=== PATIENT | male | born 1965 | race Caucasian/White ===

== ENCOUNTER 2018-04-12 19:48 | Observation (INO) | payer OTHER, SELFPAY ==
[2018-04-12 19:49] VITALS: PULSE 79; RESP 18; TEMP 36.8; O2SAT 97; BMI 25.0
--- NOTE | 2018-04-12 20:18 | EKG12_ITS ---
Test Reason : CP Blood Pressure : / mmHG Vent. Rate : 069 BPM Atrial Rate : 069 BPM P-R Int : 136 ms QRS Dur : 084 ms QT Int : 370 ms P-R-T Axes : 051 078 031 degrees QTc Int : 396 ms Normal sinus rhythm Normal ECG Confirmed by AFSHAN JAMES, WILLI ([id number]), graphics editor INNA SALAZAR ([id number]) on 04/13/2018 11:59:38 AM Referred By: YANIRA Confirmed By:WILLI CAVANAUGH MD
[2018-04-12] MEDS: Aspirin 81 MG TAB.CHEW 324 MG PO (20:30)
--- NOTE | 2018-04-12 20:45 | RAD_ITS ---
STUDY: X-RAY CHEST REASON FOR EXAM: Male, 52 years old. Dizziness TECHNIQUE: AP portable COMPARISON: None. FINDINGS: Lungs are mildly hyperinflated and there is interstitial prominence in the lower lobes. No focal lobar infiltration is observed.. There is no demonstrated pleural abnormality. Normal size heart. Normal mediastinum and thao. Normal visualized pulmonary arteries. Normal visualized aortic arch and descending thoracic aorta. Normal visualized thoracic spine. Normal visualized ribs, clavicles, and shoulders. There is no demonstrated abnormality of the visualized soft tissue structures of the upper abdomen. RAD/Chest 1 View (Portable) IMPRESSION: Mild hyperinflation and interstitial prominence. No acute cardiopulmonary pathology Electronically Signed: Jose Manuel Barroso MD at 21:57 EST , Service support ,
[2018-04-12] MEDS: 0.9% Normal Saline 1,000 ML 150 ML IV (20:47)
[2018-04-12 20:56] VITALS: BP 135/83; PULSE 66; RESP 23; O2SAT 98
[2018-04-12 21:07] LABS: Absolute Lymphocyte Count 3.62 X10^3/ul (0.83-4.51); Absolute Neutrophil Count 9.6 X10^3/uL (2.0-7.7); Basophil# 0.07 X10^3/uL; Basophil% 0.5 % (0-1); Eosinophil# 0.24 X10^3/uL; Eosinophils% 1.6 % (0-5); Hematocrit 48.7 % (40-54); Hemoglobin 15.8 g/dl (13.0-16.5); Lymphocyte # 3.62 X10^3/ul (4.0); Lymphocyte % 24.1 % (19-41); Mean Corp Hgb Conc 32.4 g/gl (32-36); Mean Corpuscular Hgb 29.8 pg (27.0-32.0); Mean Corpuscular Volume 91.7 fL (80-94); Mean Platelet Vol. 10.8 fl (6.2-12.0); Monocyte# 1.43 X10^3/uL; Monocyte% 9.5 % (0-10); Neutrophil # 9.59 X10^3/uL (2.7-7.7); Neutrophil % 63.9 % (47-70); Platelet Count 227 K/mm3 (150-450); RBC Distribution Width CV 13.7 % (11.6-14.6); RBC Distribution Width SD 45.6 fl (35.1-43.9); Red Blood Count 5.31 M/mm3 (4.6-6.2)
[2018-04-12 21:14] LABS: POSITIVE COUNT NO; POSITIVE DIFFERENTIAL NO; POSITIVE MORPHOLOGY NO
[2018-04-12 21:17] LABS: D-Dimer Quantitative (DVT/PE) 0.39 FEU/ug/m (0.27-0.49)
[2018-04-12 21:26] LABS: Anion Gap 6 (5-15); BUN 21 mg/dL (7-18); BUN/Creat Ratio 18.3 RATIO (10-20); Calcium,Total 8.8 mg/dL (8.5-10.1); Chloride 108 mmol/L (98-107); Creatinine, Serum 1.15 mg/dL (0.70-1.30); EST Glomerular Filtration Rate 71 mL/min (>60); Est Glom Filt Rate - Afr Amer 85 mL/min (>60); Estimated Creatinine Clearance 71.87 ml/min; Glucose 92 mg/dL (74-106); Potassium 4.2 mmol/L (3.5-5.1); Sodium Level 141 mmol/L (136-145)
--- NOTE | 2018-04-12 21:47 | HP.PCM_ITS ---
Problem List (1) Chest pain Status: Acute (2) Nausea and vomiting Status: Acute History of Present Illness Date of Admission: 04/12/18 Chief Complaint: chest pain The patient is a 52 year old M with a significant history of tobacco abuse;hypertension and hyperlipidemia who presents with one and a half to two weeks history of chest pain. His chest pain is sharp in quality and it is episodic. On a scale of 1-10 he rates as between 6 and 7. Patient reported that his symptoms first started with left arm numbness and pain. Later he developed nausea;vomiting; lightheadedness and episodic chest pain. He reports that his symptoms are relieved with sleeping. Because of his symptoms patient became anxious and he realized that his heart has been racing. Because of persistence of his symptoms patient came to the emergency department. Also patient reports diaphoresis. He is unsure whether diaphoresis occurs at the same time of chest pain or not. Reports history of hypertension and hyperlipidemia however he does not follow up with a PCP. Past Medical History Medical History: Medical History (Last Updated 04/13/18 @ 00:22 by Sascha Sheldon MD) Hyperlipidemia E78.5 Hypertension I10 Allergies Penicillins [PCN] Allergy (Verified 04/12/18 19:49) Itching Home Medications: Ambulatory Orders Medication Instructions Recorded Aspirin 81 mg PO DAILY 04/12/18 Surgical History: no surgical history Smoking Status: Current every day smoker Tobacco Use: Cigarettes Alcohol: Rare - *Family History Paternal History Items: Heart Disease - Report of father from heart attack in his 50s., Stroke - Father Review of Systems Constitutional: Denies: Chills, Fever, Weight Change HEENT: Denies: Head Aches, Sinus Congestion, Sinus Drainage Cardiovascular: Reports: Chest Pain, Palpitations Respiratory: Denies: Cough, Shortness of breath at rest, Sputum production Gastrointestinal: Reports: Nausea, Vomiting. Denies: Abdominal Pain Genitourinary: Denies: Dysuria Musculoskeletal: Denies: Joint Pain, Joint Tenderness Skin: Denies: Rash, Wounds Neurological: Reports: Numbness - Left arm. Denies: Focal weakness, Tingling Psychiatric: Reports: Anxiety. Denies: Depression, Homicidal Ideations, Suicidal Ideations Hematologic/ Lymphatic: Denies: Easy Bruising, Easy Bleeding VTE Information - Inpt Only VTE Present on Admission: No VTE Mechan Device Prophylaxis: None VTE Pharm Prophylaxis ordered?: Yes Patient Problems: Active and Suspected Problems (Last Updated 04/13/18 @ 00:22 by Sascha Sheldon MD) Chest pain (Acute) Nausea and vomiting (Acute) - Physical Exam General: Alert, Oriented x3, Cooperative HEENT: Atraumatic, PERRLA, EOMI, Normocephalic Neck: Supple, No JVD, Negative Carotid Bruits Lungs: Clear to auscultation, Normal air movement Cardiovascular: Regular rate, No murmurs Abdomen: Bowel Sounds Present, Soft, Non Tender Extremities: No edema, Capillary Refill Less than 3 Seconds Skin: No rashes, No breakdown Musculoskeletal: No Muscle Wasting Neurological: Neuro grossly intact Psych/Mental Status: Normal Affect, Appropriate Vital Signs Temp Pulse Resp BP Pulse Ox 98.2 F 66 23 H 135/83 H 98 04/12/18 19:49 04/12/18 20:56 04/12/18 20:56 04/12/18 20:56 04/12/18 20:56 Oxygen Delivery Method Room Air Weight: 74.661 kg Body Mass Index (BMI) 25.0 Laboratory Tests Past 24 Hrs 04/12/18 04/12/18 04/12/18 20:45 20:45 20:45 WBC 15.0 H RBC 5.31 Hgb 15.8 Hct 48.7 MCV 91.7 MCH 29.8 MCHC 32.4 RDW 13.7 RDW Differential 45.6 H Plt Count 227 MPV 10.8 Immature Gran % (Auto) 0.400 Neut % (Auto) 63.9 Lymph % (Auto) 24.1 [place] % (Auto) 9.5 Eos % (Auto) 1.6 Baso % (Auto) 0.5 Absolute Neuts (auto) 9.6 H Absolute Lymphs (auto) 3.62 Total Counted Not Reportable D-Dimer Quant (PE/DVT) 0.39 Sodium 141 Potassium 4.2 Chloride 108 H Carbon Dioxide 27.0 Anion Gap 6 BUN 21 H Creatinine 1.15 Estim Creat Clear Calc 71.87 Est GFR (MDRD) Af Amer 85 Est GFR (MDRD) Non-Af 71 BUN/Creatinine Ratio 18.3 Glucose 92 Calcium 8.8 Troponin I < 0.015 Assessment/Plan All Active Problems (Last Updated 04/13/18 @ 00:22 by Sascha Sheldon MD) Chest pain (Acute) Nausea and vomiting (Acute) The patient is a 52 year old M with a significant history of alcohol abuse; hypertension and hyperlipidemia who presents with one and a half to two weeks history of chest pain; nausea, vomiting, numbness of left hand, diaphoresis and palpitations. Chest pain Admit to a monitored bed on PCU CXR independently reviewed confirms no acute cardiopulmonary process. EKG independently reviewed confirms sinus rhythm Received aspirin 324 mg at emergency department. Continue ASA 81 mg p.o. daily SL NTG 0.4 mg prn as needed for chest pain High intensity statin started. Serial cardiac enzymes Stat EKG as needed for chest pain Treadmill stress test with nuclear imaging in the AM if the cardiac enzymes are negative. Patient reported that he has right-sided sciatica but he is willing to try running on a treadmill. Nausea and vomiting Could be due to autonomic symptoms from chest pain due to cardiac origin. It could also be viral. Rule out cardiac symptoms with stress test as above. HTN On admission blood pressure was above goal but not very excessive. Will trend blood pressure at this time. After stress test consider long-term blood pressure management. Hyperlipidemia Fasting lipids ordered. High intensity statin started. Tobacco abuse Counseled Patient refused nicotine patch. DVT prophylaxis Subcutaneous Lovenox. Code Visit OBSV E&M: 05011 Initial observation care L3
--- NOTE | 2018-04-12 21:50 | ED.VISSUMM ---
- ER Visit Summary Date of Service: 04/12/18 Chief Complaint: [Chest pain] History of Present Illness: The patient is a 52 M [presents the emergency department with complaint of intermittent chest discomfort over the last week and a half. Patient complains of feeling nauseated with standing. Patient had pain in the left chest and at times radiates to his left arm. Patient is never had symptoms like this before. He denies any diaphoresis or exertional dyspnea. Patient states that his father before the age of 53 of a heart attack. Patient used to see a doctor and has a history of hypertension and high cholesterol but is currently on no medications. Patient is a smoker. He denies recent travel or surgery.] Physical Examination: [HEENT-PERRLA, EOMI. Cranial nerves II through XII grossly intact. TMs clear. Mucous membranes moist. No adenopathy. Cardiovascular-regular rate and rhythm without murmur or ectopy Lungs-clear to auscultation, chest wall stable without crepitus or subcu emphysema Abdomen-normoactive bowel sounds, soft, nontender, no rebound or rigidity, no peritoneal signs. Extremities-intact ?4, normal range of motion, normal pulses, atraumatic] Test Results: EKG obtained arrival shows sinus rhythm with a ventricular rate of 69 bpm with no acute ST segment changes. CBC with differential is normal. Chemistries were normal. Troponin was less than 0.015. D-dimer was normal at 0.39. Chest x-ray showed nothing acute. [] Emergency Department Course and Treatment: [Patient received aspirin 324 mg p.o.] Treatment Plan: [Admit for further workup and evaluation. Patient's heart score is a 4.] Disposition: [Admit] Impression: [Chest pain-rule out acute coronary syndrome] This note was generated with [employer] dictation software. It may contain incorrect words, spelling, and punctuation that were not noted in review of the chart prior to signing ED Disposition - Plan for ED Patient: Chief Complaint: Dizziness Referrals: Care Physician,No Primary [Primary Care Provider] -
[2018-04-12 23:22] VITALS: BMI 25.0
[2018-04-12 23:23] VITALS: BP 140/68; PULSE 63; PULSE 66; RESP 18; TEMP 36.4; O2SAT 97
[2018-04-12 23:25] VITALS: BP 128/73
[2018-04-12 23:33] VITALS: O2SAT 96
[2018-04-12 23:34] VITALS: BMI 25.1
--- NOTE | 2018-04-13 00:15 | EKG12_ITS ---
Test Reason : ADMIT CP Blood Pressure : / mmHG Vent. Rate : 062 BPM Atrial Rate : 062 BPM P-R Int : 152 ms QRS Dur : 090 ms QT Int : 390 ms P-R-T Axes : 056 084 063 degrees QTc Int : 395 ms Normal sinus rhythm Normal ECG When compared with ECG of 01-DEC-2008 08:19, MANUAL COMPARISON REQUIRED, DATA IS UNCONFIRMED Confirmed by AFSHAN JAMES, WILLI ([id number]), editor farm journal INNA SALAZAR ([id number]) on 04/16/2018 7:49:02 AM Referred By: SAKSHI Confirmed By:WILLI CAVANAUGH MD
[2018-04-13] MEDS: Atorvastatin Calcium 80 MG Tablet PO (01:08)
[2018-04-13 03:05] VITALS: PULSE 61
[2018-04-13 03:11] LABS: Hematocrit 43.9 % (40-54); Hemoglobin 14.2 g/dl (13.0-16.5); Mean Corp Hgb Conc 32.3 g/gl (32-36); Mean Corpuscular Hgb 29.5 pg (27.0-32.0); Mean Corpuscular Volume 91.3 fL (80-94); Mean Platelet Vol. 10.4 fl (6.2-12.0); Platelet Count 230 K/mm3 (150-450); RBC Distribution Width CV 13.7 % (11.6-14.6); RBC Distribution Width SD 45.5 fl (35.1-43.9); Red Blood Count 4.81 M/mm3 (4.6-6.2); White Blood Count 12.9 K/mm3 (4.4-11.0)
[2018-04-13 03:13] LABS: Scan Indicated on CBC? Y/N NO
[2018-04-13 03:16] LABS: International Normalized Ratio 0.9; Partial Thromboplast Time 28.1 Seconds (24.1-36.2); Prothrombin Time (Protime)PT. 12.2 SECONDS (11.7-14.9)
[2018-04-13 03:34] LABS: Anion Gap 8 (5-15); BUN 18 mg/dL (7-18); BUN/Creat Ratio 18.2 RATIO (10-20); Calcium,Total 8.4 mg/dL (8.5-10.1); Chloride 111 mmol/L (98-107); Cholesterol 219 mg/dL (200); Creatinine, Serum 0.99 mg/dL (0.70-1.30); EST Glomerular Filtration Rate 84 mL/min (>60); Est Glom Filt Rate - Afr Amer 102 mL/min (>60); Estimated Creatinine Clearance 83.48 ml/min; Glucose 89 mg/dL (74-106); High Density Lipoprotein 28 mg/dL; Potassium 3.8 mmol/L (3.5-5.1); Sodium Level 143 mmol/L (136-145); Thyroid Stim Hormone (TSH) 1.58 uIU/mL (0.358-3.74); Triglycerides 221 mg/dL; Very Low Density Lipoprotein 44 mg/dL (5-40)
[2018-04-13 05:07] VITALS: BP 110/61; PULSE 61; RESP 11; TEMP 36.6; O2SAT 97
[2018-04-13] MEDS: Aspirin 81 MG TAB.CHEW PO (05:11)
[2018-04-13] MEDS: 0.9% NaCl Peripheral Flush Adult/Peds IV (05:14)
--- NOTE | 2018-04-13 05:55 | EKG12_ITS ---
Test Reason : AM EKG Blood Pressure : / mmHG Vent. Rate : 059 BPM Atrial Rate : 059 BPM P-R Int : 154 ms QRS Dur : 086 ms QT Int : 366 ms P-R-T Axes : 047 065 044 degrees QTc Int : 362 ms Sinus bradycardia Nonspecific T wave abnormality Abnormal ECG When compared with ECG of 12-APR-2018 23:17, MANUAL COMPARISON REQUIRED, DATA IS UNCONFIRMED Confirmed by LAURITA RUELAS ([id number]), development editor INNA SALAZAR ([id number]) on 04/25/2018 2:53:48 PM Referred By: SAKSHI Confirmed By:LAURITA RUELAS
[2018-04-13 09:05] VITALS: BP 124/74; PULSE 67; RESP 12; TEMP 36.6; O2SAT 99
[2018-04-13 10:40] VITALS: O2SAT 94
[2018-04-13 11:00] VITALS: PULSE 64
--- NOTE | 2018-04-13 11:36 | DCINST_ITS ---
- Discharge Diagnoses Current Active Problems: Current Active and Chronic Problems (Last Updated 04/13/18 @ 00:22 by Sascha Sheldon MD) Chest pain (Acute) Nausea and vomiting (Acute) You will use the following diet at home:: Cardiac Your food should be the consistency of: Regular Your liquids should be the consistency of: Regular/Thin Discharge Activity: Return to Normal Activity Allergies/Adverse Reactions: Allergies Penicillins [PCN] Allergy (Verified 04/12/18 19:49) Itching red dye Allergy (Verified 04/12/18 23:28) Swelling yellow dye Allergy (Verified 04/12/18 23:28) Swelling Medications to take at Discharge Aspirin 81 mg PO DAILY 04/12/18 Primary Care Physician: Care Physician,No Primary [Primary Care Provider] - Please follow up with your Primary Care Physician in: 1-2 weeks Test Results: Test results from this visit will be discussed in further detail at your follow- up appointment, if applicable. Proposed Discharge Date: 04/13/18
--- NOTE | 2018-04-13 12:24 | STRESSREP ---
Stress Test Report Exercise myocardial perfusion stress test. 52-year-old male with a history of chest pain. Medications aspirin Lipitor Lovenox. Stress protocol: Resting EKG demonstrates normal sinus rhythm with a rate of 60 bpm normal intervals are noted resting blood pressure is 130/80 mmHg. The patient exercised according to regular Arnold protocol for total duration of 4 minutes and 33 seconds the maximum heart rate attained was 157 bpm which was 94% of maximum predicted heart rate the maximum workload was 6.4 metabolic equivalents. At rest there were no ST or T wave changes noted suggest ischemia peak exercise upsloping ST changes only were noted we did not meet the criteria for ischemia. The resting blood pressure was 130/80 mmHg with a peak blood pressure of 182/104 mmHg. The test was terminated due to hip discomfort. Myocardial perfusion protocol. 11.8 mCi of technetium 99m sestamibi was injected at rest. The patient exercised according to regular Arnold protocol for 4-1/2 minutes attaining 6.4 metabolic equivalents at peak exercise 33.3 mCi of technetium 99m sestamibi was injected stress images were obtained stress and rest images were reconstructed and compared in the short axis vertical long and horizontal long axis. Gated images were also obtained next Perfusion SPECT analysis: Review of the stress images demonstrate normal uptake of tracer noted in all areas of the myocardium. The resting images similarly demonstrate normal uptake of tracer noted in all areas of the myocardium. Gated SPECT analysis: The gated ejection fraction is noted to be 75%. Conclusion: Normal exercise myocardial perfusion stress test at a moderate workload. No clinical angina noted. Preserved ejection fraction.
--- NOTE | 2018-04-13 12:36 | PCM.DC.SUM ---
<Elkin Mclaughlin - Last Filed: 04/13/18 12:36> Discharge Date and Diagnosis - Problem List Patient Problems: Active and Suspected Problems (Last Updated 04/13/18 @ 00:22 by Sascha Sehldon MD) Chest pain (Acute) Date of Admission: 04/12/18 Date of Discharge: 04/13/18 - Primary Discharge Diagnosis Active and Suspected Problems (Last Updated 04/13/18 @ 00:22 by Sascha Sheldon MD) chest pain 2/2 nausea / vomiting, viral syndrome hx nicotine abuse HTN HLD Hospital Course and Treatment Imaging Results: 04/13/18 05:55 Nuclear Stress Test - Treadmil [NM] AM (NON MEDS) Conclusion: Normal exercise myocardial perfusion stress test at a moderate workload. No clinical angina noted. Preserved ejection fraction. RAD/Chest 1 View (Portable) IMPRESSION: Mild hyperinflation and interstitial prominence. No acute cardiopulmonary pathology Operations: None Procedures: Stress test Summary of Care Provided: Hospital course: The patient is a 52 year old M with pmhx nicotine abuse, htn, hld, only on asa at home, who presented to the ER with c/o CP x 2 weeks described as sharp, episodic 6-7/10 left sided pain. He has also had several days of nausea and vomiting. He reported symptom relief with sleep. He came to the ER and had leukocytosis, negative ekg, negative cxr, negative troponin, neg tsh, neg d dimer. He was admitted to PCU on tele. No events on tele. Trop neg x 3. He underwent a stress test the following AM which was negative. He was discharged home in stable condition. He should follow up with his PCP in 1-2 weeks. This patient was seen by Elkin Mclaughlin PA-C under the supervision of Doctor Marissa. [] Patient Problems: Active and Suspected Problems (Last Updated 04/13/18 @ 00:22 by Sascha Sheldon MD) Chest pain (Acute) - Physical Exam General: Alert, Oriented x3, Cooperative HEENT: Atraumatic, PERRLA, EOMI, Normocephalic Neck: Supple, No JVD, Negative Carotid Bruits Lungs: Clear to auscultation, Normal air movement Cardiovascular: Regular rate, No murmurs Abdomen: Bowel Sounds Present, Soft, Non Tender Extremities: No edema, Capillary Refill Less than 3 Seconds Skin: No rashes, No breakdown Musculoskeletal: No Tenderness to Palpation of Joints or Extremities Neurological: Cranial nerves II-XII grossly intact Psych/Mental Status: Normal Affect, Appropriate Vital Signs Temp Pulse Resp BP Pulse Ox 97.8 F 64 12 124/74 H 94 04/13/18 09:05 04/13/18 11:00 04/13/18 09:05 04/13/18 09:05 04/13/18 10:40 Oxygen Delivery Method Room Air Weight: 164 lb 14.492 oz Body Mass Index (BMI) 25.0 Intake and Output for Last 24 Hours 04/11/18 04/12/18 04/13/18 23:59 23:59 23:59 Intake Total 100 / 100 410 / 410 Output Total 0 / 0 Balance 100 / 100 410 / 410 Laboratory Tests Past 24 Hrs 04/12/18 04/12/18 04/12/18 20:45 20:45 20:45 WBC 15.0 H RBC 5.31 Hgb 15.8 Hct 48.7 MCV 91.7 MCH 29.8 MCHC 32.4 RDW 13.7 RDW Differential 45.6 H Plt Count 227 MPV 10.8 Immature Gran % (Auto) 0.400 Neut % (Auto) 63.9 Lymph % (Auto) 24.1 [place] % (Auto) 9.5 Eos % (Auto) 1.6 Baso % (Auto) 0.5 Absolute Neuts (auto) 9.6 H Absolute Lymphs (auto) 3.62 Total Counted Not Reportable PT INR APTT D-Dimer Quant (PE/DVT) 0.39 Sodium 141 Potassium 4.2 Chloride 108 H Carbon Dioxide 27.0 Anion Gap 6 BUN 21 H Creatinine 1.15 Estim Creat Clear Calc 71.87 Est GFR (MDRD) Af Amer 85 Est GFR (MDRD) Non-Af 71 BUN/Creatinine Ratio 18.3 Glucose 92 Calcium 8.8 Troponin I < 0.015 Triglycerides Cholesterol LDL Cholesterol VLDL Cholesterol HDL Cholesterol TSH 04/12/18 04/13/18 04/13/18 23:20 02:50 02:50 WBC 12.9 H RBC 4.81 Hgb 14.2 Hct 43.9 MCV 91.3 MCH 29.5 MCHC 32.3 RDW 13.7 RDW Differential 45.5 H Plt Count 230 MPV 10.4 Immature Gran % (Auto) Neut % (Auto) Lymph % (Auto) [place] % (Auto) Eos % (Auto) Baso % (Auto) Absolute Neuts (auto) Absolute Lymphs (auto) Total Counted PT INR APTT D-Dimer Quant (PE/DVT) Sodium Potassium Chloride Carbon Dioxide Anion Gap BUN Creatinine Estim Creat Clear Calc Est GFR (MDRD) Af Amer Est GFR (MDRD) Non-Af BUN/Creatinine Ratio Glucose Calcium Troponin I < 0.015 < 0.015 Triglycerides Cholesterol LDL Cholesterol VLDL Cholesterol HDL Cholesterol TSH 04/13/18 04/13/18 02:50 02:50 WBC RBC Hgb Hct MCV MCH MCHC RDW RDW Differential Plt Count MPV Immature Gran % (Auto) Neut % (Auto) Lymph % (Auto) [place] % (Auto) Eos % (Auto) Baso % (Auto) Absolute Neuts (auto) Absolute Lymphs (auto) Total Counted PT 12.2 INR 0.9 APTT 28.1 D-Dimer Quant (PE/DVT) Sodium 143 Potassium 3.8 Chloride 111 H Carbon Dioxide 24.0 Anion Gap 8 BUN 18 Creatinine 0.99 Estim Creat Clear Calc 83.48 Est GFR (MDRD) Af Amer 102 Est GFR (MDRD) Non-Af 84 BUN/Creatinine Ratio 18.2 Glucose 89 Calcium 8.4 L Troponin I Triglycerides 221 H Cholesterol 219 H LDL Cholesterol 147 H VLDL Cholesterol 44 H HDL Cholesterol 28 L TSH 1.58 Discharge Diet: Low fat/ Low Cholesterol, 2000 mg Sodium Diet Discharge Activity: Return to Normal Activity Home Medications: Medications to take at Discharge Aspirin 81 mg PO DAILY 04/12/18 Primary Care Physician: Care Physician,No Primary [Primary Care Provider] - Please follow up with your Primary Care Physician in: 1-2 weeks Disposition: Home Minutes spent on discharge:: 35 Medical Necessity - Tobacco Use Smoking Status: Current every day smoker Tobacco Use: Cigarettes Meaningful Use Info Meaningful Use Diagnoses (Choose all that apply): None applicable <Asim Ann - Last Filed: 04/13/18 15:26> Hospital Course and Treatment Operations: None Procedures: Stress test Summary of Care Provided: Patient seen and examined independently. Data reviewed. I agree with the above note by the physician hair or beauty salon assistant. The patient is a 52 year old M presents with intermittent chest pain. Patient presents to the emergency room and had a stress test. Stress test was negative. Patient is otherwise doing well will be discharged to home. [] - Physical Exam General: Alert, Cooperative HEENT: Atraumatic, Normocephalic Lungs: Clear to auscultation, Normal air movement, No rhonchi, No wheeze Cardiovascular: Regular rate, Regular Rhythm, Normal S1, Normal S2, No murmurs Abdomen: Bowel Sounds Present, Soft, Non Tender, Non-Distended Extremities: No edema, No Calf Tenderness Vital Signs Temp Pulse Resp BP Pulse Ox 36.6 C 64 12 124/74 H 94 04/13/18 09:05 04/13/18 11:00 04/13/18 09:05 04/13/18 09:05 04/13/18 10:40 Oxygen Delivery Method Room Air Weight: 74.8 kg Body Mass Index (BMI) 25.0 Intake and Output for Last 24 Hours 04/11/18 04/12/18 04/13/18 23:59 23:59 23:59 Intake Total 100 / 100 410 / 410 Output Total 0 / 0 Balance 100 / 100 410 / 410 Laboratory Tests Past 24 Hrs 04/12/18 04/12/18 04/12/18 20:45 20:45 20:45 WBC 15.0 H RBC 5.31 Hgb 15.8 Hct 48.7 MCV 91.7 MCH 29.8 MCHC 32.4 RDW 13.7 RDW Differential 45.6 H Plt Count 227 MPV 10.8 Immature Gran % (Auto) 0.400 Neut % (Auto) 63.9 Lymph % (Auto) 24.1 [place] % (Auto) 9.5 Eos % (Auto) 1.6 Baso % (Auto) 0.5 Absolute Neuts (auto) 9.6 H Absolute Lymphs (auto) 3.62 Total Counted Not Reportable PT INR APTT D-Dimer Quant (PE/DVT) 0.39 Sodium 141 Potassium 4.2 Chloride 108 H Carbon Dioxide 27.0 Anion Gap 6 BUN 21 H Creatinine 1.15 Estim Creat Clear Calc 71.87 Est GFR (MDRD) Af Amer 85 Est GFR (MDRD) Non-Af 71 BUN/Creatinine Ratio 18.3 Glucose 92 Calcium 8.8 Troponin I < 0.015 Triglycerides Cholesterol LDL Cholesterol VLDL Cholesterol HDL Cholesterol TSH 04/12/18 04/13/18 04/13/18 23:20 02:50 02:50 WBC 12.9 H RBC 4.81 Hgb 14.2 Hct 43.9 MCV 91.3 MCH 29.5 MCHC 32.3 RDW 13.7 RDW Differential 45.5 H Plt Count 230 MPV 10.4 Immature Gran % (Auto) Neut % (Auto) Lymph % (Auto) [place] % (Auto) Eos % (Auto) Baso % (Auto) Absolute Neuts (auto) Absolute Lymphs (auto) Total Counted PT INR APTT D-Dimer Quant (PE/DVT) Sodium Potassium Chloride Carbon Dioxide Anion Gap BUN Creatinine Estim Creat Clear Calc Est GFR (MDRD) Af Amer Est GFR (MDRD) Non-Af BUN/Creatinine Ratio Glucose Calcium Troponin I < 0.015 < 0.015 Triglycerides Cholesterol LDL Cholesterol VLDL Cholesterol HDL Cholesterol TSH 04/13/18 04/13/18 02:50 02:50 WBC RBC Hgb Hct MCV MCH MCHC RDW RDW Differential Plt Count MPV Immature Gran % (Auto) Neut % (Auto) Lymph % (Auto) [place] % (Auto) Eos % (Auto) Baso % (Auto) Absolute Neuts (auto) Absolute Lymphs (auto) Total Counted PT 12.2 INR 0.9 APTT 28.1 D-Dimer Quant (PE/DVT) Sodium 143 Potassium 3.8 Chloride 111 H Carbon Dioxide 24.0 Anion Gap 8 BUN 18 Creatinine 0.99 Estim Creat Clear Calc 83.48 Est GFR (MDRD) Af Amer 102 Est GFR (MDRD) Non-Af 84 BUN/Creatinine Ratio 18.2 Glucose 89 Calcium 8.4 L Troponin I Triglycerides 221 H Cholesterol 219 H LDL Cholesterol 147 H VLDL Cholesterol 44 H HDL Cholesterol 28 L TSH 1.58 Discharge Diet: Low fat/ Low Cholesterol, 2000 mg Sodium Diet Discharge Activity: Return to Normal Activity Disposition: Home Minutes spent on discharge:: 35 Patient Condition:: Good Medical Necessity - Tobacco Use Smoking Status: Current every day smoker Tobacco Use: Cigarettes Meaningful Use Info Meaningful Use Diagnoses (Choose all that apply): None applicable Code Visit OBSV E&M: 77944 Observation care discharge
--- OUTSIDE RECORDS SUMMARY | 2018-05-29 15:22 | XMS RPT_ITS ---
:1965 Author Organization [facility] Care Team Providers Name Role Phone Primay Care Physicia, No Primary Care Unavailable Sascha Sheldon Admitting Unavailable Asim Ann Attending Unavailable Sascha Sheldon Admitting Unavailable Sascha Sheldon Attending Unavailable Primay Care Physicia, No Primary Care Unavailable Sascha Sheldon Consulting Unavailable Sascha Sheldon Admitting Unavailable Primay Care Physicia, No Primary Care Unavailable Asim Ann Consulting Unavailable Asim Ann Attending Unavailable Tavo, [place] Attending Unavailable Sascha Sheldon Referring Unavailable Tavo, [place] Attending Unavailable Sascha Sheldon Referring Unavailable PROBLEMS PROBLEMS DATE TYPE CONDITION / CODE ATTENDING STATUS SOURCE 05/07/2018 Unknown R07.9 - Chest Tavo, [place] Active Guy pain, unspecified Community / R07.9(ICD-10) Hospital Repository 05/09/2018 Unknown R07.89 - Other Tavo, [place] Active Guy chest pain / Community R07.89(ICD-10) Hospital Repository 05/09/2018 Unknown I10 - Essential Tavo, Cliff Active Guy (primary) Community hypertension / Hospital I10(ICD-10) Repository 05/09/2018 Unknown R42 - Dizziness Tavo, [place] Active Dao and giddiness / Community R42(ICD-10) Hospital Repository PROCEDURES PROCEDURES No Procedure Records FoundRESULTS RESULTS 12 LEAD ELECTROCARDIOGRAM Observed: 04/25/2018 Status: F Source: [place] 2:54 PM [facility] REPOSITORY [facility] Cardiovascular Services [address] [place] [address] 12 Lead EKG 04/13/18 0427 MR#: [id number] Acct: [id number] Name: DAYAMI MONTESINOS Rep #: [id number] : 1965 52 From: Anastacio London MD Attending Dr: Asim Ann DO Status: DIS JACKIE Ordering Dr: Sascha Sheldon MD Date: 04/13/18 Location: [facility] Sex: M C Admitted: 04/12/18 Test Reason : AM EKG Blood Pressure : / mmHG Vent. Rate : 059 BPM Atrial Rate : 059 BPM P-R Int : 154 ms QRS Dur : 086 ms QT Int : 366 ms P-R-T Axes : 047 065 044 degrees QTc Int : 362 ms Sinus bradycardia Nonspecific T wave abnormality Abnormal ECG When compared with ECG of 12-APR-2018 23:17, MANUAL COMPARISON REQUIRED, DATA IS UNCONFIRMED Confirmed by ANASTACIO LONDON ([id number]), food editor INNA SALAZAR ([id number]) on 04/25/2018 2:53:48 PM Referred By: SAKSHI Confirmed By:ANASTACIO LONDON 04/25/18 1453 Date Anastacio London MD CC: No Primary Care Physician; Asim Ann DO; Sascha Sheldon MD Signed 12 LEAD ELECTROCARDIOGRAM Observed: 04/16/2018 Status: F Source: [place] 7:49 AM [facility] REPOSITORY [facility] Cardiovascular Services [address] [place] [address] 12 Lead EKG 04/12/18 2317 MR#: [id number] Acct: [id number] Name: MONTESINOSADYAMI Rep #: [id number] : 1965 52 From: Cliff Cavanaugh MD Attending Dr: Asim Ann DO Status: DIS JACKIE Ordering Dr: Sascha Sheldon MD Date: 04/13/18 Location: [facility] Sex: M C Admitted: 04/12/18 Test Reason : ADMIT CP Blood Pressure : / mmHG Vent. Rate : 062 BPM Atrial Rate : 062 BPM P-R Int : 152 ms QRS Dur : 090 ms QT Int : 390 ms P-R-T Axes : 056 084 063 degrees QTc Int : 395 ms Normal sinus rhythm Normal ECG When compared with ECG of 01-DEC-2008 08:19, MANUAL COMPARISON REQUIRED, DATA IS UNCONFIRMED Confirmed by TAVO JAMES, CLIFF ([id number]), food editor INNA SALAZAR ([id number]) on 04/16/2018 7:49:02 AM Referred By: SAKSHI Confirmed By:CLIFF CAVANAUGH MD 04/16/18 0749 Date Cliff Cavanaugh MD CC: No Primary Care Physician; Asim Ann DO; Sascha Sheldon MD Signed DISCHARGE SUMMARY Observed: 04/13/2018 Status: F Source: [place] 3:27 PM [facility] REPOSITORY [facility] Medical Records Department [address] [place] [address] Discharge Summary 04/13/18 1236 MR#: [id number] Acct: [id number] Name: DAYAMI MONTESINOS Rep #: [id number] : 1965 52 From: Elkin PARTIDA PCP: Care Physician, No Primary Status: DIS JACKIE Y Location: [place] [address] <Elkin Mclaughlin - Last Filed: 04/13/18 12:36> Discharge Date and Diagnosis - Problem List Patient Problems: Active and Suspected Problems (Last Updated 04/13/18 @ 00:22 by Sascha Sheldon MD) Chest pain (Acute) Date of Admission: 04/12/18 Date of Discharge: 04/13/18 - Primary Discharge Diagnosis Active and Suspected Problems (Last Updated 04/13/18 @ 00:22 by Sascha Sheldon MD) chest pain 2/2 nausea / vomiting, viral syndrome hx nicotine abuse HTN HLD Hospital Course and Treatment Imaging Results: 04/13/18 05:55 Nuclear Stress Test - Treadmil [NM] AM (NON MEDS) Conclusion: Normal exercise myocardial perfusion stress test at a moderate workload. No clinical angina noted. Preserved ejection fraction. RAD/Chest 1 View (Portable) IMPRESSION: Mild hyperinflation and interstitial prominence. No acute cardiopulmonary pathology Operations: None Procedures: Stress test Summary of Care Provided: Hospital course: The patient is a 52 year old M with pmhx nicotine abuse, htn, hld, only on asa at home, who presented to the ER with c/o CP x 2 weeks described as sharp, episodic 6-7/10 left sided pain. He has also had several days of nausea and vomiting. He reported symptom relief with sleep. He came to the ER and had leukocytosis, negative ekg, negative cxr, negative troponin, neg tsh, neg d dimer. He was admitted to PCU on tele. No events on tele. Trop neg x 3. He underwent a stress test the following AM which was negative. He was discharged home in stable condition. He should follow up with his PCP in 1-2 weeks. This patient was seen by Elkin Mclaughlin PA-C under the supervision of Doctor Ann. [] Patient Problems: Active and Suspected Problems (Last Updated 04/13/18 @ 00:22 by Sascha Sheldon MD) Chest pain (Acute) - Physical Exam General: Alert, Oriented x3, Cooperative HEENT: Atraumatic, PERRLA, EOMI, Normocephalic Neck: Supple, No JVD, Negative Carotid Bruits Lungs: Clear to auscultation, Normal air movement Cardiovascular: Regular rate, No murmurs Abdomen: Bowel Sounds Present, Soft, Non Tender Extremities: No edema, Capillary Refill Less than 3 Seconds Skin: No rashes, No breakdown Musculoskeletal: No Tenderness to Palpation of Joints or Extremities Neurological: Cranial nerves II-XII grossly intact Psych/Mental Status: Normal Affect, Appropriate Vital Signs Temp Pulse Resp BP Pulse Ox 97.8 F 64 12 124/74 H 94 04/13/18 09:05 04/13/18 11:00 04/13/18 09:05 04/13/18 09:05 04/13/18 10:40 Oxygen Delivery Method Room Air Weight: 164 lb 14.492 oz Body Mass Index (BMI) 25.0 Intake and Output for Last 24 Hours Intake Total 100 / 100 410 / 410 Output Total 0 / 0 Balance 100 / 100 410 / 410 Laboratory Tests Past 24 Hrs WBC 15.0 H RBC 5.31 Hgb 15.8 Hct 48.7 MCV 91.7 MCH 29.8 MCHC 32.4 RDW 13.7 WBC 12.9 H Discharge Diet: Low fat/ Low Cholesterol, 2000 mg Sodium Diet Discharge Activity: Return to Normal Activity Home Medications: Medications to take at Discharge Aspirin 81 mg PO DAILY 04/12/18 Primary Care Physician: Care Physician,No Primary [Primary Care Provider] - Please follow up with your Primary Care Physician in: 1-2 weeks Disposition: Home Minutes spent on discharge:: 35 Medical Necessity - Tobacco Use Smoking Status: Current every day smoker Tobacco Use: Cigarettes Meaningful Use Info Meaningful Use Diagnoses (Choose all that apply): None applicable <Asim Ann - Last Filed: 04/13/18 15:26> Hospital Course and Treatment Operations: None Procedures: Stress test Summary of Care Provided: Patient seen and examined independently. Data reviewed. I agree with the above note by the physician surgeon assistant. The patient is a 52 year old M presents with intermittent chest pain. Patient presents to the emergency room and had a stress test. Stress test was negative. Patient is otherwise doing well will be discharged to home. [] - Physical Exam General: Alert, Cooperative HEENT: Atraumatic, Normocephalic Lungs: Clear to auscultation, Normal air movement, No rhonchi, No wheeze Cardiovascular: Regular rate, Regular Rhythm, Normal S1, Normal S2, No murmurs Abdomen: Bowel Sounds Present, Soft, Non Tender, Non-Distended Extremities: No edema, No Calf Tenderness Vital Signs Temp Pulse Resp BP Pulse Ox 36.6 C 64 12 124/74 H 94 04/13/18 09:05 04/13/18 11:00 04/13/18 09:05 04/13/18 09:05 04/13/18 10:40 Oxygen Delivery Method Room Air Weight: 74.8 kg Body Mass Index (BMI) 25.0 Intake and Output for Last 24 Hours Intake Total 100 / 100 410 / 410 Output Total 0 / 0 Balance 100 / 100 410 / 410 Laboratory Tests Past 24 Hrs WBC 15.0 H RBC 5.31 Hgb 15.8 Hct 48.7 MCV 91.7 MCH 29.8 MCHC 32.4 RDW 13.7 WBC 12.9 H Discharge Diet: Low fat/ Low Cholesterol, 2000 mg Sodium Diet Discharge Activity: Return to Normal Activity Disposition: Home Minutes spent on discharge:: 35 Patient Condition:: Good Medical Necessity - Tobacco Use Smoking Status: Current every day smoker Tobacco Use: Cigarettes Meaningful Use Info Meaningful Use Diagnoses (Choose all that apply): None applicable Code Visit OBSV E AND M: 14343 Observation care discharge 04/13/18 1242 <Electronically signed by Elkin PARTIDA> Date Elkin PARTIDA 04/13/18 1527<Electronically signed by Asim Ann DO> Cosigner Signature (if applicable): Date Asim Ann DO CC: No Primary Care Physician; JAQUAN Mclaughlin; Asim Ann DO Signed STRESS REPORT Observed: 04/13/2018 Status: F Source: [place] 12:29 PM [facility] REPOSITORY [facility] Cardiovascular Services [address] [place] [address] MR#: [id number] Acct: [id number] Name: DAYAMI MONTESINOS Rep #: [id number] : 1965 52 From: Cliff Cavanaugh MD Primary Care: Care Physician, No Primary Status: ADM JACKIE Ordering Dr: Sex: M C Stress Test Report Exercise myocardial perfusion stress test. 52-year-old male with a history of chest pain. Medications aspirin Lipitor Lovenox. Stress protocol: Resting EKG demonstrates normal sinus rhythm with a rate of 60 bpm normal intervals are noted resting blood pressure is 130/80 mmHg. The patient exercised according to regular Arnold protocol for total duration of 4 minutes and 33 seconds the maximum heart rate attained was 157 bpm which was 94% of maximum predicted heart rate the maximum workload was 6.4 metabolic equivalents. At rest there were no ST or T wave changes noted suggest ischemia peak exercise upsloping ST changes only were noted we did not meet the criteria for ischemia. The resting blood pressure was 130/80 mmHg with a peak blood pressure of 182/104 mmHg. The test was terminated due to hip discomfort. Myocardial perfusion protocol. 11.8 mCi of technetium 99m sestamibi was injected at rest. The patient exercised according to regular Arnold protocol for 4-1/2 minutes attaining 6.4 metabolic equivalents at peak exercise 33.3 mCi of technetium 99m sestamibi was injected stress images were obtained stress and rest images were reconstructed and compared in the short axis vertical long and horizontal long axis. Gated images were also obtained next Perfusion SPECT analysis: Review of the stress images demonstrate normal uptake of tracer noted in all areas of the myocardium. The resting images similarly demonstrate normal uptake of tracer noted in all areas of the myocardium. Gated SPECT analysis: The gated ejection fraction is noted to be 75%. Conclusion: Normal exercise myocardial perfusion stress test at a moderate workload. No clinical angina noted. Preserved ejection fraction. 04/13/18 1229 <Electronically signed by Cliff Cavanaugh MD> Date Cliff Cavanaugh MD CC: No Primary Care Physician; Asim Ann DO Date Dictated: 04/13/18 1224 Date Transcribed: 04/13/181223 Proof Operator: CO Signed 12 LEAD ELECTROCARDIOGRAM Observed: 04/13/2018 Status: F Source: [place] 12:00 PM [facility] REPOSITORY [facility] Cardiovascular Services [address] [place] [address] 12 Lead EKG 04/12/182002 MR#: [id number] Acct: [id number] Name: DAYAMI MONTESINOS Rep #: [id number] : 1965 52 From: Cliff Cavanaugh MD Attending Dr: Asim Ann DO Status: ADM JACKIE Ordering Dr: Juliana Mchugh DO Date: 04/12/18 Location: [facility] Sex: M C Admitted: 04/12/18 Test Reason : CP Blood Pressure : / mmHG Vent. Rate : 069 BPM Atrial Rate : 069 BPM P-R Int : 136 ms QRS Dur : 084 ms QT Int : 370 ms P-R-T Axes : 051 078 031 degrees QTc Int : 396 ms Normal sinus rhythm Normal ECG Confirmed by CLIFF CAVANAUGH MD ([id number]), food editor INNA SALAZAR ([id number]) on 04/13/2018 11:59:38 AM Referred By: YANIRA Confirmed By:CLIFF CAVANAUGH MD 04/13/18 1159 Date Cliff Cavanaugh MD CC: No Primary Care Physician; Asim Ann DO; Juliana Mchugh DO Signed DISCHARGE INSTRUCTION Observed: 04/13/2018 Status: F Source: [place] 11:36 AM [facility] REPOSITORY [facility] Medical Records Department [address] [place] [address] Instructions for Home/Discharge Instructions 04/13/18 1135 MR#: [id number] Acct: [id number] Name: DAYAMI MONTESINOS Rep #: [id number] : 1965 52 From: Elkin PARTIDA PCP: Care Physician, No Primary Status: ADM JACKIE - Discharge Diagnoses Current Active Problems: Current Active and Chronic Problems (Last Updated 04/13/18 @ 00:22 by Sascha Sheldon MD) Chest pain (Acute) Nausea and vomiting (Acute) You will use the following diet at home:: Cardiac Your food should be the consistency of: Regular Your liquids should be the consistency of: Regular/Thin Discharge Activity: Return to Normal Activity Allergies/Adverse Reactions: Allergies Penicillins [PCN] Allergy (Verified 04/12/18 19:49) Itching red dye Allergy (Verified 04/12/18 23:28) Swelling yellow dye Allergy (Verified 04/12/18 23:28) Swelling Medications to take at Discharge Aspirin 81 mg PO DAILY 04/12/18 Primary Care Physician: Care Physician,No Primary [Primary Care Provider] - Please follow up with your Primary Care Physician in: 1-2 weeks Test Results: Test results from this visit will be discussed in further detail at your follow-up appointment, if applicable. Proposed Discharge Date: 04/13/18 04/13/18 1136 <Electronically signed by Elkin PARTIDA> Date Elkin PARTIDA CC: No Primary Care Physician HISTORY AND PHYSICAL Observed: 04/13/2018 Status: F Source: [place] EXAM 4:59 AM [facility] REPOSITORY [facility] Medical Records Department [address] [place] [address] History and Physical 04/12/182146 MR#: [id number] Acct: [id number] Name: DAYAMI MONTESINOS Rep #: [id number] : 1965 52 From: Sascha Sheldon MD PCP: Care Physician, No Primary Status: ADM JACKIE Y Location: [place] [address] Problem List (1) Chest pain Status: Acute (2) Nausea and vomiting Status: Acute History of Present Illness Date of Admission: 04/12/18 Chief Complaint: chest pain The patient is a 52 year old M with a significant history of tobacco abuse;hypertension and hyperlipidemia who presents with one and a half to two weeks history of chest pain. His chest pain is sharp in quality and it is episodic. On a scale of 1-10 he rates as between 6 and 7. Patient reported that his symptoms first started with left arm numbness and pain. Later he developed nausea;vomiting; lightheadedness and episodic chest pain. He reports that his symptoms are relieved with sleeping. Because of his symptoms patient became anxious and he realized that his heart has been racing. Because of persistence of his symptoms patient came to the emergency department. Also patient reports diaphoresis. He is unsure whether diaphoresis occurs at the same time of chest pain or not. Reports history of hypertension and hyperlipidemia however he does not follow up with a PCP. Past Medical History Medical History: Medical History (Last Updated 04/13/18 @ 00:22 by Sascha Sheldon MD) Hyperlipidemia E78.5 Hypertension I10 Allergies Penicillins [PCN] Allergy (Verified 04/12/18 19:49) Itching Home Medications: Ambulatory Orders Medication Instructions Recorded Aspirin 81 mg PO DAILY 04/12/18 Surgical History: no surgical history Smoking Status: Current every day smoker Tobacco Use: Cigarettes Alcohol: Rare - *Family History Paternal History Items: Heart Disease - Report of father from heart attack in his 50s., Stroke - Father Review of Systems Constitutional: Denies: Chills, Fever, Weight Change HEENT: Denies: Head Aches, Sinus Congestion, Sinus Drainage Cardiovascular: Reports: Chest Pain, Palpitations Respiratory: Denies: Cough, Shortness of breath at rest, Sputum production Gastrointestinal: Reports: Nausea, Vomiting. Denies: Abdominal Pain Genitourinary: Denies: Dysuria Musculoskeletal: Denies: Joint Pain, Joint Tenderness Skin: Denies: Rash, Wounds Neurological: Reports: Numbness - Left arm. Denies: Focal weakness, Tingling Psychiatric: Reports: Anxiety. Denies: Depression, Homicidal Ideations, Suicidal Ideations Hematologic/ Lymphatic: Denies: Easy Bruising, Easy Bleeding VTE Information - Inpt Only VTE Present on Admission: No VTE Mechan Device Prophylaxis: None VTE Pharm Prophylaxis ordered?: Yes Patient Problems: Active and Suspected Problems (Last Updated 04/13/18 @ 00:22 by Sascha Sheldon MD) Chest pain (Acute) Nausea and vomiting (Acute) - Physical Exam General: Alert, Oriented x3, Cooperative HEENT: Atraumatic, PERRLA, EOMI, Normocephalic Neck: Supple, No JVD, Negative Carotid Bruits Lungs: Clear to auscultation, Normal air movement Cardiovascular: Regular rate, No murmurs Abdomen: Bowel Sounds Present, Soft, Non Tender Extremities: No edema, Capillary Refill Less than 3 Seconds Skin: No rashes, No breakdown Musculoskeletal: No Muscle Wasting Neurological: Neuro grossly intact Psych/Mental Status: Normal Affect, Appropriate Vital Signs Temp Pulse Resp BP Pulse Ox 98.2 F 66 23 H 135/83 H 98 04/12/18 19:49 04/12/18 20:56 04/12/18 20:56 04/12/18 20:56 04/12/18 20:56 Oxygen Delivery Method Room Air Weight: 74.661 kg Body Mass Index (BMI) 25.0 Laboratory Tests Past 24 Hrs Assessment/Plan All Active Problems (Last Updated 04/13/18 @ 00:22 by Sascha Sheldon MD) Chest pain (Acute) Nausea and vomiting (Acute) The patient is a 52 year old M with a significant history of alcohol abuse; hypertension and hyperlipidemia who presents with one and a half to two weeks history of chest pain; nausea, vomiting, numbness of left hand, diaphoresis and palpitations. Chest pain Admit to a monitored bed on PCU CXR independently reviewed confirms no acute cardiopulmonary process. EKG independently reviewed confirms sinus rhythm Received aspirin 324 mg at emergency department. Continue ASA 81 mg p.o. daily SL NTG 0.4 mg prn as needed for chest pain High intensity statin started. Serial cardiac enzymes Stat EKG as needed for chest pain Treadmill stress test with nuclear imaging in the AM if the cardiac enzymes are negative. Patient reported that he has right-sided sciatica but he is willing to try running on a treadmill. Nausea and vomiting Could be due to autonomic symptoms from chest pain due to cardiac origin. It could also be viral. Rule out cardiac symptoms with stress test as above. HTN On admission blood pressure was above goal but not very excessive. Will trend blood pressure at this time. After stress test consider long-term blood pressure management. Hyperlipidemia Fasting lipids ordered. High intensity statin started. Tobacco abuse Counseled Patient refused nicotine patch. DVT prophylaxis Subcutaneous Lovenox. Code Visit OBSV E AND M: 49001 Initial observation care L3 04/13/18 0459 <Electronically signed by Sascha Sheldon MD> Date Sascha Sheldon MD Cosigner Signature: Date (if applicable) CC: No Primary Care Physician; Sascha Sheldon MD Signed CBC-COMPLETE BLOOD CNT Collected: 04/13/2018 Status: F Source: [place] NO DIFF 2:50 AM [facility] REPOSITORY TYPE CODE TESTS RESULT OUT OF RANGE REFERENCE UNITS LAB L100.1000 4.4-11.0 K/mm3 High WBC 12.9 LAB L100.1200 4.6-6.2 M/mm3 Normal RBC 4.81 LAB L100.1300 13.0-16.5 g/dl Normal HGB 14.2 LAB L100.1400 40-54 % Normal HCT 43.9 LAB L100.1500 80-94 fL Normal MCV 91.3 LAB L100.1600 27.0-32.0 pg Normal MCH 29.5 LAB L100.1700 32-36 g/gl Normal MCHC 32.3 LAB L100.1810 11.6-14.6 % Normal RDW CV 13.7 LAB L100.1820 35.1-43.9 fl High RDW SD 45.5 LAB L100.1900 150-450 K/mm3 Normal PLT 230 LAB L100.2000 6.2-12.0 fl Normal MPV 10.4 Performed By: #### L100.0500 #### [facility] [address] [facility] [place], [place], [id number] PROTHROMBIN TIME W/INR Collected: 04/13/2018 Status: F Source: [place] 2:50 AM [facility] REPOSITORY TYPE CODE TESTS RESULT OUT OF RANGE REFERENCE UNITS LAB L300.4150 11.7-14.9 SECONDS Normal PROTIME 12.2 LAB L300.4200 Normal INR 0.9 Performed By: #### L300.3900, L300.4310 #### [facility] [address] [facility] [place], [place], [address] PARTIAL THROMBOPLAST Collected: 04/13/2018 Status: F Source: [place] TIME 2:50 AM [facility] REPOSITORY TYPE CODE TESTS RESULT OUT OF RANGE REFERENCE UNITS LAB L300.4310 24.1-36.2 Seconds Normal PTT 28.1 Performed By: #### L300.3900, L300.4310 #### [facility] [address] [facility] [place], [place], [address] TROPONIN-I Collected: 04/13/2018 Status: F Source: [place] 2:50 AM [facility] REPOSITORY Order Comment: 'TROP' Serial specimen #1, #2 or #3: 3 TYPE CODE TESTS RESULT OUT OF RANGE REFERENCE UNITS LAB L501.4010 <0.045 ng/mL Normal < 0.015 TROPONIN-I Result Comment: TROPONIN-I EXPECTED VALUES <0.045 Negative 0.045 - 0.590 Consistent with Cardiac Damage > OR = 0.600 Critical Value Not every elevated troponin is indicative of AL. These values should be used with clinical judgement in examining the patient's clinical picture for diagnosis. To establish a diagnosis of AL versus myocardial injury, there must be a demonstrated rise and/or fall in the troponin values, in addition to ischemic symptoms, EKG changes, new regional wall motion abnormality, and/or angiographical evidence. PLEASE NOTE: REFERENCE RANGES EDITED 17 Performed By: #### L501.4010 #### [facility] [address] [place], [place], [address] BASIC METABOLIC Collected: 04/13/2018 Status: F Source: [place] PROFILE (BMP) 2:50 AM [facility] REPOSITORY TYPE CODE TESTS RESULT OUT OF RANGE REFERENCE UNITS LAB L501.0100 74-106 mg/dL Normal GLU 89 Result Comment: Please note revised GLUCOSE reference range effective 2017. LAB L501.1000 7-18 mg/dL Normal BUN 18 LAB L501.1100 0.70-1.30 mg/dL Normal CREAT,SERUM 0.99 Result Comment: The validity of the calculated GFR AND GFRAA in patients over 70 years has not been determined. Clinical correlation is essential. LAB L501.1110 >60 mL/min Normal EST GFR 84 Result Comment: Non- GFR Calc LAB L501.1115 >60 mL/min Normal EST GFR - AA 102 Result Comment: GFR Calc LAB L501.1255 ml/min Normal Estimated CRCL 83.48 LAB L501.1300 10-20 RATIO Normal BUN/CRE 18.2 LAB L501.2200 8.5-10 mg/dL Low .1 CA 8.4 LAB L501.5300 136-14 mmol/L Normal 5 NA 143 LAB L501.5600 3.5-5. mmol/L Normal 1 K 3.8 LAB L501.5900 98-107 mmol/L High CL 111 LAB L501.6100 21.0-3 mmol/L Normal 2.0 CO2 24.0 LAB L501.6200 5-15 Normal GAP 8 Performed By: #### L500.2500, L500.4100, L501.9520 #### [facility] [address] [place], [address] LIPID PROFILE Collected: 04/13/2018 Status: F Source: [place] 2:50 AM [facility] REPOSITORY TYPE CODE TESTS RESULT OUT OF RANGE REFERENCE UNITS LAB L501.4900 200 mg/dL High CHOL 219 Result Comment: <200 mg/dL Desirable 200-240 mg/dL Borderline >240 mg/dL High Risk LAB L501.5000 mg/dL High TRIG 221 Result Comment: The drugs N-Acetylcysteine and Metamizole may falsely depress this assay. Serum Triglycerides Reference Interval Normal <150 mg/dL Borderline high 150 - 199 mg/dL High 200 - 499 mg/dL Very High > or = 500 mg/dL LAB L501.6400 mg/dL Low HDL 28 Result Comment: The drugs N-Acetylcysteine and Metamizole may falsely depress this assay. Reference Range HDL <40 mg/dL Low HDL Cholesterol HDL >or= 60 mg/dL High HDL Cholesterol LAB L501.6500 0-130 mg/dL High LDL 147 LAB L501.6600 5-40 mg/dL High VLDL 44 Performed By: #### L500.2500, L500.4100, L501.9520 #### [facility] [address] [facility] [facility] [place], [address] THYROID STIM HORMONE Collected: 04/13/2018 Status: F Source: DAO (TSH) 2:50 AM [facility] REPOSITORY TYPE CODE TESTS RESULT OUT OF RANGE REFERENCE UNITS LAB L501.9520 0.358-3.74 uIU/mL Normal TSH 1.58 Performed By: #### L500.2500, L500.4100, L501.9520 #### [facility] [address] [place], [place], [address] TROPONIN-I Collected: 04/12/2018 Status: F Source: DAO 11:20 PM [facility] REPOSITORY Order Comment: 'TROP' Serial specimen #1, #2 or #3: 2 TYPE CODE TESTS RESULT OUT OF RANGE REFERENCE UNITS LAB L501.4010 <0.045 ng/mL Normal < 0.015 TROPONIN-I Result Comment: TROPONIN-I EXPECTED VALUES <0.045 Negative 0.045 - 0.590 Consistent with Cardiac Damage > OR = 0.600 Critical Value Not every elevated troponin is indicative of AL. These values should be used with clinical judgement in examining the patient's clinical picture for diagnosis. To establish a diagnosis of AL versus myocardial injury, there must be a demonstrated rise and/or fall in the troponin values, in addition to ischemic symptoms, EKG changes, new regional wall motion abnormality, and/or angiographical evidence. PLEASE NOTE: REFERENCE RANGES EDITED 17 Performed By: #### L501.4010 #### [facility] [address] [facility] [place], [address] EMERGENCY DEPARTMENT Observed: 04/12/2018 Status: F Source: [place] SUMMARY 9:53 PM [facility] REPOSITORY [facility] Medical Records Department [address] [facility] [place] [address] Emergency Department Summary 04/12/18 2150 MR#: [id number] Acct: [id number] Name: DAYAMI MONTESINOS Fanta Rep #: [id number] : 1965 52 From: Juliana Mchugh DO PCP: Care Physician, No Primary Status: REG ER - ER Visit Summary Date of Service: 04/12/18 Chief Complaint: [Chest pain] History of Present Illness: The patient is a 52 M [presents the emergency department with complaint of intermittent chest discomfort over the last week and a half. Patient complains of feeling nauseated with standing. Patient had pain in the left chest and at times radiates to his left arm. Patient is never had symptoms like this before. He denies any diaphoresis or exertional dyspnea. Patient states that his father before the age of 53 of a heart attack. Patient used to see a doctor and has a history of hypertension and high cholesterol but is currently on no medications. Patient is a smoker. He denies recent travel or surgery.] Physical Examination: [HEENT-PERRLA, EOMI. Cranial nerves II through XII grossly intact. TMs clear. Mucous membranes moist. No adenopathy. Cardiovascular-regular rate and rhythm without murmur or ectopy Lungs-clear to auscultation, chest wall stable without crepitus or subcu emphysema Abdomen-normoactive bowel sounds, soft, nontender, no rebound or rigidity, no peritoneal signs. Extremities-intact 4, normal range of motion, normal pulses, atraumatic] Test Results: EKG obtained arrival shows sinus rhythm with a ventricular rate of 69 bpm with no acute ST segment changes. CBC with differential is normal. Chemistries were normal. Troponin was less than 0.015. D-dimer was normal at 0.39. Chest x- ray showed nothing acute. [] Emergency Department Course and Treatment: [Patient received aspirin 324 mg p.o.] Treatment Plan: [Admit for further workup and evaluation. Patient's heart score is a 4.] Disposition: [Admit] Impression: [Chest pain-rule out acute coronary syndrome] This note was generated with [employer] dictation software. It may contain incorrect words, spelling, and punctuation that were not noted in review of the chart prior to signing ED Disposition - Plan for ED Patient: Chief Complaint: Dizziness Referrals: Care Physician,No Primary [Primary Care Provider] - What to do if you have Problems For any increased pain, shortness of breath, bleeding, nausea or vomiting, chest pain, or any unexpected problems, contact your Primary Care Provider. Call [facility] ([phone]) or report to the closest Emergency Room. Call 911 if necessary. 04/12/18 1688 <Electronically signed by Juliana Mchugh DO> Date Juliana Mchugh DO Cosigner Signature (If Indicated): Date CC: No Primary Care Physician CBC W/DIFF, AUTOMATED Collected: 04/12/2018 Status: F Source: DAO 8:45 PM [facility] REPOSITORY TYPE CODE TESTS RESULT OUT OF RANGE REFERENCE UNITS LAB L100.1000 4.4-11.0 K/mm3 High WBC 15.0 LAB L100.1200 4.6-6.2 M/mm3 Normal RBC 5.31 LAB L100.1300 13.0-16.5 g/dl Normal HGB 15.8 LAB L100.1400 40-54 % Normal HCT 48.7 LAB L100.1500 80-94 fL Normal MCV 91.7 LAB L100.1600 27.0-32.0 pg Normal MCH 29.8 LAB L100.1700 32-36 g/gl Normal MCHC 32.4 LAB L100.1810 11.6-14.6 % Normal RDW CV 13.7 LAB L100.1820 35.1-43.9 fl High RDW SD 45.6 LAB L100.1900 150-450 K/mm3 Normal PLT 227 LAB L100.2000 6.2-12.0 fl Normal MPV 10.8 LAB L100.2100 47-70 % Normal NEUT% 63.9 LAB L100.2200 19-41 % Normal LY% 24.1 LAB L100.2300 0-10 % Normal MONO% 9.5 LAB L100.2400 0-5 % Normal EO% 1.6 LAB L100.2500 0-1 % Normal BASO% 0.5 LAB L100.2550 0.0-0.9 % Normal IM GRAN % 0.400 Result Comment: IG% - Immature Granulocytes (promyelocytes, myelocytes and metamyelocytes) > 1% indicates that a LEFT SHIFT is Present. LAB L100.2620 2.0-7.7 X10 3/uL High Absolute Neut 9.6 LAB L100.2720 0.83-4.51 X10 3/ul Normal Absolute Lymph 3.62 Performed By: #### L100.0100 #### [facility] [address] [place], [place], [id number] D-DIMER QUANTITATIVE Collected: 04/12/2018 Status: F Source: DAO (DVT/PE) 8:45 PM [facility] REPOSITORY TYPE CODE TESTS RESULT OUT OF RANGE REFERENCE UNITS LAB L300.8000 0.27-0.49 FEU/ug/m Normal D-DIMER 0.39 QUANT Result Comment: NORMAL D-Dimer level (<0.50) indicates no DVT or PE. Performed By: #### L300.8000 #### [facility] [address] [place], [place], [id number] BASIC METABOLIC Collected: 04/12/2018 Status: F Source: [place] PROFILE (BMP) 8:45 PM [facility] REPOSITORY TYPE CODE TESTS RESULT OUT OF RANGE REFERENCE UNITS LAB L501.0100 74-106 mg/dL Normal GLU 92 Result Comment: Please note revised GLUCOSE reference range effective 2017. LAB L501.1000 7-18 mg/dL High BUN 21 LAB L501.1100 0.70-1.30 mg/dL Normal CREAT,SERUM 1.15 Result Comment: The validity of the calculated GFR AND GFRAA in patients over 70 years has not been determined. Clinical correlation is essential. LAB L501.1110 >60 mL/min Normal EST GFR 71 Result Comment: Non- GFR Calc LAB L501.1115 >60 mL/min Normal EST GFR - AA 85 Result Comment: GFR Calc LAB L501.1255 ml/min Normal Estimated CRCL 71.87 LAB L501.1300 10-20 RATIO Normal BUN/CRE 18.3 LAB L501.2200 8.5-10 mg/dL Normal .1 CA 8.8 LAB L501.5300 136-14 mmol/L Normal 5 NA 141 LAB L501.5600 3.5-5. mmol/L Normal 1 K 4.2 LAB L501.5900 98-107 mmol/L High CL 108 LAB L501.6100 21.0-3 mmol/L Normal 2.0 CO2 27.0 LAB L501.6200 5-15 Normal GAP 6 Performed By: #### L500.2500, L501.4010 #### [facility] [address] [place], [place], [address] TROPONIN-I Collected: 04/12/2018 Status: F Source: [place] 8:45 PM [facility] REPOSITORY TYPE CODE TESTS RESULT OUT OF RANGE REFERENCE UNITS LAB L501.4010 <0.045 ng/mL Normal < 0.015 TROPONIN-I Result Comment: TROPONIN-I EXPECTED VALUES <0.045 Negative 0.045 - 0.590 Consistent with Cardiac Damage > OR = 0.600 Critical Value Not every elevated troponin is indicative of AL. These values should be used with clinical judgement in examining the patient's clinical picture for diagnosis. To establish a diagnosis of AL versus myocardial injury, there must be a demonstrated rise and/or fall in the troponin values, in addition to ischemic symptoms, EKG changes, new regional wall motion abnormality, and/or angiographical evidence. PLEASE NOTE: REFERENCE RANGES EDITED 17 Performed By: #### L500.2500, L501.4010 #### [facility] [address] [place], [address] CHEST 1 VIEW Observed: 04/12/2018 Status: F Source: [place] (PORTABLE) 8:19 PM [facility] REPOSITORY [facility] Imaging Services [address] [place] [address] Chest 1 View (Portable) MR#: [id number] Acct: [id number] Name: DAYAMI MONTESINOS Rep #: [id number] : 1965 M 52 From: Jose Manuel Barroso MD PCP: Care Physician, No Primary Status: REG ER Study: Chest 1 View (Portable) Date of Exam: 04/12/18 Exam# [id number] Ordering Dr: Juliana Mchugh DO STUDY: X-RAY CHEST REASON FOR EXAM: Male, 52 years old. Dizziness TECHNIQUE: AP portable COMPARISON: None. FINDINGS: Lungs are mildly hyperinflated and there is interstitial prominence in the lower lobes. No focal lobar infiltration is observed.. There is no demonstrated pleural abnormality. Normal size heart. Normal mediastinum and thao. Normal visualized pulmonary arteries. Normal visualized aortic arch and descending thoracic aorta. Normal visualized thoracic spine. Normal visualized ribs, clavicles, and shoulders. There is no demonstrated abnormality of the visualized soft tissue structures of the upper abdomen. RAD/Chest 1 View (Portable) IMPRESSION: Mild hyperinflation and interstitial prominence. No acute cardiopulmonary pathology Electronically Signed: Jose Manuel Barroso MD at 21:57 EST , Service support , CC: No Primary Care Physician; Remus Ungur DO Proof Operator: Signed ALLERGIES ALLERGIES DATE TYPE / CODE NAME / CODE REACTION SEVERITY SOURCE 04/12/2018 Drug Penicillins/F0 Itching Unknown [facility]160 [id number]([facility] 77182(SNOMED M) Repository CT) 04/12/2018 Drug red Swelling Unknown [facility]/4160 dye/[id number] Hospital 09436(SNOMED (RXNORM) Repository CT) 04/12/2018 Drug yellow Swelling Unknown [facility]/4160 dye/[id number] Hospital 01267(SNOMED (RXNORM) Repository CT) ENCOUNTERS ENCOUNTERS ADMIT/DISCHARGE ACCOUNT ADMITTING ENCOUNTER LOCATION SOURCE NUMBER CLASS 04/12/2018/ [id number] [place], Ambulatory Dao Dao 8 3 [facility] ing:PCURoom: Repository [id number]: 1 04/12/2018 [id number] Agyepong, Ambulatory BMSBuilding:B Dao 6 [facility] Repository 04/12/2018 [id number] Agyep[place], Ambulatory BMSBuilding:B Guy 7 [facility] Repository 04/12/2018/ [id number] Ambulatory BMSBuilding:W Guy 8 6 [facility] Repository 04/12/2018 [id number] Ambulatory BMSBuilding:W Dao 3 [facility] Repository PAYERS PAYERS ENCOUNTER GUARANTOR PAYER SUBSCRIBER SOURCE 04/12/2018 DAYAMI Jewell Primary MICHAEL J WILEDOB: Dao [id number] Insurance:[id number] Number: [place], [place] [id number] Repository 17087Qvp: (330) Date:3718-84-15[phone] ([place]) [address]YBJPRX, [place] [address]SO: 04/12/2018 Secondary NOT GIVENUNK Guy Insurance:SELF PAY [facility] Number: Effective Repository Date:2018-04-12 04/12/2018 DAYAMI Jewell Primary Michael J WileDOB: Dao [id number] Insurance:[facility] [id number] Number: [place], [place] [id number] Repository [address]Wbv: (330) Date:6835-17-38EL [phone] (HP) 587[address]QEJVGJ, [place] [address]VR: 04/12/2018 Secondary NOT GIVENUNK Dao Insurance:SELF PAY [facility] Effective Repository Date:2018-04-12 04/12/2018 DAYAMI Jewell Primary MICHAEL J WILEDOB: Guy [id number] Insurance:GPATPA [id number] [facility] Number: [place] [id number] Repository [address]Org: (330) Date:8425-61-38CN [phone] (HP) [id number], [place] [address]ET: 04/12/2018 Secondary NOT GIVENUNK Dao Insurance:SELF PAY [facility]: Effective Repository Date:2018-04-12 04/12/2018 DAYAMI Jewell Primary MICHAEL J WILEDOB: Guy [id number] Insurance:GPATPA [id number] [facility] Number: [place] [id number] Repository [address]Zry: (330) Date:7353-22-97BV [phone] (HP) 437[address]KRPGOZ, [place] [address]RH: 04/12/2018 Secondary NOT GIVENUNK Guy Insurance:SELF PAY [facility] Number: Effective Repository Date:2018-04-12 04/12/2018 DAYAMI Jewell Primary MICHAEL J WILEDOB: Guy [id number] Insurance:GPATPA [id number] [facility] Number: [place] [id number] Repository [address]Bcu: (330) Date:0228-22-12ZI [phone] (HP) [id number], [place] [address]CA: 04/12/2018 Secondary NOT GIVENUNK Dao Insurance:SELF PAY [facility] Number: Effective Repository Date:2018-04-12
== END 2018-04-13 11:35 | disposition home or self-care (01) ==
LOC: ED 20:32 → PCU 22:28
PROVIDERS: Admitting Provider Hospitalist; Emergency Provider Emergency Medicine
DX: R07.89 Other chest pain (principal); R11.2 Nausea with vomiting, unspecified; I10 Essential (primary) hypertension; E78.5 Hyperlipidemia, unspecified; R42 Dizziness and giddiness; Z79.82 Long term (current) use of aspirin; F17.210 Nicotine dependence, cigarettes, uncomplicated
CPT/HCPCS: 36415; 71045; 78452; 80048; 80061; 84443; 84484; 85025; 85027; 85379; 85610; 85730; 93005; 93017; 96360; 96361; 99218; 99283; 99406; A9500; J7030; A4216; G0378

== ENCOUNTER 2022-01-28 09:51 | Inpatient (IN) | payer OTHER, SELFPAY ==
[2022-01-28] VITALS (17 sets, daily range): BP systolic 107–174; BP diastolic 65–117; PULSE 53–92; RESP 13–20; TEMP 36.3–37.1; O2SAT 96–100; BMI 25.5; BMI 25.4
--- NOTE | 2022-01-28 10:40 | EDS_ITS ---
HPI History of Present Illness Chief Complaint: Chest Pain Informant: patient Onset/Context/Timing Onset: Today and Hours (4) Activity at onset: sudden Timing: Continuous Quality: Positive for Pressure Location: Substernal Worsened By: Nothing Relieved By: - (Belching) Associated Symptoms: Positive for Nausea, Vomiting, Lightheadedness and Acid Reflux; Negative for Diaphoresis, Dyspnea, Cough, Fever or Palpitations Narrative Narrative: Patient presents with chest pain that began this morning. Patient states it began approximately 6 AM which is 4 hours prior to arrival here. Patient states it is over the epigastric and lower sternal area. Patient states it radiates up into his chest. Patient states the pain radiates into his left arm and left wrist. Patient states he was able to belch which helped his pain in his epigastric area. Patient states his left arm pain has been persistent. Patient states nothing makes it worse. Patient admits to some nausea and vomiting today. Patient also admits to some lightheadedness and acid reflux. Patient denies any shortness of breath. Patient denies any diaphoresis. CVD Risk Factors: Positive for Family History 1' </=55 and Smoking; Negative for Hypertension, Diabetes or Hypercholesterolemia PE Risk Factors: Negative for Recent Travel/Surgery, Recent Immobilization, Prior DVT or PE, Cancer or OCP + Smoking + >/=35 TAD Risk Factors: Negative for Hypertension PFSH PFSH Medical History (Updated 01/28/22 @ 15:[address] Oswaldo Quintana MD) Hyperlipidemia Hypertension Home Medications aspirin 81 mg chewable tablet 81 mg PO DAILY heart health 04/12/18 [History Last Taken 01/28/22] ascorbic acid (vitamin C) 500 mg tablet (Vitamin C) 500 mg PO DAILY SUPPLEMENT 01/28/22 [History Last Taken 3 Days Ago ~01/25/22] Allergy/AdvReac Type Severity Reaction Status Date / Time red dye Allergy Swelling Verified 01/28/22 09:53 yellow dye Allergy Swelling Verified 01/28/22 09:53 Penicillins [PCN] AdvReac Itching Verified 01/28/22 09:53 Surgical History no surgical history no surgical history Social History (Updated 01/28/22 @ 14:[address] Lissett Parsons MD) household members: spouse Smoking Status: Current every day smoker tobacco type: cigarettes alcohol intake: never substance use type: does not use ROS ROS ED Constitutional Constitutional ED: Denies chills or fever(s) Eyes Eyes: Denies blurry vision or change in vision ENT ENT ED: Denies rhinorrhea or sore throat Cardiovascular Cardiovascular: Reports chest pain; Denies palpitations Respiratory/Chest Respiratory/Chest: Denies cough or dyspnea Gastrointestinal Gastrointestinal: Reports nausea and vomiting; Denies abdominal pain Genitourinary Genitourinary ED: Denies dysuria or hematuria Musculoskeletal Musculoskeletal: Denies back pain or neck pain Integumentary Denies abscess or rash Neurologic Neurologic: Denies headache(s) or weakness Allergic/Immunologic Allergic/Immunologic ED: Denies mouth swelling or urticaria EXAM Physical Exam Const Vital Signs: 01/28/22 09:53 01/28/22 10:10 01/28/22 10:56 Temperature 97.3 F L Temperature Source Temporal Pulse Rate 92 Respiratory Rate 18 Respiratory Effort Normal Non-Labored Blood Pressure 174/95 H Blood Pressure Mean 121 Pulse Ox 99 Oxygen Delivery Method Room Air Room Air 01/28/22 11:03 01/28/22 11:03 01/28/22 12:17 Temperature Temperature Source Pulse Rate 72 72 55 L Respiratory Rate 13 13 16 Respiratory Effort Blood Pressure 137/87 H 137/88 H 128/73 H Blood Pressure Mean 103 104 91 Pulse Ox 98 98 97 Oxygen Delivery Method Room Air Room Air Room Air 01/28/22 13:10 Temperature Temperature Source Pulse Rate 64 Respiratory Rate 16 Respiratory Effort Blood Pressure 148/70 H Blood Pressure Mean 96 Pulse Ox 96 Oxygen Delivery Method Room Air Positive well nourished and well developed General Appearance ED: well developed and NAD HEENT normocephalic and atraumatic Eyes PERRL and EOMs intact bilaterally Neck supple and no JVD Chest Wall palpation of chest normal Resp normal respiratory effort and clear to auscultation bilaterally Effort and Inspection: Negative for respiratory distress Cardio regular rate, regular rhythm and no murmurs GI normal to inspection, nondistended, normoactive bowel sounds, soft to palpation, non-tender and non-distended Extremity normal to inspection General Extremety ED: Negative for edema or tenderness General Extremity: Negative for edema Neuro oriented x3, CN's II-XII intact bilaterally and no sensory deficits noted Sensorium / Orientation: awake and alert Motor Exam: strength 5/5 throughout Psych mental status grossly normal Heart Score History: Moderately Suspicious ECG: Nonspecific Repolarization Age: >45 - <65 years Risk Factors: 1 or 2 Risk Factors Score: 4 MDM MDM MDM Narrative Medical decision making narrative: EKG was obtained. On my interpretation, it showed a normal sinus rhythm with a rate of 95. TN interval, QRS interval, and QTc intervals were all normal. [place] was normal. There are nonspecific ST-T wave changes. The nonspecific T wave inversion is more pronounced in V2 and V3 compared to previous EKG dated 04/13/2018. Portable 1 view chest x-ray was obtained. On my interpretation, lung horvath are clear. There is normal cardiac silhouette. Bony thorax is normal. There is no acute process noted. Radiologist also interpreted the x- ray and agrees. CBC shows a mild leukocytosis of 17.2. Basic metabolic profile was within normal limits. Initial high-sensitivity troponin was elevated at 188. Patient was advised of his findings. I recommended admission to the hospital for further evaluation of his elevated troponin and chest pain. P atient states he does not want to be admitted to the hospital. Patient wants to go home. Patient was advised that this could be cardiac in nature. Patient was advised that things could get worse and he could . Patient understands these risk and will sign out AGAINST MEDICAL ADVICE. Nurse was able to convince the patient to stay for repeat troponin. This was significantly elevated at 1985. After this return, I discussed the results with the patient. He is agreeable to stay. Patient will be started on heparin drip. Case was discussed with the hospitalist. Patient case will also be discussed with cardiology. Lab Data Attestation: I reviewed the patient's lab results. Labs: Laboratory Results - last 24 hr 01/28/22 01/28/22 01/28/22 10:09 10:09 10:09 WBC 17.2 H RBC 5.61 Hgb 16.2 Hct 50.8 MCV 90.6 MCH 28.9 MCHC 31.9 L RDW Std Deviation 44.0 H RDW Coeff of Benjamín 13.2 Plt Count 295 MPV 10.9 Immature Gran % (Auto) 0.600 Neut % (Auto) 71.7 H Lymph % (Auto) 19.0 [place] % (Auto) 7.0 Eos % (Auto) 1.2 Baso % (Auto) 0.5 Absolute Neuts (auto) 12.3 H Absolute Lymphs (auto) 3.27 Nucleated RBC % 0 PT 12.4 INR 1.0 APTT 31.0 Sodium 140 Potassium 3.8 Chloride 103 Carbon Dioxide 30.0 Anion Gap 7 BUN 12 Creatinine 1.17 Estim Creat Clear Calc 69.66 Est GFR (MDRD) Af Amer 83 Est GFR (MDRD) Non-Af 68 BUN/Creatinine Ratio 10.3 Glucose 137 H Hemoglobin A1c Calcium 9.6 Troponin I High Sens 188 H* 01/28/22 01/28/22 10:09 13:01 WBC RBC Hgb Hct MCV MCH MCHC RDW Std Deviation RDW Coeff of [place]jam[place] Plt Count MPV Immature Gran % (Auto) Neut % (Auto) Lymph % (Auto) [place] % (Auto) Eos % (Auto) Baso % (Auto) Absolute Neuts (auto) Absolute Lymphs (auto) Nucleated RBC % PT INR APTT Sodium Potassium Chloride Carbon Dioxide Anion Gap BUN Creatinine Estim Creat Clear Calc Est GFR (MDRD) Af Amer Est GFR (MDRD) Non-Af BUN/Creatinine Ratio Glucose Hemoglobin A1c 5.9 H Calcium Troponin I High Sens 1985 H* Radiography Chest X-Ray - ED: 1 View, Read by ED Physician, Read by Radiologist and No Acute Disease Diagnostic Testing: Clinical Impression(s) from Imaging Studies Chest X-Ray 01/28/22 10:53 IMPRESSION: Hyperinflation. The lungs are clear. Electronically Signed: Darrel Castañeda MD at 11:03 EDT Reading Location ID and State: [facility] / [place] , Service support , EKG Initial EKG: Attestation: I personally reviewed and interpreted this EKG as follows: Interpretation: Sinus Rhythm (95) and Non-Specific ST Changes Prior EKG tracings: available for review Prior: Changed (The nonspecific ST-T wave changes are slightly more pronounced in V2 and V3 compared to previous EKG dated 04/13/2018) Critical Care Time Critical Care Time: Yes Critical care time (excluding procedures): 30-74 minutes (44), Including time spent:, Discussing w/Patient &/or Family/Policy Service Coordinator, Discussing w/Consultants, Arranging Admission or Transfer and Performing Direct Patient Care at Bedside Discharge Plan Dx/Rx/DC Orders Clinical Impression: Chest pain, Elevated troponin, Non-STEMI (non-ST elevated myocardial infarction) Disposition Disposition: [facility] Discharge Date/Time: 01/28/22 15:25 Capacity Capacity Assessment Tool Can the patient make a choice & communicate that choice?: Yes Can the patient understand benefits, risks and alternatives?: Yes Can the patient make a logical, rational choice?: Yes Is there a Surrogate Available?: Yes
--- NOTE | 2022-01-28 10:48 | EKG12_ITS ---
Test Reason : CP Blood Pressure : / mmHG Vent. Rate : 095 BPM Atrial Rate : 095 BPM P-R Int : 142 ms QRS Dur : 086 ms QT Int : 354 ms P-R-T Axes : 053 083 093 degrees QTc Int : 444 ms Normal sinus rhythm Nonspecific T wave abnormality Abnormal ECG Confirmed by AFSHAN JAMES, WILLI ([id number]), newspaper editor ANDREA MOONEY ([id number]) on 01/31/2022 10:07:06 AM Referred By: ROBBI Confirmed By:WILLI CAVANAUGH MD
--- NOTE | 2022-01-28 10:53 | RAD_ITS ---
STUDY: X-RAY CHEST REASON FOR EXAM: Male, 56 years old. Chest pain TECHNIQUE: Single AP portable view of the chest. COMPARISON: Comparison is made with prior study dated 04/12/2018. FINDINGS: EKG electrodes are seen. Hyperinflation. The lungs are clear. There is no demonstrated pleural abnormality. Normal size heart. Normal mediastinum and thao. Normal visualized pulmonary arteries. Normal visualized aortic arch and descending thoracic aorta. There are degenerative changes of the visualized thoracic spine. Normal visualized ribs, clavicles, and shoulders. There is no demonstrated abnormality of the visualized soft tissue structures of the upper abdomen. RAD/Chest 1 View (Portable) IMPRESSION: Hyperinflation. The lungs are clear. Electronically Signed: Darrel Castañeda MD at 11:03 EDT ,
[2022-01-28] MEDS: Aspirin 81 MG TAB.CHEW 324 MG PO (11:00)
[2022-01-28 11:09] LABS: Absolute Lymphocyte Count 3.27 X10^3/uL (0.83-4.51); Absolute Neutrophil Count 12.3 X10^3/uL (2.0-7.7); Basophil# 0.09 X10^3/uL; Basophil% 0.5 % (0-1); Eosinophils% 1.2 % (0-5); Hematocrit 50.8 % (40-54); Hemoglobin 16.2 g/dL (13.0-16.5); Lymphocyte # 3.27 X10^3/ul (0.83-4.51); Mean Corp Hgb Conc 31.9 g/dL (32-36); Mean Corpuscular Hgb 28.9 pg (27.0-32.0); Mean Corpuscular Volume 90.6 fL (80-94); Mean Platelet Vol. 10.9 fl (6.2-12.0); NRBC Flagged by Analyzer 0 % (0-5); Neutrophil # 12.31 X10^3/uL (2.7-7.7); Neutrophil % 71.7 % (47-70); Platelet Count 295 K/mm3 (150-450); RBC Distribution Width CV 13.2 % (11.6-14.6); Red Blood Count 5.61 M/mm3 (4.6-6.2); White Blood Count 17.2 K/mm3 (4.4-11.0)
--- NOTE | 2022-01-28 11:12 | ED.RN ---
PT HAS ONE BABY ASA THIS MORNING DROPPED ONE BABY ASA ON GROUND. THIS RN OFFERED TO GRAB ANOTHER ASA BUT PT REFUSED. PT RECEIVED A TOTAL OF TWO ASA
[2022-01-28 11:28] LABS: Anion Gap 7 (5-15); BUN 12 mg/dL (7-18); BUN/Creat Ratio 10.3 RATIO (10-20); Calcium,Total 9.6 mg/dL (8.5-10.1); Chloride 103 mmol/L (98-107); Creatinine, Serum 1.17 mg/dL (0.70-1.30); EST Glomerular Filtration Rate 68 mL/min (>60); Est Glom Filt Rate - Afr Amer 83 mL/min (>60); Estimated Creatinine Clearance 69.66 ml/min; Glucose 137 mg/dL (74-106); Potassium 3.8 mmol/L (3.5-5.1); Sodium Level 140 mmol/L (136-145); Troponin-I HS (w/2H Reflex) 188 pg/mL (3.0-78.0)
[2022-01-28 13:06] LABS: Reflex Troponin-HS? (from REC) Y
[2022-01-28 13:38] LABS: Troponin-I HS 1985 pg/mL (3.0-78.0)
[2022-01-28] MEDS: Mag Hydrox/Al Hydrox/Simeth 30 ML UDC PO (13:40)
--- NOTE | 2022-01-28 14:01 | CM.ED ---
SW Note Referral Source: Case Find Referral Reason: No Primary Care Physician (PCP) SW reviewed chart and noted that patient has no PCP. SW provided patient with list of [facility] and [facility] Physician List for reference. No other issues or concerns voiced at this time. SW remains available for any additional needs. Plan: Provided patient with PCP information Beti CORLEY
[2022-01-28 14:13] LABS: Prothrombin Time (Protime)PT. 12.4 SECONDS (11.7-14.9)
[2022-01-28] MEDS: Heparin Injection (Vial) 5,000 UNIT/ML VIAL 5000 UNIT IV (14:24)
[2022-01-28] MEDS: HEPARIN/D5w 25,000 UNITS 25,000 UNITS/250 ML IV.SOLN. 11 UNITS CONT INF (14:25)
--- NOTE | 2022-01-28 14:45 | PCM.HP.STD ---
HPI - General General Date of Admission: 01/28/22 Date of Service: 01/28/22 Chief Complaint: Chest pain ongoing for weeks, worse today HPI Narrative DAYAMI MONTESINOS, is a 56 M, chronic smoker, who presents with chest pain that has been ongoing for weeks. It typically lasts for few minutes but has lately been lasting longer. It is not usually worse with exertion. Chest pain is usually substernal, crushing in nature, radiates to his left upper extremity and down his left arm, no associated diaphoresis or palpitations or orthopnea or PND. Today, the pain woke him up, lasted for more than 1 hour and that got him concerned. Vitals in the ED showed blood pressure 148/60, heart rate 54, respiratory rate 96, temperature 97.3 F, 96 respiratory WBC count 17.2, hemoglobin 16.2, platelets 295, INR is 1.7, creatinine is 1.17, up from 0.99. Troponins initially 188, repeat troponin is 1985. EKG shows nonspecific T wave changes, unchanged from previous. Chest x-ray is unremarkable. [facility] Medical History Hyperlipidemia Hypertension Home Medications aspirin 81 mg chewable tablet 81 mg PO DAILY heart health 04/12/18 [History Last Taken 01/28/22] ascorbic acid (vitamin C) 500 mg tablet (Vitamin C) 500 mg PO DAILY SUPPLEMENT 01/28/22 [History Last Taken 3 Days Ago ~01/25/22] Allergy/AdvReac Type Severity Reaction Status Date / Time red dye Allergy Swelling Verified 01/28/22 09:53 yellow dye Allergy Swelling Verified 01/28/22 09:53 Penicillins [PCN] AdvReac Itching Verified 01/28/22 09:53 Surgical History no surgical history Social History (Updated 01/28/22 @ 14:[address] Lissett Parsons MD) household members: spouse Smoking Status: Current every day smoker tobacco type: cigarettes alcohol intake: never substance use type: does not use ROS ROS Narrative Constitutional:Denies: Anorexia, Chills, Fever, Night Sweats, Weight Change Eyes: Denies: Blurred vision, Cataracts, Conjunctivae Inflammation, Pain, Redness, Vision Change HEENT: Denies: Difficulty Hearing, Difficulty Swallowing, Head Aches, Hearing Changes, Sinus Congestion, Sinus Drainage Cardiovascular: See HPI Respiratory: Denies: Cough, Shortness of breath at rest, Sputum production Gastrointestinal: Denies: Abdominal Pain, Nausea, Vomiting Genitourinary: Denies: Dysuria Musculoskeletal: Denies: Joint Pain, Joint stiffness, Joint swelling, Joint Tenderness Skin: Denies: Rash, Wounds Neurological: Denies: Numbness, Tingling, Focal weakness Vital Signs Vital Signs Vital Signs: 01/28/22 09:53 01/28/22 10:10 01/28/22 10:56 Temperature 97.3 F L Temperature Source Temporal Pulse Rate 92 Respiratory Rate 18 Respiratory Effort Normal Non-Labored Blood Pressure 174/95 H Blood Pressure Mean 121 Pulse Ox 99 Oxygen Delivery Method Room Air Room Air 01/28/22 11:03 01/28/22 11:03 01/28/22 12:17 Temperature Temperature Source Pulse Rate 72 72 55 L Respiratory Rate 13 13 16 Respiratory Effort Blood Pressure 137/87 H 137/88 H 128/73 H Blood Pressure Mean 103 104 91 Pulse Ox 98 98 97 Oxygen Delivery Method Room Air Room Air Room Air 01/28/22 13:10 Temperature Temperature Source Pulse Rate 64 Respiratory Rate 16 Respiratory Effort Blood Pressure 148/70 H Blood Pressure Mean 96 Pulse Ox 96 Oxygen Delivery Method Room Air Weight Weight: 78.6 kg Body Mass Index (BMI) 25.5 Physical Exam Narrative Physical exam: General: Alert, Oriented x3, Cooperative, No apparent distress HEENT: Atraumatic Oral: Moist Mucosa Neck: Supple Lungs: Diminished to auscultation Cardiovascular: HS I+II, regular, no murmurs Abdomen: Bowel Sounds Present, Soft, Non Tender Extremities: No edema Skin: No rashes, No breakdown Neurological: Grossly intact Psych/Mental Status: Appropriate Results Lab / Micro Data Result Diagrams: 01/28/22 10:09 01/28/22 10:09 Labs: Laboratory Results - last 24 hr 01/28/22 10:09: WBC 17.2 H, RBC 5.61, Hgb 16.2, Hct 50.8, MCV 90.6, MCH 28.9, MCHC 31.9 L, RDW Std Deviation 44.0 H, RDW Coeff of Benjamín 13.2, Plt Count 295, MPV 10.9, Immature Gran % (Auto) 0.600, Neut % (Auto) 71.7 H, Lymph % (Auto) 19.0, [place] % (Auto) 7.0, Eos % (Auto) 1.2, Baso % (Auto) 0.5, Absolute Neuts (auto) 12.3 H, Absolute Lymphs (auto) 3.27, Nucleated RBC % 0 01/28/22 10:09: Sodium 140, Potassium 3.8, Chloride 103, Carbon Dioxide 30.0, Anion Gap 7, BUN 12, Creatinine 1.17, Estim Creat Clear Calc 69.66, Est GFR (MDRD) Af Amer 83, Est GFR (MDRD) Non-Af 68, BUN/Creatinine Ratio 10.3, Glucose 137 H, Calcium 9.6, Troponin I High Sens 188 H* 01/28/22 10:09: PT 12.4, INR 1.0, APTT 31.0 01/28/22 13:01: Troponin I High Sens 1985 H* Radiology Impression Chest X-Ray 01/28/22 10:53 IMPRESSION: Hyperinflation. The lungs are clear. Electronically Signed: Darrel Castañeda MD at 11:03 EDT , Assessment & Plan Assessment/Plan (1) Non-STEMI (non-ST elevated myocardial infarction): PLAN: Plan 1. Acute non-STEMI in a known chronic smoker EKG showed no change in nonspecific T wave changes Started on heparin drip, will continue same Continue Plavix, Aspirin,add beta-michele Cardiology consulted from the ED Trend troponins 2D echo 2. Nicotine dependence, advised to quit, will manage on replacement 3. Hyperlipidemia, not on medications, will check lipid profile, Hgba1c 4. DVT PPx- on heparin drip I discussed and explained in details the various types of CODE STATUS-full code, DNR CCA, DNR CC. Patient chose to be full code and wants everything done to keep him alive. Time spent discussing CODE STATUS 16 minutes Charges/Coding Visit Charges Inpatient E&M: 61378 Init Hosp L3 Procedures Hospitalists Procedures: 69329 Advncd Care Plan 30 Min
--- NOTE | 2022-01-28 15:03 | CASEMGMT ---
According to the [employer] website, the following are in-network tertiary facilities: [facility], [place], [facility], [facility], [facility], [facility], and . Felix OSHEA CM
[2022-01-28] MEDS: Clopidogrel Bisulfate 75 MG Tablet PO (15:04)
--- NOTE | 2022-01-28 15:18 | CON.PCM.CA_ITS ---
Assessment & Plan Assessment/Plan (1) Non-STEMI (non-ST elevated myocardial infarction): PLAN: Recommended cardiac catheterization with coronary angiography and possible revascularization. Risks benefits and alternatives explained. He understands these and wishes to proceed. Further recommendations will follow results of coronary angiography. (2) Hyperlipidemia: PLAN: Repeat lipid profile. Start on statins. (3) Nicotine dependence: PLAN: Counseled to quit. HPI Consult Data Date of Consult: 01/28/22 HPI Narrative Reason for Consultation: Chest pain HPI Narrative: DAYAMI MONTESINOS, is a 56 M who presented to the emergency room of complaints of anterior chest discomfort that radiated down his left arm. He has been having chest pain off and on for the past many weeks however this morning's episode was prolonged so he decided to come to the emergency room. Denies any associated shortness of breath. No diaphoresis. 1 episode of nausea and vomiting. In the emergency room, patient had his troponins checked. These were elevated. Subsequently he is being admitted with a diagnosis of non-ST elevation myocardial infarction. [facility] Medical History (Updated 01/28/22 @ 15:[address] Oswaldo Quintana MD) Hyperlipidemia Hypertension Home Medications aspirin 81 mg chewable tablet 81 mg PO DAILY heart Screaming Sports 04/12/18 [History Last Taken 01/28/22] ascorbic acid (vitamin C) 500 mg tablet (Vitamin C) 500 mg PO DAILY SUPPLEMENT 01/28/22 [History Last Taken 3 Days Ago ~01/25/22] Allergy/AdvReac Type Severity Reaction Status Date / Time red dye Allergy Swelling Verified 01/28/22 09:53 yellow dye Allergy Swelling Verified 01/28/22 09:53 Penicillins [PCN] AdvReac Itching Verified 01/28/22 09:53 Surgical History no surgical history Social History (Updated 01/28/22 @ 14:[address] Lissett Parsons MD) household members: spouse Smoking Status: Current every day smoker tobacco type: cigarettes alcohol intake: never substance use type: does not use Physical Exam Narrative Comfortable. No apparent distress. No JVD. No carotid bruit. Heart sounds 1 and 2 are normal. No murmurs or rubs are noted. Chest is clear to auscultation bilaterally. Abdomen is soft. Alert oriented x3. No ankle edema noted. Risk Stratification Risk Stratification Applicable: No Charges/Coding Visit Charges Inpatient E&M: 09897 Init Hosp L3 Objective Data Vital Signs: Vital Signs Temp Pulse Resp BP Pulse Ox O2 Del Method 97.3 F L 64 16 148/70 H 96 Room Air 01/28/22 09:53 01/28/22 13:10 01/28/22 13:10 01/28/22 13:10 01/28/22 13:10 01/28/22 13:10 Oxygen Delivery Method Room Air Weight: 173 lb 4.533 oz Body Mass Index (BMI) 25.5 Lab / Micro Data Result Diagrams: 01/28/22 10:09 01/28/22 10:09 Labs: Laboratory Results - last 24 hr 01/28/22 10:09: WBC 17.2 H, RBC 5.61, Hgb 16.2, Hct 50.8, MCV 90.6, MCH 28.9, MCHC 31.9 L, RDW Std Deviation 44.0 H, RDW Coeff of Benjamín 13.2, Plt Count 295, MPV 10.9, Immature Gran % (Auto) 0.600, Neut % (Auto) 71.7 H, Lymph % (Auto) 19.0, [place] % (Auto) 7.0, Eos % (Auto) 1.2, Baso % (Auto) 0.5, Absolute Neuts (auto) 12.3 H, Absolute Lymphs (auto) 3.27, Nucleated RBC % 0 01/28/22 10:09: Sodium 140, Potassium 3.8, Chloride 103, Carbon Dioxide 30.0, Anion Gap 7, BUN 12, Creatinine 1.17, Estim Creat Clear Calc 69.66, Est GFR (MDRD) Af Amer 83, Est GFR (MDRD) Non-Af 68, BUN/Creatinine Ratio 10.3, Glucose 137 H, Calcium 9.6, Troponin I High Sens 188 H* 01/28/22 10:09: PT 12.4, INR 1.0, APTT 31.0 01/28/22 13:01: Troponin I High Sens 1985 H* Cardiology Labs/Tests 01/28/22 10:09: WBC 17.2 H, RBC 5.61, Hgb 16.2, Hct 50.8, MCV 90.6, MCH 28.9, MCHC 31.9 L, Plt Count 295, MPV 10.9, Immature Gran % (Auto) 0.600, Neut % (Auto) 71.7 H, Lymph % (Auto) 19.0, [place] % (Auto) 7.0, Eos % (Auto) 1.2, Baso % (Auto) 0.5, Absolute Neuts (auto) 12.3 H, Nucleated RBC % 0 01/28/22 10:09: Sodium 140, Potassium 3.8, Chloride 103, Carbon Dioxide 30.0, Anion Gap 7, BUN 12, Creatinine 1.17, Est GFR (MDRD) Af Amer 83, Est GFR (MDRD) Non-Af 68, BUN/Creatinine Ratio 10.3, Glucose 137 H, Calcium 9.6 01/28/22 10:09: PT 12.4, INR 1.0, APTT 31.0 Rhythm: EKG: ECHO: Stress Test: Cardiac Cath: PCI: CT Surgery: Holter monitor: EPS: PPM: CXR: Chest CT Scan: Radiography Diagnostic Testing: Radiology Impression Chest X-Ray 01/28/22 10:53 IMPRESSION: Hyperinflation. The lungs are clear. Electronically Signed: Darrel Castañeda MD at 11:03 EDT ,
[2022-01-28 16:01] LABS: Hemoglobin A1c 5.9 % (3.8-5.6)
--- NOTE | 2022-01-28 17:00 | EKG12_ITS ---
Test Reason : Blood Pressure : / mmHG Vent. Rate : 062 BPM Atrial Rate : 062 BPM P-R Int : 136 ms QRS Dur : 088 ms QT Int : 438 ms P-R-T Axes : 057 085 106 degrees QTc Int : 444 ms Normal sinus rhythm T wave abnormality, consider anterolateral ischemia Abnormal ECG When compared with ECG of 28-JAN-2022 17:31, MANUAL COMPARISON REQUIRED, DATA IS UNCONFIRMED Confirmed by AFSHAN JAMES, WILLI ([id number]), associate editor ANDREA MOONEY ([id number]) on 02/01/2022 12:44:58 PM Referred By: Confirmed By:WILLI CAVANAUGH MD
--- NOTE | 2022-01-28 17:18 | CL.I_ITS ---
Patient Name: DAYAMI MONTESINOS Study Date: 01/28/2022 Performing: Oswaldo Quintana MD Ht: 69 inches 175.26 cm : 1965 Wt: 173.5 lbs 78.6 kg Age: 56 Gender: male BSA: 1.94 PROCEDURE(S) PERFORMED DC01-(72333)LHC/COR/LV IC12-(66328/C9600)JESSY W/WO PTCA, SINGLE CORONARY ARTERY CLINICAL PROFILE AND CO-MORBIDITIES Heart Failure: None CONCLUSIONS 90% Mid D1 80% Mid RCA RECOMMENDATIONS ASA Indefinitley Plavix for at least 12 months Routine post interventional care DESCRIPTION OF PROCEDURE The patient arrived to the procedure lab. The risks and benefits of the procedure as well as a full description of our services here and lack of surgical backup were fully explained to the patient and/or their significant other prior to the catheterization. The Timeout was completed, verifying the correct patient and procedure. The patient's procedural site was prepped and draped in the usual fashion. Local anesthetic was given subcutaneously to right radial region with Lidocaine 2%. Using a modified Seldinger technique, arterial access was obtained via the right radial artery, a 6Fr sheath was inserted.. Left Coronary Artery selective angiography was performed in multiple views using a 5 Fr. 4.0 [place] catheter. Right Coronary Artery selective angiography was then performed in multiple views using a 5 Fr. 4.0 [place] catheter. Left Ventriculography was performed in HORN projection using a 5 Fr. Pigtail catheter. LV to AO pullback pressures were then recorded XB 3.0 Guide catheter was inserted and engaged into the LCA. Runthrough Guide wire was advanced to the 1st Diagonal. Synergy 2.5 x 12 Drug Eluting stent was inserted. Drug Eluting stent was advanced across the lesion in the first diagonal, mid. Angiogram performed pre stent deployment. Angiogram performed post stent deployment. Synergy 2.5 x 24 Drug Eluting stent was inserted. Drug Eluting stent was removed intact, failed to cross lesion Synergy 2.5 x 20 Drug Eluting stent was inserted. Drug Eluting stent was advanced across the lesion in the first diagonal, mid. Angiogram performed pre stent deployment. NC Emerge 2.5 x 20 Balloon catheter was inserted. Balloon catheter was advanced across lesion in the first diagonal, mid. Angiogram performed pre balloon dilatation. Angiogram performed post balloon dilatation. Angiogram performed post balloon dilatation. CORONARY ANGIOGRAPHY DOMINANCE: Right Dominant LEFT HEART ASSESSMENT Left Ventricular Ejection Fraction: by LV Gram 70 % LVEDP: 11 mmHg LEFT MAIN: Angiographically normal LEFT ANTERIOR DESCENDING ARTERY: No significant disease noted DIAGONAL 1: Proximal - 70 % Stenosis, Mid - 90 % Stenosis CIRCUMFLEX ARTERY: No significant disease noted RIGHT CORONARY ARTERY: MID RCA: 80 % Stenosis INTERVENTION INFORMATION LESION SITE: 1st Diagonal (Mid) Pre Stenosis: 90 % Pre intervention MAURIZIO flow: 3 PROCEDURE: Drug Eluting Stent with post dilatation Post Stenosis: 0 % Post intervention MAURIZIO flow: 3 Lesion Devices: Cardinal 6 Fr XB3.0 100cm Guide Catheter Terumo .014 Runthrough Extra Floppy 180cm straight Jero Sci Synergy MR JESSY 2.50x12 Jero Sci Synergy MR JESSY 2.50x20 Jero Sci NC EMERGE MR 2.50x20 BALLOON COMPLICATIONS No Complications PROCEDURE MEDICATIONS Versed 2 mg IV Fentanyl 50 mcg IV Oxygen: 2 L/min via nasal cannula Brilinta 180 mg PO @ 01/28/2022 15:54:49 Heparin 6000 unit(s) IV 01/28/2022 15:57:34 Heparin 2000 unit(s) IV 01/28/2022 16:17:03 Nitro 300 mcg IC 01/28/2022 16:33:51 Verapamil 2.5mg, Ntg 100mcgs given IA 01/28/2022 15:45:19 IV Bolus: .9 NaCl 500 ml total 01/28/2022 16:53:34 SUMMARY OF HEMODYNAMIC DATA Time AIR REST ECG 15:30:01 AO 103/63 (79) SA 15:52:05 LV 141/-5, 6 16:38:15 LV 127/-7, 10 16:38:21 LV 133/5, 15 16:39:57 LV 120/3, 11 16:40:03 LVp 105/3, 13 16:40:08 AOp 114/62 (83) 16:40:13 Signed By Oswaldo Quintana MD On 01/28/2022 17:17:55 Oswaldo Quintana MD
--- NOTE | 2022-01-28 17:19 | CRPHASE1 ---
Patient Communication Former Patient:: Phase I PHII Cardiac Rehab Discussed with Patient:: Yes Guide to Cardiac Rehab Given to Patient:: Yes Cardiac Rehab Facility Choice List Given to Patient:: Yes Refer Phase II Cardiac Rehab:: Yes Cardiac Rehabilitation Info Cardiac Rehabilitation Program Information: Cardiac Rehabilitation is important for patients like you who are recovering from a heart problem. Cardiac rehabilitation programs are recognized as integral to the continued care of the patient with coronary heart disease. The cardiac rehabilitation program is designed to optimize a patient's physical, psychological, and social functioning. Health daycare assistant work in cardiac rehabilitation programs and assist you with getting the treatments you need to get stronger and healthier - like exercise, healthy eating habits, and medications. Cardiac rehabilitation has been show to help people with heart problems live longer and have better life enjoyment than people who do not go to cardiac rehabilitation. Please contact the Cardiac Rehabilitation Program at [facility] at in two weeks if you have not heard from them.
--- NOTE | 2022-01-28 17:20 | CRPH1.INSTRU ---
General Education CAD and cardiac anatomy and function:: Patient communicates acknowledgment Explanation of diagnoses and procedures:: Patient communicates acknowledgment Sign/Symptoms of MS:: Patient communicates acknowledgment Antiplatelet therapy: Patient communicates acknowledgment Smoking Patient Nicotine/Smoking Risk Factors Are:: Cigarettes Recommendations Include:: Smoking cessation strategies/Smoking packet, Participation in a smoking cessation program Nicotine/Smoking Response Code:: Patient communicates acknowledgment Dyslipidemia Patient Dyslipidemia Risk Factors Are:: Total Cholesterol, Triglycerides Dyslipidemia Response Code:: Patient communicates acknowledgment Overweight/Obesity Patient Overweight/Obesity Risk Factors Are:: BMI Normal [24-29 & > 65 years old] Recommendations Include:: Exercise 5-7 times/week Overweight/Obesity:: Patient communicates acknowledgment Hypertension Patient Hypertension Risk Factors Are:: No documented hx of HTN Recommendations Include:: Maintain BP <130/85 Hypertension:: Patient communicates acknowledgment Heart Disease Patient Heart Disease Risk Factors Are:: Previous cardiac event Recommendations Include:: Educated family members of their risk Heart Disease Response Code:: Patient communicates acknowledgment Diabetes Patient Diabetes Risk Factors Are:: No documented hx of diabetes Recommendations Include:: Maintain fasting blood sugars 70-110 md/dL, Maintain HgbA1c of 6% or less Diabetes:: Patient communicates acknowledgment Metabolic Syndrome Patient Metabolic Syndrome Risk Factors Are [3 of 5]:: High triglyceride >150 Recommendations Include:: Reinforce compliance to risk factor modifications Metabolic Syndrome Response Code:: Patient communicates acknowledgment Sedentary Patient Sedentary Risk Factors Are:: Lack of regular exercise Recommendations Include:: Aerobic exercise 5-7 times/week for 20-30 minutes continuously, Benefits of regular exercise, Discussed home walking program, Monitored Outpatient Cardiac Rehab Sedentary Response Code:: Patient communicates acknowledgment Stress Recommendations Include:: Identification of stressors, and assessment of coping skills, Stress management techniques Stress Response Code:: Patient communicates acknowledgment
--- NOTE | 2022-01-28 17:31 | EKG12_ITS ---
Test Reason : post pci Blood Pressure : / mmHG Vent. Rate : 060 BPM Atrial Rate : 060 BPM P-R Int : 138 ms QRS Dur : 084 ms QT Int : 384 ms P-R-T Axes : 053 089 091 degrees QTc Int : 384 ms Normal sinus rhythm T wave abnormality, consider anterolateral ischemia Abnormal ECG When compared with ECG of 28-JAN-2022 10:00, MANUAL COMPARISON REQUIRED, DATA IS UNCONFIRMED Confirmed by AFSHAN JAMES, WILLI ([id number]), market editor ADNREA MOONEY ([id number]) on 02/01/2022 12:47:11 PM Referred By: Issa Confirmed By:WILLI CAVANAUGH MD
--- NOTE | 2022-01-28 17:45 | ECHOCS_ITS ---
Reason For Study: Chest pain Procedure This was a 2D Doppler, Color Flow transthoracic echocardiogram. The study was technically difficult. Exam performed portable in patient room. Left Ventricle The left ventricle is normal in size, thickness, sytstolic function, and diastolic function. The left ventricular ejection fraction is 65 %. Right Ventricle Normal right ventricle. Atria The left and right atria are normal. Mitral Valve The mitral valve is structurally normal. No prolapse or stenosis seen. Tricuspid Valve Normal tricuspid valve. Aortic Valve Normal aortic valve. Pulmonic Valve The pulmonic valve is not well visualized. Great Vessels Normal sized aortic root. Pericardium/Pleural No pericardial effusion. Medication Diluted definity 2ml given slow IV push to enhance endocardial definition. MMode/2D Measurements & Calculations LVIDd: 4.2 cm IVSd: 0.94 cm Ao root diam: 2.6 cm LVIDs: 1.8 cm LVPWd: 0.81 cm RVDd: 3.4 cm FS: 56.4 % LAV(MOD-bp): 41.4 ml LVAd ap4: 22.4 cm2 SV(MOD-sp4): 41.5 ml LAV(MOD-bp) Indexed: 21.3 ml/m2 LVLd ap4: 7.7 cm LAV(MOD-sp2): 45.1 ml EDV(MOD-sp4): 54.2 ml LAV(MOD-sp4): 36.2 ml EDV(sp4-el): 55.6 ml LVAs ap4: 10.0 cm2 LVLs ap4: 6.6 cm ESV(MOD-sp4): 12.7 ml ESV(sp4-el): 12.8 ml EF(MOD-sp4): 76.7 % EF(sp4-el): 77.0 % SV(sp4-el): 42.8 ml LA A4 area: 14.2 cm2 LA dimension(2D): 3.7 cm RA A4 area: 16.2 cm2 Doppler Measurements & Calculations MV E max carter: 63.4 cm/sec Lat Peak E' Carter: 11.2 cm/sec Med Peak E' Carter: 8.2 cm/sec MV A max carter: 70.5 cm/sec E/E' lat: 5.6 E/E' med: 7.7 MV E/A: 0.90 Ao V2 max: 166.3 cm/sec LV V1 max: 120.8 cm/sec PA V2 max: 134.1 cm/sec Ao max P.1 mmHg LV V1 max P.8 mmHg LV V1 mean P.9 mmHg LV V1 mean: 80.5 cm/sec LV V1 VTI: 26.3 cm ECHO/Echo Complete W/ Contrast Interpretation Summary The left ventricular ejection fraction is 65 %. Ordering Physician: Lissett Parsons Performed By: Mimi Rodriguez RDCS
[2022-01-28] MEDS: 0.9% Saline Lock 10 ML Syringe IV (17:55)
[2022-01-28] MEDS: 0.9% Normal Saline 1,000 ML 150 ML IV (17:55)
[2022-01-28] MEDS: Carvedilol 3.125 MG TABLET PO (21:18)
[2022-01-28] MEDS: Atorvastatin Calcium 40 MG Tablet PO (21:18)
[2022-01-28] MEDS: Clopidogrel Bisulfate 300 MG Tablet PO (21:19)
[2022-01-29 02:30] VITALS: PULSE 58
[2022-01-29 03:00] VITALS: BP 110/55; PULSE 67; RESP 20; TEMP 36.4; O2SAT 93
[2022-01-29 06:06] LABS: Absolute Lymphocyte Count 3.29 X10^3/uL (0.83-4.51); Absolute Neutrophil Count 9.4 X10^3/uL (2.0-7.7); Basophil# 0.05 X10^3/uL; Basophil% 0.4 % (0-1); Eosinophil# 0.15 X10^3/uL; Eosinophils% 1.1 % (0-5); Hematocrit 44.3 % (40-54); Hemoglobin 14.6 g/dL (13.0-16.5); Lymphocyte # 3.29 X10^3/ul (0.83-4.51); Lymphocyte % 23.7 % (19-41); Mean Corpuscular Hgb 29.4 pg (27.0-32.0); Mean Corpuscular Volume 89.1 fL (80-94); Mean Platelet Vol. 10.2 fl (6.2-12.0); Monocyte# 0.96 X10^3/uL; Monocyte% 6.9 % (0-10); NRBC Flagged by Analyzer 0 % (0-5); Neutrophil # 9.37 X10^3/uL (2.7-7.7); Neutrophil % 67.3 % (47-70); Platelet Count 273 K/mm3 (150-450); RBC Distribution Width CV 13.5 % (11.6-14.6); RBC Distribution Width SD 43.8 fl (35.1-43.9); Red Blood Count 4.97 M/mm3 (4.6-6.2); White Blood Count 13.9 K/mm3 (4.4-11.0)
[2022-01-29 06:36] LABS: ALB/GLOB Ratio 0.7 RATIO (0.9-2.4); AST(SGOT) 35 U/L (15-37); Alanine Aminotransfer ALT/SGPT 50 U/L (16-61); Albumin, Serum 2.7 g/dL (3.2-5.0); Alkaline Phosphatase 84 U/L (45-117); Anion Gap 6 (5-15); BUN 13 mg/dL (7-18); BUN/Creat Ratio 11.8 RATIO (10-20); Calcium,Total 8.6 mg/dL (8.5-10.1); Chloride 108 mmol/L (98-107); Cholesterol 199 mg/dL (200); EST Glomerular Filtration Rate 73 mL/min (>60); Est Glom Filt Rate - Afr Amer 89 mL/min (>60); Estimated Creatinine Clearance 74.09 ml/min; Globulin 3.7 g/dL (2.2-4.2); Glucose 95 mg/dL (74-106); High Density Lipoprotein 29 mg/dL; Potassium 4.1 mmol/L (3.5-5.1); Protein, Total 6.4 g/dL (6.4-8.2); Sodium Level 140 mmol/L (136-145); Triglycerides 219 mg/dL; Very Low Density Lipoprotein 44 mg/dL (5-40)
[2022-01-29 06:39] VITALS: BP 105/73; PULSE 70; RESP 20; TEMP 36.3; O2SAT 96
[2022-01-29 07:18] VITALS: PULSE 62
[2022-01-29 07:51] VITALS: O2SAT 96
--- NOTE | 2022-01-29 07:57 | PN.HOSP_ITS ---
Objective Data Objective Data Vital Signs: Vital Signs Temp Pulse Resp BP Pulse Ox O2 Del Method 97.4 F L 70 20 H 105/73 96 Room Air 01/29/22 06:39 01/29/22 06:39 01/29/22 06:39 01/29/22 06:39 01/29/22 07:51 01/29/22 07:51 Oxygen Delivery Method Room Air Weight: 79 kg Body Mass Index (BMI) 25.4 Intake & Output: Intake and Output for Last 24 Hours 01/27/22 01/28/22 01/29/22 23:59 23:59 23:59 Intake Total 158.87 / 158.87 1200 / 1200 Balance 158.87 / 158.87 1200 / 1200 Lab / Micro Data Result Diagrams: 01/29/22 05:20 01/29/22 05:20 Labs: Laboratory Results - last 24 hr 01/28/22 10:09: WBC 17.2 H, RBC 5.61, Hgb 16.2, Hct 50.8, MCV 90.6, MCH 28.9, MCHC 31.9 L, RDW Std Deviation 44.0 H, RDW Coeff of Benjamín 13.2, Plt Count 295, MPV 10.9, Immature Gran % (Auto) 0.600, Neut % (Auto) 71.7 H, Lymph % (Auto) 19.0, [place] % (Auto) 7.0, Eos % (Auto) 1.2, Baso % (Auto) 0.5, Absolute Neuts (auto) 12.3 H, Absolute Lymphs (auto) 3.27, Nucleated RBC % 0 01/28/22 10:09: Sodium 140, Potassium 3.8, Chloride 103, Carbon Dioxide 30.0, Anion Gap 7, BUN 12, Creatinine 1.17, Estim Creat Clear Calc 69.66, Est GFR (MDRD) Af Amer 83, Est GFR (MDRD) Non-Af 68, BUN/Creatinine Ratio 10.3, Glucose 137 H, Calcium 9.6, Troponin I High Sens 188 H* 01/28/22 10:09: PT 12.4, INR 1.0, APTT 31.0 01/28/22 10:09: Hemoglobin A1c 5.9 H 01/28/22 13:01: Troponin I High Sens 1985 H* 01/29/22 05:20: Sodium 140, Potassium 4.1, Chloride 108 H, Carbon Dioxide 26.0, Anion Gap 6, BUN 13, Creatinine 1.10, Estim Creat Clear Calc 74.09, Est GFR (MDRD) Af Amer 89, Est GFR (MDRD) Non-Af 73, BUN/Creatinine Ratio 11.8, Glucose 95, Calcium 8.6, Total Bilirubin 0.30, AST 35, ALT 50, Alkaline Phosphatase 84, Total Protein 6.4, Albumin 2.7 L, Globulin 3.7, Albumin/Globulin Ratio 0.7 L, Triglycerides 219 H, Cholesterol 199, LDL Cholesterol 126, VLDL Cholesterol 44 H , HDL Cholesterol 29 L 01/29/22 05:20: WBC 13.9 H, RBC 4.97, Hgb 14.6, Hct 44.3, MCV 89.1, MCH 29.4, MCHC 33.0, RDW Std Deviation 43.8, RDW Coeff of Benjamín 13.5, Plt Count 273, MPV 10.2, Immature Gran % (Auto) 0.600, Neut % (Auto) 67.3, Lymph % (Auto) 23.7, [place] % (Auto) 6.9, Eos % (Auto) 1.1, Baso % (Auto) 0.4, Absolute Neuts (auto) 9.4 H, Absolute Lymphs (auto) 3.29, Nucleated RBC % 0 01/29/22 05:20: Sodium Cancelled, Potassium Cancelled, Chloride Cancelled, Carbon Dioxide Cancelled, Anion Gap Cancelled, BUN Cancelled, Creatinine Cancelled, Est GFR (MDRD) Af Amer Cancelled, Est GFR (MDRD) Non-Af Cancelled, BUN/Creatinine Ratio Cancelled, Glucose Cancelled, Calcium Cancelled, Total Bilirubin Cancelled, AST Cancelled, ALT Cancelled, Alkaline Phosphatase Cancelled, Total Protein Cancelled, Albumin Cancelled, Globulin Cancelled, Albumin/Globulin Ratio Cancelled Radiography Diagnostic Testing: Radiology Impression Chest X-Ray 01/28/22 10:53 IMPRESSION: Hyperinflation. The lungs are clear. Electronically Signed: Darrel Castañeda MD at 11:03 EDT ,
[2022-01-29 09:04] VITALS: BP 130/75; PULSE 62; RESP 14; TEMP 36.9; O2SAT 98
[2022-01-29] MEDS: Ascorbic Acid 500 MG Tablet PO (09:07)
[2022-01-29] MEDS: Aspirin 81 MG TAB.CHEW PO (09:07)
[2022-01-29] MEDS: Clopidogrel Bisulfate 75 MG Tablet PO (09:08)
[2022-01-29] MEDS: Carvedilol 3.125 MG TABLET PO (09:08)
[2022-01-29] MEDS: Isosorbide Mononitrate 30 MG Tablet PO (09:09)
--- NOTE | 2022-01-29 10:20 | CASEMGMT ---
DORIE SHERWOOD Assessment: Face to Face with pt for initial transition planning/care coordination assessment. DORIE SHERWOOD introduced self and role at [facility], pt voices understanding and consents to assessment. Pt is A/O x4 and answers all questions appropriately at this time. Pt present in room. Care providers, pharmacy, and demographics verified/updated. Admitting Dx: Acute STEMI PCP:Pt does not have a PCP. States he was given a pamphlet of local healthcare directory but pt does not have it. Provided pt with another one. Specialists:Pt denies. Preferred Pharmacy: [facility] Insurance: [employer] Prescription Benefit: yes LW/HPOA: Pt denies having a LW/DPOA and denies need for info regarding AD. LNOK: Dayna Garcia, Living Arrangements: Pt lives with in a single story house with 3 steps to enter with a rail. Pt reports he is I in ADL's and denies concerns at home. Transportation: Pt drives self and denies concerns with transportation. DME/HHC/SNF: Pt does not use DME but has access to it. Pt denies hx of HHC or SNF stays. Pt states no concerns with going home at time of dc. Pt states no further concerns/needs. CM to follow. Advised pt to ask CM if any further question/concerns/needs arise, voices understanding. Pt Goal: Home Plan: Home
[2022-01-29 11:04] LABS: Troponin-I HS 2885 pg/mL (3.0-78.0)
--- NOTE | 2022-01-29 11:14 | DCINST_ITS ---
Discharge Instructions Diet Discharge Diet: Low fat / Low cholesterol and 2000 mg Sodium Diet Activity Discharge Activity: Return to Normal Activity Follow Up Care Test Results: Test results from this visit will be discussed in further detail at your follow- up appointment, if applicable. Discharge Plan Admission Admit Date/Time: 01/28/22 13:56 Primary Reason for Your Visit: Acute NSTEMI Attending Provider: Lissett Parsons Primary Care Provider: Care Physician,No Primary Consulting Providers: Oswaldo Quintana Instructions Additional Instructions / Restrictions: You are strongly advised to quit smoking. Take note of your medications. Follow a low-salt, low-fat diet Follow-up with your primary care doctor within 1 to 2 weeks. Discharge Orders/Prescriptions Prescriptions: New atorvastatin 40 mg Tablet 40 mg PO QHS 30 Days Qty: 30 0RF isosorbide mononitrate 30 mg Tablet Extended Release 24 Hr 30 mg PO DAILY 30 Days Qty: 30 0RF clopidogrel 75 mg Tablet 75 mg PO DAILY 30 Days Qty: 30 0RF carvedilol 3.125 mg Tablet 3.125 mg PO BID 30 Days Qty: 60 0RF nicotine 21 mg/24 hr Patch 24 Hour 21 mg transdermal DAILY 28 Days Qty: 28 0RF Continued aspirin 81 MG tablet,chewable 81 mg PO DAILY Label Comments: heart ascorbic acid (vitamin C) [Vitamin C] 500 mg Tablet 500 mg PO DAILY Referrals / Follow Up: Oswaldo Quintana MD [Med Staff - Active Staff] - Within 2 Weeks Care Physician,No Primary [Primary Care Provider] - Within 1 Week Disposition Disposition (needs filled in before D/C Order can be placed): Home, Self Care
--- NOTE | 2022-01-29 11:31 | DS.PCM_ITS ---
Providers Date of Admission: 01/28/22 Date of Discharge: 01/29/22 Primary Care Physician: Catia Primary Care Phys Consultations 01/28/22 17:45 Consult: Cardiology Routine Consulting Provider: Oswaldo Quintana Reason for Consult: Acute NSTEMI EMERGENT Consult: No MD Notified: Yes Date Notified: 01/28/22 Time Notified: 14:00 Method of Notification: notified in ED Reason For Visit: ACUTE NSTEMI Diagnosis Discharge Diagnosis (1) Non-STEMI (non-ST elevated myocardial infarction): Status: Acute Code(s): I21.4 - Non-ST elevation (NSTEMI) myocardial infarction (2) Hyperlipidemia: Status: Acute Code(s): E78.5 - Hyperlipidemia, unspecified (3) Nicotine dependence: Status: Acute Code(s): F17.200 - Nicotine dependence, unspecified, uncomplicated Medications at Discharge Home Medications aspirin 81 mg chewable tablet 81 mg PO DAILY [facility] 04/12/18 ascorbic acid (vitamin C) 500 mg tablet (Vitamin C) 500 mg PO DAILY SUPPLEMENT 01/28/22 atorvastatin 40 mg tablet 40 mg PO QHS 30 days #30 tabs 01/29/22 carvedilol 3.125 mg tablet 3.125 mg PO BID 30 days #60 tabs 01/29/22 clopidogrel 75 mg tablet 75 mg PO DAILY 30 days #30 tabs 01/29/22 isosorbide mononitrate 30 mg tablet,extended release 24 hr 30 mg PO DAILY 30 days #30 tabs 01/29/22 Hospital Course Operations None Procedures 2-D Echocardiogram and Cardiac catheterization Summary of Care Provided Minutes Spent on Discharge: 35 Hospital Course: 56-year-old male, chronic smoker who presented with chest pain that had been ongoing for weeks. Chest pain initially starts of as a substernal crushing pain that radiates to his left upper extremity and last for few minutes. It is not associated with diaphoresis palpitation orthopnea or PND. Patient woke up on the day of admission with chest discomfort that lasted more than 1 hour and got him concerned. In the emergency room, his vitals were stable. He had elevated WBC count which was felt to be reactive. His admitted troponin was 188, repeat troponin was 1985. EKG showed no acute ST-T change. Cardiology was consulted from the ED, patient underwent cardiac catheter on 01/28/22. Findings showed 90% mid diagonal 1 stenosis, 80% mid RCA stenosis. There was successful JESSY of the proximal and mid diagonal 1. Patient was continued on aspirin, Plavix. He would return to cardiology later for JESSY of the RCA. On the day of discharge, patient was seen and examined. Denied any new compla ints. He was strongly advised to stop smoking. He was discharged on aspirin, Plavix, statin, Coreg and Imdur. 2D echo showed EF of 60%. He will follow-up with cardiology within 2 weeks. Follow-up with cardiac rehab. Patient appears to have stabilized faster than anticipated for him -less than for 2 midnights stays. He was discharged home. Physical Exam Narrative Physical exam: General: Alert, Oriented x3, Cooperative, No apparent distress HEENT: Atraumatic Oral: Moist Mucosa Neck: Supple Lungs: Diminished to auscultation Cardiovascular: HS I+II, regular, no murmurs Abdomen: Bowel Sounds Present, Soft, Non Tender Extremities: No edema Skin: No rashes, No breakdown Neurological: Grossly intact Psych/Mental Status: Appropriate Weight / BMI Weight Weight: 79 kg Body Mass Index (BMI) 25.4 ABG / Lab / Microbiology Data Result Diagrams: 01/29/22 05:20 01/29/22 05:20 Laboratory: Laboratory Results - last 24 hr 01/28/22 10:09: PT 12.4, INR 1.0, APTT 31.0 01/28/22 10:09: Hemoglobin A1c 5.9 H 01/28/22 13:01: Troponin I High Sens 1985 H* 01/29/22 05:20: Sodium 140, Potassium 4.1, Chloride 108 H, Carbon Dioxide 26.0, Anion Gap 6, BUN 13, Creatinine 1.10, Estim Creat Clear Calc 74.09, Est GFR (MDRD) Af Amer 89, Est GFR (MDRD) Non-Af 73, BUN/Creatinine Ratio 11.8, Glucose 95, Calcium 8.6, Total Bilirubin 0.30, AST 35, ALT 50, Alkaline Phosphatase 84, Total Protein 6.4, Albumin 2.7 L, Globulin 3.7, Albumin/Globulin Ratio 0.7 L, Triglycerides 219 H, Cholesterol 199, LDL Cholesterol 126, VLDL Cholesterol 44 H , HDL Cholesterol 29 L 01/29/22 05:20: WBC 13.9 H, RBC 4.97, Hgb 14.6, Hct 44.3, MCV 89.1, MCH 29.4, MCHC 33.0, RDW Std Deviation 43.8, RDW Coeff of Benjamín 13.5, Plt Count 273, MPV 10.2, Immature Gran % (Auto) 0.600, Neut % (Auto) 67.3, Lymph % (Auto) 23.7, [place] % (Auto) 6.9, Eos % (Auto) 1.1, Baso % (Auto) 0.4, Absolute Neuts (auto) 9.4 H, Absolute Lymphs (auto) 3.29, Nucleated RBC % 0 01/29/22 05:20: Sodium Cancelled, Potassium Cancelled, Chloride Cancelled, Carbon Dioxide Cancelled, Anion Gap Cancelled, BUN Cancelled, Creatinine Cancelled, Est GFR (MDRD) Af Amer Cancelled, Est GFR (MDRD) Non-Af Cancelled, BUN/Creatinine Ratio Cancelled, Glucose Cancelled, Calcium Cancelled, Total Bilirubin Cancelled, AST Cancelled, ALT Cancelled, Alkaline Phosphatase Cancelled, Troponin I High Sens 2885 H*, Total Protein Cancelled, Albumin Cancelled, Globulin Cancelled, Albumin/Globulin Ratio Cancelled Radiography Diagnostic Testing: Radiology Impression Echocardiogram 01/28/22 17:45 Interpretation Summary The left ventricular ejection fraction is 65 %. Ordering Physician: Lissett Parsons Performed By: Mimi Rodriguez, BRANDI D/C Instructions Discharge Diet: Low fat / Low cholesterol and 2000 mg Sodium Diet Meaningful Use Info Meaningful Use Diagnoses (Choose all that apply): AMI AMI/Post PCI/Angioplasty Aspirin given w/in 24hrs of arrival?: Yes ASA at discharge?: Yes Antiplatelet Therapy at Discharge:: Yes Statins at discharge?: Yes Elmo/ARB at discharge?: Yes Beta Carolyn at discharge?: Yes Done w/ Acute ME measure.: Yes Documented LVEF (%): 60 Discharge Plan Admission Admit Date/Time: 01/28/22 13:56 Primary Reason for Your Visit: Acute NSTEMI Attending Provider: Lissett Parsons Primary Care Provider: Care Physician,No Primary Consulting Providers: Oswaldo Quintana Instructions Additional Instructions / Restrictions: You are strongly advised to quit smoking. Take note of your medications. Follow a low-salt, low-fat diet Follow-up with your primary care doctor within 1 to 2 weeks. Discharge Orders/Prescriptions Prescriptions: New atorvastatin 40 mg Tablet 40 mg PO QHS 30 Days Qty: 30 0RF isosorbide mononitrate 30 mg Tablet Extended Release 24 Hr 30 mg PO DAILY 30 Days Qty: 30 0RF clopidogrel 75 mg Tablet 75 mg PO DAILY 30 Days Qty: 30 0RF carvedilol 3.125 mg Tablet 3.125 mg PO BID 30 Days Qty: 60 0RF Continued aspirin 81 MG tablet,chewable 81 mg PO DAILY Label Comments: heart ascorbic acid (vitamin C) [Vitamin C] 500 mg Tablet 500 mg PO DAILY Referrals / Follow Up: Oswaldo Quintana MD [Med Staff - Active Staff] - Within 2 Weeks Care Physician,No Primary [Primary Care Provider] - Within 1 Week Disposition Disposition (needs filled in before D/C Order can be placed): Home, Self Care Charges/Coding Visit Charges Inpatient E&M: 11585 Disch Hosp
--- NOTE | 2022-01-29 12:19 | PCM.PN.CARD ---
Subjective Subjective Doing well. Denies any chest pains. Ambulating. Objective Data Vital Signs: Vital Signs Temp Pulse Resp BP Pulse Ox O2 Del Method 98.4 F 62 14 130/75 H 98 Room Air 01/29/22 09:04 01/29/22 09:04 01/29/22 09:04 01/29/22 09:04 01/29/22 09:04 01/29/22 09:04 Oxygen Delivery Method Room Air Weight: 174 lb 2.643 oz Body Mass Index (BMI) 25.4 Intake & Output: Intake and Output for Last 24 Hours 01/27/22 01/28/22 01/29/22 23:59 23:59 23:59 Intake Total 158.87 / 158.87 1200 / 1200 Balance 158.87 / 158.87 1200 / 1200 Lab / Micro Data Result Diagrams: 01/29/22 05:20 01/29/22 05:20 Labs: Laboratory Results - last 24 hr 01/28/22 10:09: PT 12.4, INR 1.0, APTT 31.0 01/28/22 10:09: Hemoglobin A1c 5.9 H 01/28/22 13:01: Troponin I High Sens 1985 H* 01/29/22 05:20: Sodium 140, Potassium 4.1, Chloride 108 H, Carbon Dioxide 26.0, Anion Gap 6, BUN 13, Creatinine 1.10, Estim Creat Clear Calc 74.09, Est GFR (MDRD) Af Amer 89, Est GFR (MDRD) Non-Af 73, BUN/Creatinine Ratio 11.8, Glucose 95, Calcium 8.6, Total Bilirubin 0.30, AST 35, ALT 50, Alkaline Phosphatase 84, Total Protein 6.4, Albumin 2.7 L, Globulin 3.7, Albumin/Globulin Ratio 0.7 L, Triglycerides 219 H, Cholesterol 199, LDL Cholesterol 126, VLDL Cholesterol 44 H, HDL Cholesterol 29 L 01/29/22 05:20: WBC 13.9 H, RBC 4.97, Hgb 14.6, Hct 44.3, MCV 89.1, MCH 29.4, MCHC 33.0, RDW Std Deviation 43.8, RDW Coeff of Benjamín 13.5, Plt Count 273, MPV 10.2, Immature Gran % (Auto) 0.600, Neut % (Auto) 67.3, Lymph % (Auto) 23.7, [place] % (Auto) 6.9, Eos % (Auto) 1.1, Baso % (Auto) 0.4, Absolute Neuts (auto) 9.4 H, Absolute Lymphs (auto) 3.29, Nucleated RBC % 0 01/29/22 05:20: Sodium Cancelled, Potassium Cancelled, Chloride Cancelled, Carbon Dioxide Cancelled, Anion Gap Cancelled, BUN Cancelled, Creatinine Cancelled, Est GFR (MDRD) Af Amer Cancelled, Est GFR (MDRD) Non-Af Cancelled, BUN/Creatinine Ratio Cancelled, Glucose Cancelled, Calcium Cancelled, Total Bilirubin Cancelled, AST Cancelled, ALT Cancelled, Alkaline Phosphatase Cancelled, Troponin I High Sens 2885 H*, Total Protein Cancelled, Albumin Cancelled, Globulin Cancelled, Albumin/Globulin Ratio Cancelled Rhythm Strip Rhythm Strip: Sinus Rhythm Cardiology Labs/Tests 01/28/22 10:09: PT 12.4, INR 1.0, APTT 31.0 01/28/22 10:09: Hemoglobin A1c 5.9 H 01/29/22 05:20: Sodium 140, Potassium 4.1, Chloride 108 H, Carbon Dioxide 26.0, Anion Gap 6, BUN 13, Creatinine 1.10, Est GFR (MDRD) Af Amer 89, Est GFR (MDRD) Non-Af 73, BUN/Creatinine Ratio 11.8, Glucose 95, Calcium 8.6, Total Bilirubin 0.30, Triglycerides 219 H, Cholesterol 199, LDL Cholesterol 126, VLDL Cholesterol 44 H, HDL Cholesterol 29 L 01/29/22 05:20: WBC 13.9 H, RBC 4.97, Hgb 14.6, Hct 44.3, MCV 89.1, MCH 29.4, MCHC 33.0, Plt Count 273, MPV 10.2, Immature Gran % (Auto) 0.600, Neut % (Auto) 67.3, Lymph % (Auto) 23.7, [place] % (Auto) 6.9, Eos % (Auto) 1.1, Baso % (Auto) 0.4, Absolute Neuts (auto) 9.4 H, Nucleated RBC % 0 01/29/22 05:20: Sodium Cancelled, Potassium Cancelled, Chloride Cancelled, Carbon Dioxide Cancelled, Anion Gap Cancelled, BUN Cancelled, Creatinine Cancelled, Est GFR (MDRD) Af Amer Cancelled, Est GFR (MDRD) Non-Af Cancelled, BUN/Creatinine Ratio Cancelled, Glucose Cancelled, Calcium Cancelled, Total Bilirubin Cancelled Rhythm: EKG: ECHO: Normal LV systolic function. Stress Test: Cardiac Cath: PCI: CT Surgery: Holter monitor: EPS: PPM: CXR: Chest CT Scan: Radiography Diagnostic Testing: Radiology Impression Echocardiogram 01/28/22 17:45 Interpretation Summary The left ventricular ejection fraction is 65 %. Ordering Physician: Lissett Parsons Performed By: Mimi Rodriguez RDCS Physical Exam Narrative Heart sounds 1 and 2 are normal. No murmurs or rubs are noted. Chest clear to auscultation bilaterally. Abdomen soft. Bowel sounds positive. Alert oriented x3. No ankle edema. Right radial pulse 2+ Assessment & Plan Assessment/Plan (1) Non-STEMI (non-ST elevated myocardial infarction): PLAN: Status post drug-eluting stent to the first diagonal branch. Residual lesion in the right coronary artery. For staged PCI. Continue aspirin. Continue Plavix. Risk factor modification. (2) Hyperlipidemia: PLAN: Continue atorvastatin. (3) Nicotine dependence: PLAN: Counseled to quit.
== END 2022-01-29 12:02 | disposition home or self-care (01) | DRG 247 ==
LOC: ED 13:58 → PCU 14:48
PROVIDERS: Internal Medicine Cardiovascular Disease; Admitting Provider Internal Medicine; Emergency Provider Emergency Medicine; Visit Provider Internal Medicine
DX: I21.4 Non-ST elevation (NSTEMI) myocardial infarction (principal); E78.5 Hyperlipidemia, unspecified; I10 Essential (primary) hypertension; F17.210 Nicotine dependence, cigarettes, uncomplicated; Z71.6 Tobacco abuse counseling; Z79.02 Long term (current) use of antithrombotics/antiplatelets; Z79.82 Long term (current) use of aspirin; Z79.899 Other long term (current) drug therapy
CPT/HCPCS: 36415; 71045; 80048; 80053; 80061; 83036; 84484; 85025; 85610; 85730; 92928; 93005; 93306; 93458; 99152; 99153; 99285; 99406; J7030; J7040; Q9957; Q9967; A4216; C1725; C1769; C1874; C1887; C1894; C8929; C9600; J0583

== ENCOUNTER 2022-03-02 06:48 | Day surgery (SDC) | payer OTHER, SELFPAY ==
[2022-02-28 09:29] VITALS: BMI 25.2
[2022-03-02] VITALS (9 sets, daily range): BP systolic 115–132; BP diastolic 56–76; PULSE 55–67; RESP 16–20; TEMP 36; O2SAT 97–99
--- NOTE | 2022-03-02 11:15 | EKG12_ITS ---
Test Reason : post pci Blood Pressure : / mmHG Vent. Rate : 057 BPM Atrial Rate : 057 BPM P-R Int : 152 ms QRS Dur : 082 ms QT Int : 404 ms P-R-T Axes : 042 065 085 degrees QTc Int : 393 ms Sinus bradycardia Nonspecific T wave abnormality Abnormal ECG When compared with ECG of 02-MAR-2022 11:16, No significant change was found Confirmed by AFSHAN JAMES, WILLI ([id number]), story editor ANDREA MOONEY ([id number]) on 03/08/2022 1:18:06 PM Referred By: Oswaldo Quintana Confirmed By:WILLI CAVANAUGH MD
[2022-03-02] MEDS: 0.9% Normal Saline 1,000 ML 150 ML IV (12:51)
--- NOTE | 2022-03-02 12:53 | CRPHASE1_ITS ---
Patient Communication PHII Cardiac Rehab Discussed with Patient:: Yes Guide to Cardiac Rehab Given to Patient:: Yes Cardiac Rehab Facility Choice List Given to Patient:: Yes Choice Program [facility] CR PHII:: Communication Given to CR Choice Program Other:: Communication Given to CR PCP:: Oswaldo Quintana Phase II Cardiac Rehab:: Yes Sessions:: 36 sessions - 3 days/wk, 12 weeks - staged procedure 2 of 2 Cardiac Rehabilitation Info Cardiac Rehabilitation Program Information: Cardiac Rehabilitation is important for patients like you who are recovering from a heart problem. Cardiac rehabilitation programs are recognized as integral to the continued care of the patient with coronary heart disease. The cardiac rehabilitation program is designed to optimize a patient's physical, psychological, and social functioning. Health cardiac care nurse work in cardiac rehabilitation programs and assist you with getting the treatments you need to get stronger and healthier - like exercise, healthy eating habits, and medications. Cardiac rehabilitation has been show to help people with heart problems live longer and have better life enjoyment than people who do not go to cardiac rehabilitation. Please contact the Cardiac Rehabilitation Program at [facility] at in two weeks if you have not heard from them.
--- NOTE | 2022-03-02 12:54 | CRPH1.INSTRU ---
General Education CAD and cardiac anatomy and function:: Patient communicates acknowledgment, Family communicates acknowledgment Explanation of diagnoses and procedures:: Patient communicates acknowledgment, Family communicates acknowledgment Sign/Symptoms of FL:: Patient communicates acknowledgment, Family communicates acknowledgment Antiplatelet therapy: Patient communicates acknowledgment, Family communicates acknowledgment Smoking Recommendations Include:: Smoking cessation strategies/Smoking packet, Participation in a smoking cessation program, Previous smoker; encourage continued cessation Nicotine/Smoking Response Code:: Patient communicates acknowledgment, Family communicates acknowledgment Dyslipidemia Patient Dyslipidemia Risk Factors Are:: Total Cholesterol, Triglycerides, HDL, LDL Recommendations Include:: Lipid profile provided, Reviewed NCEP/ATP guidelines, Therapeutic Lifestyle Change dietary guidelines Dyslipidemia Response Code:: Patient communicates acknowledgment Overweight/Obesity Patient Overweight/Obesity Risk Factors Are:: BMI Normal [18-25 & < 65 years old] Recommendations Include:: Weight loss of 5-10%, Reduced calorie diet, Exercise 5-7 times/week Overweight/Obesity:: Patient communicates acknowledgment, Family communicates acknowledgment Hypertension Recommendations Include:: Maintain BP <130/85, DASH dietary guidelines, Decrease/maintain normal body weight, Moderation of ETOH Hypertension:: Patient communicates acknowledgment Heart Disease Patient Heart Disease Risk Factors Are:: Previous cardiac event Recommendations Include:: Educated family members of their risk, Educated family members of importance of prevention of heart disease Heart Disease Response Code:: Patient communicates acknowledgment, Family communicates acknowledgment Diabetes Patient Diabetes Risk Factors Are:: No documented hx of diabetes Sedentary Patient Sedentary Risk Factors Are:: Lack of regular exercise Recommendations Include:: Aerobic exercise 5-7 times/week for 20-30 minutes continuously, Benefits of regular exercise, Discussed home walking program, Monitored Outpatient Cardiac Rehab Sedentary Response Code:: Patient communicates acknowledgment Stress Recommendations Include:: Identification of stressors, and assessment of coping skills, Stress management techniques Stress Response Code:: Patient communicates acknowledgment
--- NOTE | 2022-03-07 11:59 | CL.I_ITS ---
Patient Name: DAYAMI MONTESINOS Study Date: 03/02/2022 Performing: Oswaldo Quintana MD Ht: 69 inches 175.26 cm : 1965 Wt: 171.2 lbs 77.56 kg Age: 56 Gender: male BSA: 1.93 PROCEDURE(S) PERFORMED IC12-(59374/[id number])JESSY W/WO PTCA, SINGLE CORONARY ARTERY CLINICAL PROFILE AND CO-MORBIDITIES Indications: Staged PCI Heart Failure: None CONCLUSIONS Successful JESSY Mid RCA using Orsirio 3.0x15 mm RECOMMENDATIONS ASA Indefinitley Plavix for at least 12 months DESCRIPTION OF PROCEDURE The patient arrived to the procedure lab. The risks and benefits of the procedure as well as a full description of our services here and current unavailability of surgical backup were fully explained to the patient and/or their significant other prior to the catheterization. The Timeout was completed, verifying the correct patient and procedure. The patient's procedural site was prepped and draped in the usual fashion. Local anesthetic was given subcutaneously to right radial region with Lidocaine 2%. Using a modified Seldinger technique, arterial access was obtained via the right radial artery, a 6Fr sheath was inserted.. Right Coronary Artery selective angiography was then performed in multiple views using a 6 Fr. JR 4 catheter jr 4 Guide catheter was inserted and engaged into the RCA. runthrough Guide wire was advanced to the RCA. orsiro 3.0 x 15 Drug Eluting stent was advanced across the lesion in the right coronary, mid. Angiogram performed post stent deployment. nc emerge 3.00 x 12 Balloon catheter was inserted post stent. Angiogram performed post balloon dilatation. Angiogram performed post balloon dilatation. The arterial sheath was pulled and a TR Band was applied for hemostasis INTERVENTION INFORMATION LESION SITE: RCA (Mid) Lesion Complexity: Non-High/Non-C, lesion length: 13 mm Pre Stenosis: 80 % Pre intervention MAURIZIO flow: 3 PROCEDURE: Drug Eluting Stent with post dilatation Post Stenosis: 0 % Post intervention MAURIZIO flow: 3 Lesion Devices: Terumo .014 Runthrough Extra Floppy 180cm straight Cordis 6 Fr JR4 100cm Guide Catheter Biotronik Orsiro Ladd MR JESSY 3.0x15 Jero Sci NC EMERGE MR 3.00x12 BALLOON COMPLICATIONS No Complications PROCEDURE MEDICATIONS Versed 2 mg IV Fentanyl 50 mcg IV Oxygen: 2 L/min via nasal cannula Heparin given IA 03/02/2022 10:51:54 Heparin 5000 unit(s) IV 03/02/2022 10:52:23 Nitro 50 mcg IC 03/02/2022 11:03:40 Verapamil 2.5mg, Ntg 200mcgs, 2000 units of Heparin given IA 03/02/2022 10:51:54 SUMMARY OF HEMODYNAMIC DATA Time AIR REST ECG 07:50:47 AO 87/43 (61) SA 10:54:36 Signed By Oswaldo Quintana MD On 03/07/2022 11:58:07 Oswaldo Quintana MD
== END 2022-03-02 17:39 | disposition home or self-care (01) ==
LOC: CLSP 06:50 → PCU 15:10
PROVIDERS: PCP Internal Medicine; Referring Provider Internal Medicine Cardiovascular Disease; Visit Provider Internal Medicine Cardiovascular Disease
DX: I25.10 Atherosclerotic heart disease of native coronary artery without angina pectoris (principal); I10 Essential (primary) hypertension; I25.2 Old myocardial infarction; E78.5 Hyperlipidemia, unspecified; F17.210 Nicotine dependence, cigarettes, uncomplicated; Z95.5 Presence of coronary angioplasty implant and graft; Z79.02 Long term (current) use of antithrombotics/antiplatelets; Z79.82 Long term (current) use of aspirin; Z79.899 Other long term (current) drug therapy
CPT/HCPCS: 92928; 93005; 99152; 99153; C1874; J7030; J7040; Q9967; C1725; C1769; C1887; C1894; C9600

== ENCOUNTER → 2022-03-11 | Outpatient (CLI) | payer OTHER, SELFPAY ==
--- NOTE | 2022-03-11 14:51 | ART_ITS ---
Reason For Study: gluteal and leg claudication Procedure A bilateral lower extremity continuous wave Doppler with analog waveform analysis and ankle brachial indexes. Left Segmental Pressures Left brachial= 121mmHg. Left posterior tibial artery = 141mmHg. The left posterior tibial artery waveforms are monophasic. The left dorsalis pedis waveforms are monophasic. LT DPA unable to obtain waveform, however, could hear monophasic arterial flow. Right Segmental Pressures Right brachial= 121mmHg. Right posterior tibial artery = 72mmHg. Right dorsalis pedis artery = 77mmHg. The right posterior tibial artery waveforms are monophasic. The right dorsalis pedis waveforms are monophasic. Indices The right resting ankle brachial index is 0.64. The right ankle brachial index by the posterior tibial artery is 0.60. The right ankle brachial index by the dorsalis pedis is 0.64. The left resting ankle brachial index is 1.17. The left ankle brachial index by the posterior tibial artery is 1.17. The left ankle brachial index by the dorsalis pedis is unable to obtain.. VL/Ankle Brachial Index Interpretation Summary Abnormal right DP and PT ankle brachial indexes of 0.64 and 0.6 with monophasic doppler waveforms Normal left PT index of 1.17 but with monophasic waveform, absent left DP press ure with monophasic waveform. Findings are abnormal. 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
== END | disposition home or self-care (01) ==
LOC: CVS 14:50
PROVIDERS: PCP Internal Medicine; Referring Provider Internal Medicine; Visit Provider Internal Medicine
DX: I73.9 Peripheral vascular disease, unspecified (principal); F17.200 Nicotine dependence, unspecified, uncomplicated; E78.5 Hyperlipidemia, unspecified; I25.10 Atherosclerotic heart disease of native coronary artery without angina pectoris
CPT/HCPCS: 93922

== ENCOUNTER → 2022-06-14 | Outpatient (CLI) | payer OTHER, SELFPAY ==
[2022-06-14 14:53] LABS: Absolute Lymphocyte Count 3.36 X10^3/uL (0.83-4.51); Absolute Neutrophil Count 8.3 X10^3/uL (2.0-7.7); Basophil# 0.08 X10^3/uL; Basophil% 0.6 % (0-1); Eosinophil# 0.28 X10^3/uL; Eosinophils% 2.1 % (0-5); Hemoglobin 15.4 g/dL (13.0-16.5); Lymphocyte # 3.36 X10^3/ul (0.83-4.51); Lymphocyte % 25.6 % (19-41); Mean Corp Hgb Conc 31.4 g/dL (32-36); Mean Corpuscular Hgb 28.5 pg (27.0-32.0); Mean Corpuscular Volume 90.6 fL (80-94); Mean Platelet Vol. 10.4 fl (6.2-12.0); Monocyte# 1.04 X10^3/uL; Monocyte% 7.9 % (0-10); NRBC Flagged by Analyzer 0 % (0-5); Neutrophil # 8.28 X10^3/uL (2.7-7.7); Neutrophil % 63.3 % (47-70); Platelet Count 263 K/mm3 (150-450); RBC Distribution Width CV 13.4 % (11.6-14.6); RBC Distribution Width SD 44.5 fl (35.1-43.9); Red Blood Count 5.41 M/mm3 (4.6-6.2); White Blood Count 13.1 K/mm3 (4.4-11.0)
[2022-06-14 15:40] LABS: Vitamin D,25 Hydroxy 8.8 ng/mL
[2022-06-14 15:49] LABS: ALB/GLOB Ratio 0.9 RATIO (0.9-2.4); AST(SGOT) 23 U/L (15-37); Alanine Aminotransfer ALT/SGPT 53 U/L (16-61); Albumin, Serum 3.6 g/dL (3.2-5.0); Alkaline Phosphatase 117 U/L (45-117); Anion Gap 7 (5-15); BUN 17 mg/dL (7-18); BUN/Creat Ratio 15.2 RATIO (10-20); Calcium,Total 9.2 mg/dL (8.5-10.1); Chloride 106 mmol/L (98-107); Creatinine, Serum 1.12 mg/dL (0.70-1.30); EST Glomerular Filtration Rate 72 mL/min (>60); Est Glom Filt Rate - Afr Amer 87 mL/min (>60); Free T3 2.7 pg/mL (2.18-3.98); Globulin 4.1 g/dL (2.2-4.2); Glucose 115 mg/dL (74-106); PSA,Total - Annual Screen 0.93 ng/mL (0.00-4.00); Potassium 3.8 mmol/L (3.5-5.1); Protein, Total 7.7 g/dL (6.4-8.2); Sodium Level 141 mmol/L (136-145); T4 Free Direct 0.94 ng/dL (0.76-1.46); Thyroid Stim Hormone (TSH) 1.63 uIU/mL (0.358-3.74)
== END | disposition home or self-care (01) ==
LOC: LAB 14:23
PROVIDERS: PCP Internal Medicine; Referring Provider Internal Medicine; Visit Provider Internal Medicine
DX: I25.10 Atherosclerotic heart disease of native coronary artery without angina pectoris (principal); I10 Essential (primary) hypertension; E78.5 Hyperlipidemia, unspecified; F17.200 Nicotine dependence, unspecified, uncomplicated; Z12.5 Encounter for screening for malignant neoplasm of prostate
CPT/HCPCS: 80053; 82306; 84153; 84439; 84443; 84481; 85025; G0103

== ENCOUNTER 2022-06-23 15:55 | Observation (INO) | payer OTHER, SELFPAY ==
[2022-06-14 15:02] LABS: Prothrombin Time (Protime)PT. 12.6 SECONDS (11.7-14.9)
[2022-06-14 15:03] LABS: Partial Thromboplast Time 29.3 Seconds (24.1-36.2)
[2022-06-22 09:13] VITALS: BMI 25.5
[2022-06-23] VITALS (10 sets, daily range): BP systolic 101–136; BP diastolic 65–86; PULSE 64–78; RESP 17–18; TEMP 36.6–36.7; O2SAT 95–98
--- NOTE | 2022-06-23 15:00 | OP.PCM_ITS ---
Problems Associated Problem List Diagnoses (1) Peripheral arterial disease: Operative Report Date of Procedure: 06/23/22 Procedures performed: 1. Abdominal aortography with bilateral distal runoff 2. Successful balloon angioplasty and stent placement to totally occluded right common iliac artery 3. Successful balloon angioplasty and stent placement to the right external iliac artery 4. Intravascular ultrasound right common iliac artery Indications: 1. Peripheral arterial disease with severe claudication Technique of procedure: Patient's bilateral groins were prepped and draped in the usual sterile fashion. A #6 [place] arterial sheath was introduced into the left common femoral artery after obtaining access via the modified Seldinger technique under ultrasound guidance. A pigtail catheter was then advanced over the J-wire and placed in the abdominal aorta. Abdominal aortography was performed. The catheter was then pulled back under fluoroscopic guidance to just above the iliac bifurcation. Another contrast bolus injection was made at this time bilateral d istal runoff was performed. After reviewing the angiographic films which showed total occlusion of the ostial right common iliac artery, it was decided to intervene. Subsequently ultrasound-guided access was obtained in the right common femoral artery and a #6 [place] Cord[place] sheath was placed. Multiple wires including 0.014 inch and 0.018 inch wires were tried to cross the chronic total occlusion in the right common iliac artery however the wire was kept going into a dissection plane. A quick intravascular ultrasound was performed using the [place] catheter. This showed the wire to be in the dissection plane. Ultrasound-guided reentry was therefore obtained back into the true lumen through the [place] device at the level of the aortic bifurcation. An [id number] balloon catheter was then advanced into the abdominal aorta and intraluminal position was confirmed using pressure waveforms and with a contrast injection. Subsequently balloon angioplasty was performed to the right common iliac artery and right external iliac artery using 4.0 mm balloon. Further balloon angioplasty was performed to the right common iliac artery using 5.0 mm balloon. A 0.14 inch wire was exchanged through the catheter 4.035 inch wire. A 7.0 x 39 mm covered stent was then deployed to the right common iliac artery. Distal to that the the common iliac and external iliac arteries were treated using 6.0 mm self-expanding stents. Final angiography was performed which showed excellent flow. The sheaths were withdrawn after deploying Mynx devices for bilateral groin hemostasis. Please note that adequate anticoagulation was achieved throughout the procedure using heparin boluses. ACT's were checked. Angiographic findings: 1. Abdominal aortography. The abdominal aorta showed mild luminal irregularities. Bilateral renal arteries are widely patent. 2. Right iliac angiography with distal runoff: The right common iliac artery was totally occluded across its ostium. The right external iliac artery was noted to be filling via collaterals. The right common femoral and superficial femoral arteries were free of any significant disease. Below the knee, the right anterior tibial artery is noted to be totally occluded in its mid part. The right common peroneal and posterior tibial arteries are patent throughout their course. 3. Left iliac angiography with distal runoff: The left common iliac artery is noted to be patent. There left external iliac and common femoral artery is noted to have moderate disease. The left superficial femoral artery is widely patent. The popliteal artery is also patent. Below the knee, two-vessel runoff with posterior tibial and peroneal arteries is noted. Conclusions: 1. Successful balloon angioplasty and stent placement to the right common iliac artery. 2. Successful balloon angioplasty and stent placement to the right external iliac artery. Recommendations: Postprocedure care would be directed towards the prevention of any ischemic hemorrhagic or vascular complications. Of utmost importance in the long-term care of this patient would be modification of his risk factors particularly smoking cessation.
[2022-06-23 15:10] LABS: ACT Activated Clotting Time 299 sec (74-137)
[2022-06-23 15:11] LABS: ACT Activated Clotting Time 269 sec (74-137)
--- NOTE | 2022-06-23 15:45 | DCINST_ITS ---
Discharge Instructions Diet Discharge Diet: Low fat / Low cholesterol Activity Discharge Activity: - (No heavy lifting bending or strenuous physical activity for 4 to 5 days) May resume sexual activity in: 1 week Follow Up Care Please Follow Up With: Oswaldo Quintana MD When: 2-4 weeks Test Results: Test results from this visit will be discussed in further detail at your follow- up appointment, if applicable. Discharge Plan Admission Attending Provider: Oswaldo Quintana Primary Care Provider: Faina Celeste Discharge Orders/Prescriptions Prescriptions: Continued aspirin 81 mg tablet,chewable 81 mg PO DAILY Qty: 100 3RF atorvastatin 40 mg tablet 40 mg PO QHS 30 Days Qty: 30 11RF clopidogrel 75 mg tablet 75 mg PO DAILY 30 Days Qty: 30 11RF nitroglycerin 0.4 mg tablet, sublingual 0.4 mg sublingual Q5-15M PRN (Reason: chest pain) Qty: 14 3RF Rx Instructions: do not exceed 3 doses per episode metoprolol tartrate 25 mg tablet 12.5 mg PO BID Qty: 90 3RF cholecalciferol (vitamin D3) 25 mcg (1,000 unit) capsule 25 mcg PO DAILY Referrals / Follow Up: Faina Celeste MD [Primary Care Provider] - Disposition Disposition (needs filled in before D/C Order can be placed): Home, Self Care
[2022-06-23] MEDS: 0.9% Normal Saline 1,000 ML 150 ML IV (16:13)
--- NOTE | 2022-06-23 16:18 | CRPHASE1 ---
Patient Communication Former Patient:: Phase I PHII Cardiac Rehab Discussed with Patient:: Yes Guide to Cardiac Rehab Given to Patient:: Yes Cardiac Rehab Facility Choice List Given to Patient:: Yes Choice Program [facility] CR PHII:: Communication Given to CR Service Car Operator:: Oswaldo Quintana Phase II Cardiac Rehab:: Yes Sessions:: 36 sessions - 3 days/wk, 12 weeks Cardiac Rehabilitation Info Cardiac Rehabilitation Program Information: Cardiac Rehab The cardiac rehab team at [facility] consists of highly skilled exercise physiologists, nurses, respiratory therapists and physicians working together with you. Our purpose is to help you have a full recovery and achieve the goals you set for yourself. Over the years many of our patients have returned to activities they assumed they would never do again! We can help restore your confidence and motivation to make lifestyle changes that can have a significant impact on your health and quality of life! We can help answer questions and concerns you may have about exercise, lifestyle, medications, diet, stress and anxiety which are common following a hospitalization. WE monitor ECG and vital signs during exercise and discuss your progress with you and report to your physician(s). Cardiac Rehab is proven to help reduce readmissions, improve functional capacity and lower recurrence of problems with your heart. Our Cardiac Rehab program is Certified by the [place] [employer]io-Vascular and Pulmonary [employer] (AACVPR) and Accredited by the [place] [employer] through our [facility]. You can contact us at . We invite you to call us with your questions or to get started in our program. If you have other questions or concerns be sure to ask your physician/provider during your follow-up visit. WE look forward to seeing you!
--- NOTE | 2022-06-23 16:19 | CRPH1.INSTRU ---
General Education CAD and cardiac anatomy and function:: Patient communicates acknowledgment, Family communicates acknowledgment, Needs reinforcement Explanation of diagnoses and procedures:: Patient communicates acknowledgment, Family communicates acknowledgment, Needs reinforcement Sign/Symptoms of AK:: Patient communicates acknowledgment, Family communicates acknowledgment, Needs reinforcement Antiplatelet therapy: Patient communicates acknowledgment, Family communicates acknowledgment, Needs reinforcement Proper use of NTG-SL: Patient communicates acknowledgment, Family communicates acknowledgment, Needs reinforcement Emergency procedures and activation of EMS: Patient communicates acknowledgment, Family communicates acknowledgment, Needs reinforcement Compliance of all prescribed medications: Patient communicates acknowledgment, Family communicates acknowledgment, Needs reinforcement Smoking Patient Nicotine/Smoking Risk Factors Are:: Cigarettes Recommendations Include:: Smoking cessation strategies/Smoking packet, Participation in a smoking cessation program Nicotine/Smoking Response Code:: Patient communicates acknowledgment, Family communicates acknowledgment, Needs reinforcement Dyslipidemia Patient Dyslipidemia Risk Factors Are:: Total Cholesterol, Triglycerides, HDL, LDL Recommendations Include:: Lipid profile not available Dyslipidemia Response Code:: Patient communicates acknowledgment, Family communicates acknowledgment, Needs reinforcement Overweight/Obesity Patient Overweight/Obesity Risk Factors Are:: Overweight = 26-29 Recommendations Include:: Weight loss of 5-10%, Reduced calorie diet, Exercise 5-7 times/week Overweight/Obesity:: Patient communicates acknowledgment, Family communicates acknowledgment, Needs reinforcement Hypertension Patient Hypertension Risk Factors Are:: No documented hx of HTN Heart Disease Patient Heart Disease Risk Factors Are:: Previous cardiac event Recommendations Include:: Educated family members of their risk, Educated family members of importance of prevention of heart disease Heart Disease Response Code:: Patient communicates acknowledgment, Family communicates acknowledgment, Needs reinforcement Diabetes Patient Diabetes Risk Factors Are:: No documented hx of diabetes Sedentary Patient Sedentary Risk Factors Are:: Lack of regular exercise Recommendations Include:: Aerobic exercise 5-7 times/week for 20-30 minutes continuously, Benefits of regular exercise, Discussed home walking program, Monitored Outpatient Cardiac Rehab Sedentary Response Code:: Patient communicates acknowledgment, Family communicates acknowledgment, Needs reinforcement Stress Patient Stress Risk Factors Are:: Patient denies stress as a risk factor
--- NOTE | 2022-06-23 16:44 | EKG12_ITS ---
Test Reason : POST CPI Blood Pressure : / mmHG Vent. Rate : 074 BPM Atrial Rate : 074 BPM P-R Int : 146 ms QRS Dur : 080 ms QT Int : 384 ms P-R-T Axes : 051 053 073 degrees QTc Int : 426 ms Normal sinus rhythm Nonspecific ST and T wave abnormality Abnormal ECG Confirmed by VLAD JAMES, EULALIO ([id number]), book or script editor ANDREA MOONEY ([id number]) on 06/27/2022 11:19:51 AM Referred By: Oswaldo Quintana Confirmed By:EULALIO CHU MD
[2022-06-23] MEDS: Metoprolol Tartrate 25 MG Tablet 12.5 MG PO (22:19)
[2022-06-23] MEDS: Atorvastatin Calcium 40 MG Tablet PO (22:19)
[2022-06-23] MEDS: Acetaminophen 325 MG Tablet 650 MG PO (22:41)
[2022-06-23] MEDS: ALPRAZolam 0.25 MG Tablet PO (22:42)
[2022-06-23] MEDS: MELATONIN 3 MG TABLET PO (22:42)
[2022-06-24 03:15] VITALS: BP 125/70; PULSE 89; RESP 18; TEMP 36.8; O2SAT 96
[2022-06-24 04:16] VITALS: BP 125/70; PULSE 89; RESP 16; TEMP 36.8; O2SAT 96
== END 2022-06-24 04:16 | disposition home or self-care (01) ==
LOC: CLSP 16:04 → PCU 16:04
PROVIDERS: Admitting Provider Internal Medicine Cardiovascular Disease; PCP Internal Medicine; Referring Provider Internal Medicine Cardiovascular Disease; Visit Provider Internal Medicine Cardiovascular Disease
DX: I25.10 Atherosclerotic heart disease of native coronary artery without angina pectoris (principal); I74.5 Embolism and thrombosis of iliac artery; I73.9 Peripheral vascular disease, unspecified; I25.2 Old myocardial infarction; Z95.5 Presence of coronary angioplasty implant and graft; E78.5 Hyperlipidemia, unspecified; I10 Essential (primary) hypertension; Z79.899 Other long term (current) drug therapy; Z79.02 Long term (current) use of antithrombotics/antiplatelets; Z79.82 Long term (current) use of aspirin; Z82.49 Family history of ischemic heart disease and other diseases of the circulatory system; F17.210 Nicotine dependence, cigarettes, uncomplicated
CPT/HCPCS: 36200; 36245; 36246; 36415; 37221; 37223; 75625; 75716; 76937; 85347; 85610; 85730; 93005; 96360; 96361; 99152; 99153; 99221; C1760; C1769; C1874; J7030; J7040; Q9967; C1725; C1876; C1884; C1887; C1894; G0378

== ENCOUNTER 2022-06-29 07:16 | Emergency (ER) | payer OTHER, SELFPAY ==
[2022-06-29 07:17] VITALS: BP 137/79; PULSE 89; RESP 16; TEMP 36.8; O2SAT 98; BMI 25.4
--- NOTE | 2022-06-29 07:57 | ADUL_ITS ---
Reason For Study: Groin pain Left Velocities Lt BUFFET ATTENDANT, 0.83 x 0.82 cm, 85.7 cm/sec. Lt SFA prox, 0.47 x 0.48 cm, 105.8 cm/sec. CFV is compressible with normal venous flow noted. No pseudoaneurysm or AVM noted in the left groin s/p cath. Preliminary report sent to ED. Procedure Exam performed portable in ED. VL/US Art Duplex Unilat Lower Ext Interpretation Summary Patent left femoral vessels with no pseudoaneurysm or fistula identified Ordering Physician: Susy Jarvis Referring Physician: Faina Celeste M.D. Performed By: Tammy Garcia RVT
--- NOTE | 2022-06-29 09:07 | EX.ED.GUMALE ---
HPI History of Present Illness Chief Complaint: Male Pain/Injury Informant: patient Narrative Narrative: Patient is a 56-year-old male with history of peripheral vascular disease status post balloon angioplasty and stent placement of the right common iliac artery and right external iliac artery on 06/23/[address] Quintana. He notes that postoperatively he had a lot of low back pain but notes that was actually better today. Today he felt his left groin for the first time and noticed area of swelling at the incision/insertion site. He was worried it could be something more severe so he came to the ER. He denies any new numbness or tingling of his legs. Denies any other complaints at this time. States he just wanted to get checked out. [facility] Medical History Anxiety disorder Atherosclerosis of coronary artery of [place] heart without angina pectoris Hyperlipidemia Hypertension Non-STEMI (non-ST elevated myocardial infarction) (~01/28/22) Home Medications aspirin 81 mg chewable tablet 81 mg PO DAILY heart health #100 tabs 02/21/22 [Rx Last Taken 06/23/22] atorvastatin 40 mg tablet 40 mg PO QHS 30 days #30 tabs 02/21/22 [Rx Last Taken Unknown] clopidogrel 75 mg tablet 75 mg PO DAILY 30 days #30 tabs 02/21/22 [Rx Last Taken 03/02/22] nitroglycerin 0.4 mg sublingual tablet 0.4 mg sublingual Q5-15M PRN chest pain #14 tabs 03/10/22 [Rx Last Taken Unknown] metoprolol tartrate 25 mg tablet 12.5 mg PO BID #90 tabs 06/07/22 [Rx Last Taken 06/23/22] cholecalciferol (vitamin D3) 25 mcg (1,000 unit) capsule 25 mcg PO DAILY 06/16/22 [History Last Taken Unknown] Allergy/AdvReac Type Severity Reaction Status Date / Time red dye Allergy Swelling Verified 06/29/22 07:17 yellow dye Allergy Swelling Verified 06/29/22 07:17 Penicillins [PCN] AdvReac Itching Verified 06/29/22 07:17 Family History Father Myocardial infarction Alcohol abuse Surgical History H/O right coronary artery stent placement (~01/28/22) History of coronary artery stent placement (~03/02/22) Social History adopted: No household members: spouse housing: house current occupational status: unemployed Smoking Status: Current every day smoker tobacco type: cigarettes alcohol intake: never substance use type: former substance user caffeine: Yes Type: carbonated beverages Number of servings: 3 nadine/latter day: Jainism seatbelt use: always do you feel safe at home: Yes ROS ROS ED Constitutional Constitutional ED: Denies chills or fever(s) Eyes Eyes: Denies change in vision Cardiovascular Cardiovascular: Denies chest pain Respiratory/Chest Respiratory/Chest: Denies cough Gastrointestinal Gastrointestinal: Denies abdominal pain, nausea or vomiting Genitourinary Genitourinary ED: Denies hematuria or urinary frequency Musculoskeletal Musculoskeletal: Reports back pain; Denies arthralgias or myalgias Integumentary Reports other Details: Swelling and pain of the left groin ; Denies rash EXAM Physical Exam Const Vital Signs: 06/29/22 07:17 Temperature 98.2 F Temperature Source Temporal Pulse Rate 89 Respiratory Rate 16 Blood Pressure 137/79 H Blood Pressure Mean 98 Pulse Ox 98 Oxygen Delivery Method Room Air Positive well nourished and well developed General Appearance ED: well developed HEENT Reports moist mucous membranes Resp normal respiratory effort GI non-tender, non-distended and no masses no CVA tenderness Back/Spine Back/Spine Narrative: No midline tenderness. Mild tenderness palpation of the lower lumbar paraspinal region bilaterally. Neuro oriented x3, moves all extremities, no focal motor deficits and no sensory deficits noted Skin Skin Narrative: Mild tenderness and localized swelling that is nonpulsatile to the left inguinal area. It is approximately 2 cm x 2 cm. Is not consistent with a hernia. There is ecchymosis of the bilateral groins as well as puncture sites which appear to be healing appropriately. No associated testicular swelling. MDM MDM MDM Narrative Medical decision making narrative: Patient is evaluated for left inguinal swelling after angioplasty to his lower extremities. No pulsatile mass appreciated. Arterial duplex ultrasound obtained which shows no pseudoaneurysm or AVM. Patient states he just wanted make sure he was fine. He has no other acute complaints. Case discussed briefly with Dr. Quintana who is agreeable with discharge home if there is no other concerns at this time. Patient counseled likely the swelling has been there since procedure he just noticed it today. Given return precautions. Patient is anxious to leave and does not want a wait for discharge paperwork but I did go over everything verbally. Discharge Plan Triage Chief Complaint: Male Pain/Injury ED Provider: Susy Jarvis Dx/Rx/DC Orders Clinical Impression: Visit for wound check, Left groin mass Prescriptions: No Action aspirin 81 mg tablet,chewable 81 mg PO DAILY Qty: 100 3RF atorvastatin 40 mg tablet 40 mg PO QHS 30 Days Qty: 30 11RF clopidogrel 75 mg tablet 75 mg PO DAILY 30 Days Qty: 30 11RF nitroglycerin 0.4 mg tablet, sublingual 0.4 mg sublingual Q5-15M PRN (Reason: chest pain) Qty: 14 3RF Rx Instructions: do not exceed 3 doses per episode metoprolol tartrate 25 mg tablet 12.5 mg PO BID Qty: 90 3RF cholecalciferol (vitamin D3) 25 mcg (1,000 unit) capsule 25 mcg PO DAILY Primary Care Provider: Faina Celeste Referrals: Faina Celeste MD [Primary Care Provider] - Disposition Disposition: Home, Self Care
== END 2022-06-29 09:24 | disposition home or self-care (01) ==
PROVIDERS: Emergency Provider Emergency Medicine; PCP Internal Medicine; Visit Provider Emergency Medicine
DX: Z51.89 Encounter for other specified aftercare (principal); R22.9 Localized swelling, mass and lump, unspecified; I25.10 Atherosclerotic heart disease of native coronary artery without angina pectoris; I25.2 Old myocardial infarction; F17.210 Nicotine dependence, cigarettes, uncomplicated; Z95.5 Presence of coronary angioplasty implant and graft
CPT/HCPCS: 93926; 99282

== ENCOUNTER 2022-10-03 12:51 | Emergency (ER) | payer OTHER, SELFPAY ==
[2022-10-03 12:52] VITALS: BP 162/78; PULSE 56; RESP 18; TEMP 36.5; O2SAT 100; BMI 26.4
--- NOTE | 2022-10-03 13:09 | EKG12_ITS ---
Test Reason : CP Blood Pressure : / mmHG Vent. Rate : 053 BPM Atrial Rate : 053 BPM P-R Int : 148 ms QRS Dur : 086 ms QT Int : 390 ms P-R-T Axes : 053 066 064 degrees QTc Int : 365 ms Sinus bradycardia Nonspecific T wave abnormality Abnormal ECG Confirmed by AFSHAN JAMES, WILLI ([id number]), videotape editor ANDREA MOONEY ([id number]) on 10/05/2022 9:15:48 AM Referred By: CHRISTINA/RUSH Confirmed By:WILLI CAVANAUGH MD
--- NOTE | 2022-10-03 13:10 | ED.VIS.CHEST ---
HPI History of Present Illness Chief Complaint: Chest Pain Narrative Narrative: Patient presents with chest pain that started this morning, he had 3 episodes each lasting a few minutes, was chest pain radiating to left arm. . He has no back pain or tearing sensation. No pleuritic component. No recent fevers or chills. No lower extreme edema or calf pain. PFSH PFS Medical History Anxiety disorder Atherosclerosis of coronary artery of [place] heart without angina pectoris Hyperlipidemia Hypertension Non-STEMI (non-ST elevated myocardial infarction) (~01/28/22) Home Medications aspirin 81 mg chewable tablet 81 mg PO DAILY heart health #100 tabs 02/21/22 [Rx Last Taken 06/23/22] atorvastatin 40 mg tablet 40 mg PO QHS 30 days #30 tabs 02/21/22 [Rx Last Taken Unknown] clopidogrel 75 mg tablet 75 mg PO DAILY 30 days #30 tabs 02/21/22 [Rx Last Taken 03/02/22] nitroglycerin 0.4 mg sublingual tablet 0.4 mg sublingual Q5-15M PRN chest pain #14 tabs 03/10/22 [Rx Last Taken Unknown] metoprolol tartrate 25 mg tablet 12.5 mg PO BID #90 tabs 06/07/22 [Rx Last Taken 06/23/22] cholecalciferol (vitamin D3) 25 mcg (1,000 unit) capsule 25 mcg PO DAILY 06/16/22 [History Last Taken Unknown] Allergy/AdvReac Type Severity Reaction Status Date / Time red dye Allergy Swelling Verified 07/12/22 13:36 yellow dye Allergy Swelling Verified 07/12/22 13:36 Penicillins [PCN] AdvReac Itching Verified 07/12/22 13:36 Family History Father Myocardial infarction Alcohol abuse Surgical History H/O right coronary artery stent placement (~01/28/22) History of coronary artery stent placement (~03/02/22) Social History adopted: No household members: spouse housing: house current occupational status: unemployed Smoking Status: Former smoker alcohol intake: never substance use type: former substance user caffeine: Yes Type: carbonated beverages Number of servings: 3 nadine/episcopal: Religious seatbelt use: always do you feel safe at home: Yes ROS ROS ED ROS Narrative Past medical history: Reviewed Medications: Reviewed Social history: Noncontributory Review of systems: All systems negative except as indicated General: No fever Eyes: No visual changes ENT: No upper airway congestion, normal voice Neck: No neck pain Cardiovascular: Chest pain as in HPI Respiratory: No shortness of breath or cough Gastrointestinal: No abdominal pain, nausea vomiting or diarrhea Genitourinary: No dysuria Musculoskeletal: Denies myalgias no difficulty with ambulation Skin: No rash Neurological: No memory loss, confusion or any focal weakness Psych: No recent behavioral changes Hematologic: No easy bleeding or easy bruising EXAM Physical Exam Narrative Exam Narrative: Physical exam General: Well nourished, Well developed, No Acute Distress Head: Normocephalic, Atraumatic Eyes: Conjunctiva not pale ENT: Moist mucous membranes Neck: Supple, Nontender, No lymphadenopathy Cardiovascular: Regular rate, Regular rhythm Respiratory: No distress, CTA bilaterally Abdomen: Soft, Nontender, Nondistended Back: Nontender, Normal Inspection. Negative for: CVA tenderness Extremities: Nontender, No edema Skin: Normal color, No rash Neurological: Alert, Normal Strength, Normal Sensation Psychological: Normal affect Const Vital Signs: 10/03/22 12:52 10/03/22 13:45 10/03/22 13:30 Temperature 97.7 F L Temperature Source Oral Pulse Rate 56 L Respiratory Rate 18 Blood Pressure 162/78 H 124/97 H Blood Pressure Mean 106 106 Pulse Ox 100 Oxygen Delivery Method Room Air Room Air 10/03/22 14:00 Temperature Temperature Source Pulse Rate 53 L Respiratory Rate 17 Blood Pressure 124/97 H Blood Pressure Mean 107 Pulse Ox 98 Oxygen Delivery Method MDM MDM MDM Narrative Medical decision making narrative: Patient has an unremarkable work-up in the emergency department. Troponins are unremarkable EKG is unchanged. I discussed with cardiology, Dr. Conklin I believe the patient can be safely discharged she is asymptomatic currently. Cardiology agrees. At this time there is no evidence of pneumonia or pneumothorax on the CT I am not worried about a pulmonary embolism. Patient be discharged in stable condition to follow-up with cardiology has an appointment early next week. Independent interpretation: Telemetry: Sinus rhythm with a rate in the 50s without ectopy Lab Data Labs: Laboratory Results - last 24 hr 10/03/22 10/03/22 10/03/22 13:00 13:00 13:59 WBC 11.3 H RBC 5.21 Hgb 14.7 Hct 45.8 MCV 87.9 MCH 28.2 MCHC 32.1 RDW Std Deviation 43.2 RDW Coeff of Benjamín 13.4 Plt Count 273 MPV 10.2 Immature Gran % (Auto) 0.400 Neut % (Auto) 67.0 Lymph % (Auto) 22.7 [place] % (Auto) 7.4 Eos % (Auto) 2.0 Baso % (Auto) 0.5 Absolute Neuts (auto) 7.6 Absolute Lymphs (auto) 2.57 Nucleated RBC % 0 Sodium 140 Potassium 4.5 Chloride 107 Carbon Dioxide 28.0 Anion Gap 5 BUN 9 Creatinine 1.06 Estim Creat Clear Calc 76.89 Est GFR (MDRD) Af Amer 92 Est GFR (MDRD) Non-Af 76 BUN/Creatinine Ratio 8.5 L Glucose 125 H Calcium 9.1 Troponin I High Sens 7 8 Radiography Diagnostic Testing: Clinical Impression(s) from Imaging Studies Chest X-Ray 10/03/22 13:15 IMPRESSION: Hyperinflation. The lungs are clear. Electronically Signed: Darrel Castañeda MD at 13:26 EDT , Chest x-ray read by me as normal EKG Initial EKG: Comments: Sinus rhythm with a rate of 53. Normal MT and QTc intervals. No ischemic changes. Interpreted by emergency doctor Discharge Plan Triage Chief Complaint: Chest Pain ED Provider: Omega Lindsey Dx/Rx/DC Orders Clinical Impression: Chest pain Instructions: ED Chest Pain, Uncertain Cause Prescriptions: No Action aspirin 81 mg tablet,chewable 81 mg PO DAILY Qty: 100 3RF atorvastatin 40 mg tablet 40 mg PO QHS 30 Days Qty: 30 11RF clopidogrel 75 mg tablet 75 mg PO DAILY 30 Days Qty: 30 11RF nitroglycerin 0.4 mg tablet, sublingual 0.4 mg sublingual Q5-15M PRN (Reason: chest pain) Qty: 14 3RF Rx Instructions: do not exceed 3 doses per episode metoprolol tartrate 25 mg tablet 12.5 mg PO BID Qty: 90 3RF cholecalciferol (vitamin D3) 25 mcg (1,000 unit) capsule 25 mcg PO DAILY Primary Care Provider: Faina Celeste Referrals: Faina Celeste MD [Primary Care Provider] - 3-5 Days Disposition Disposition: Home, Self Care
--- NOTE | 2022-10-03 13:15 | RAD_ITS ---
STUDY: X-RAY CHEST REASON FOR EXAM: Male, 56 years old. Chest pain TECHNIQUE: Single AP portable view of the chest. COMPARISON: Comparison is made with prior study dated January 28, 2022. FINDINGS: EKG electrodes are seen. There is hyperinflation of the lungs consistent with chronic obstructive lung disease (COPD). There is no demonstrated pleural abnormality. Normal size heart. Normal mediastinum and thao. Normal visualized pulmonary arteries. Normal visualized aortic arch and descending thoracic aorta. Normal visualized thoracic spine. Normal visualized ribs, clavicles, and shoulders. There is no demonstrated abnormality of the visualized soft tissue structures of the upper abdomen. RAD/Chest 1 View (Portable) IMPRESSION: Hyperinflation. The lungs are clear. Electronically Signed: Darrel Castañeda MD at 13:26 EDT ,
[2022-10-03 13:18] LABS: Absolute Lymphocyte Count 2.57 X10^3/uL (0.83-4.51); Absolute Neutrophil Count 7.6 X10^3/uL (2.0-7.7); Basophil# 0.06 X10^3/uL; Basophil% 0.5 % (0-1); Eosinophil# 0.23 X10^3/uL; Hematocrit 45.8 % (40-54); Hemoglobin 14.7 g/dL (13.0-16.5); Lymphocyte # 2.57 X10^3/ul (0.83-4.51); Lymphocyte % 22.7 % (19-41); Mean Corp Hgb Conc 32.1 g/dL (32-36); Mean Corpuscular Hgb 28.2 pg (27.0-32.0); Mean Corpuscular Volume 87.9 fL (80-94); Mean Platelet Vol. 10.2 fl (6.2-12.0); Monocyte# 0.84 X10^3/uL; Monocyte% 7.4 % (0-10); NRBC Flagged by Analyzer 0 % (0-5); Neutrophil # 7.56 X10^3/uL (2.7-7.7); Platelet Count 273 K/mm3 (150-450); RBC Distribution Width CV 13.4 % (11.6-14.6); RBC Distribution Width SD 43.2 fl (35.1-43.9); Red Blood Count 5.21 M/mm3 (4.6-6.2); White Blood Count 11.3 K/mm3 (4.4-11.0)
[2022-10-03] MEDS: Aspirin 81 MG TAB.CHEW 324 MG PO (13:28)
[2022-10-03 13:30] VITALS: BP 124/97
[2022-10-03 13:34] LABS: Anion Gap 5 (5-15); BUN 9 mg/dL (7-18); BUN/Creat Ratio 8.5 RATIO (10-20); Calcium,Total 9.1 mg/dL (8.5-10.1); Chloride 107 mmol/L (98-107); Creatinine, Serum 1.06 mg/dL (0.70-1.30); EST Glomerular Filtration Rate 76 mL/min (>60); Est Glom Filt Rate - Afr Amer 92 mL/min (>60); Estimated Creatinine Clearance 76.89 ml/min; Glucose 125 mg/dL (74-106); Potassium 4.5 mmol/L (3.5-5.1); Sodium Level 140 mmol/L (136-145); Troponin-I HS (w/2H Reflex) 7 pg/mL (3.0-78.0)
[2022-10-03 14:00] VITALS: BP 124/97; PULSE 53; RESP 17; O2SAT 98
[2022-10-03 14:23] LABS: Troponin-I HS 8 pg/mL (3.0-78.0)
[2022-10-03 14:31] VITALS: BP 144/77; PULSE 52; RESP 19; O2SAT 98
[2022-10-03 15:15] LABS: Reflex Troponin-HS? (from REC) Y
== END 2022-10-03 15:31 | disposition home or self-care (01) ==
PROVIDERS: Emergency Provider Emergency Medicine; PCP Internal Medicine; Visit Provider Emergency Medicine
DX: R07.9 Chest pain, unspecified (principal); I25.10 Atherosclerotic heart disease of native coronary artery without angina pectoris; E78.5 Hyperlipidemia, unspecified; Z87.891 Personal history of nicotine dependence; I10 Essential (primary) hypertension; Z82.49 Family history of ischemic heart disease and other diseases of the circulatory system; Z95.5 Presence of coronary angioplasty implant and graft; I25.2 Old myocardial infarction
CPT/HCPCS: 71045; 80048; 84484; 85025; 93005; 99283; A4216

== ENCOUNTER → 2022-11-09 | Outpatient (CLI) | payer OTHER, SELFPAY ==
[2022-11-09 18:45] LABS: AST(SGOT) 29 U/L (15-37); Alanine Aminotransfer ALT/SGPT 48 U/L (16-61); CPK Total, Creatine Kinase 90 U/L (39-308); Cholesterol 135 mg/dL (200); High Density Lipoprotein 36 mg/dL; Triglycerides 111 mg/dL; Very Low Density Lipoprotein 22 mg/dL (5-40)
== END | disposition home or self-care (01) ==
LOC: MTLAB 14:07
PROVIDERS: PCP Internal Medicine; Referring Provider Internal Medicine Cardiovascular Disease; Visit Provider Internal Medicine Cardiovascular Disease
DX: E78.00 Pure hypercholesterolemia, unspecified (principal); I73.9 Peripheral vascular disease, unspecified; I25.10 Atherosclerotic heart disease of native coronary artery without angina pectoris; I25.2 Old myocardial infarction; I10 Essential (primary) hypertension; Z95.5 Presence of coronary angioplasty implant and graft
CPT/HCPCS: 36415; 80061; 82550; 84450; 84460

== ENCOUNTER → 2022-11-22 | Outpatient (CLI) | payer OTHER, SELFPAY ==
--- NOTE | 2022-11-22 12:48 | CDU_ITS ---
Reason For Study: Lightheadedness on standing Rt. Velocities/BP Lt. Velocities/BP Prox CCA 104.7/17.6 cm/sec. Prox CCA 108.3/24.3 cm/sec. Mid CCA 104.7/22.5 cm/sec. Mid CCA 101/22.5 cm/sec. Dist CCA 102.3/20 cm/sec. Dist CCA 91.9/22.5 cm/sec. Prox ICA 71.6/18.8 cm/sec. Prox ICA 66.7/17.6 cm/sec. Mid ICA 86.3/23.7 cm/sec. Mid ICA 81.4/22.5 cm/sec. Dist ICA 90/22.5 cm/sec. Dist ICA 85.1/23.7 cm/sec. Rt. ICA/CCA = 0.86. Lt. ICA/CCA = 0.84. Prox ECA 115.8/20 cm/sec. Prox ECA 85.1/16.3 cm/sec. Rt. Vert. 35.2/6.9 cm/sec. Lt. Vert. 61.9/22.3 cm/sec. Right Extracranial There is intimal thickening but no significant atherosclerotic plaque noted in the right common carotid artery. There is heterogeneous, irregular atherosclerotic plaque noted in the right internal carotid artery. There is intimal thickening but no significant atherosclerotic plaque noted in the right external carotid artery. Antegrade flow is noted in the right vertebral artery. Left Extracranial There is intimal thickening but no significant atherosclerotic plaque noted in the left common carotid artery. There is heterogeneous, irregular atherosclerotic plaque noted in the left internal carotid artery. There is intimal thickening but no significant atherosclerotic plaque noted in the left external carotid artery. Antegrade flow is noted in the left vertebral artery. Procedure Carotid Duplex [id number]. This is a Carotid Duplex examination using B-mode, color flow and specral Doppler. Exam performed in department. VL/Carotid Duplex Ultrasound Interpretation Summary Irregular calcific plaque at the proximal right internal carotid artery with le ss than 50% stenosis Less than 50% stenosis right external carotid artery Irregular calcific plaque at the proximal left internal carotid artery with les s than 50% stenosis Less than 50% stenosis left external carotid artery Patent antegrade vertebral arteries bilaterally Ordering Physician: Faina Celeste Referring Physician: Faina Celeste Performed By: Tammy Garcia RVT
== END | disposition home or self-care (01) ==
PROVIDERS: PCP Internal Medicine; Referring Provider Internal Medicine; Visit Provider Internal Medicine
DX: R42 Dizziness and giddiness (principal); I25.10 Atherosclerotic heart disease of native coronary artery without angina pectoris
CPT/HCPCS: 93880

== ENCOUNTER → 2023-04-21 | Outpatient (CLI) | payer OTHER, SELFPAY ==
--- NOTE | 2023-04-21 09:23 | BI_ITS ---
MAMMOGRAPHY - BILATERAL DIAGNOSTIC REASON FOR EXAM: Male, 57 years old. Tender right breast lump. PERTINENT HISTORY: TECHNIQUE: Digital bilateral breast lokesh (3D mammographic acquisition) in the CC and MLO projections. 2-D mediolateral oblique (MLO) and craniocaudad (CC) views of both breasts were obtained. CAD: Full Field Digital Mammography with Computer Added Detection was performed. COMPARISON: None. Baseline examination. FINDINGS: Breast Composition: Heterogeneous breast tissue is seen in the retroareolar region of the right breast. This most likely represents gynecomastia. Correlation with ultrasound is recommended. There are no dominant masses or suspicious calcifications. No other significant abnormalities are identified. BI/DIAG MAMM W/CAD, BILAT IMPRESSION: Heterogeneous breast tissue is seen in the retroareolar region of the right breast. Correlation with ultrasound is recommended for further evaluation. ASSESSMENT CATEGORY: BIRADS Category 0: Incomplete. Need additional imaging evaluation. A letter regarding these results will be sent to the patient by the facility within 30 days. Approximately 10% of breast cancers are not detected by mammography. A normal mammogram should not delay biopsy of a clinically suspicious abnormality. Electronically Signed: Darrel Castañeda MD at 10:27 EST ,
--- NOTE | 2023-04-21 09:34 | US_ITS ---
STUDY: ULTRASOUND BREAST - RIGHT REASON FOR EXAM: Male, 57 years old. Pain in the right breast. TECHNIQUE: Axial and longitudinal images of the RIGHT breast were performed with a high resolution ultrasound transducer. # OF IMAGES: 32 COMPARISON: Comparison is made with prior mammogram done earlier today. FINDINGS: RIGHT Breast: Heterogeneously fibroglandular tissue seen in the retroareolar region of the right breast. This is suggestive of gynecomastia. US/Breast Limited Unilateral IMPRESSION: Findings suggestive of gynecomastia. ASSESSMENT CATEGORY: BIRADS Category 2: Benign. A letter regarding these results will be sent to the patient by the facility within 30 days. Electronically Signed: Darrel Castañeda MD at 13:39 EST ,
== END | disposition home or self-care (01) ==
LOC: OPBI 09:22
PROVIDERS: PCP Internal Medicine; Referring Provider Internal Medicine; Visit Provider Internal Medicine
DX: N60.21 Fibroadenosis of right breast (principal)
CPT/HCPCS: 76642; 77062; 77066; G0279

== ENCOUNTER → 2023-06-12 | Outpatient (CLI) | payer OTHER, SELFPAY ==
--- NOTE | 2023-06-12 18:44 | CT_ITS ---
STUDY: CT BRAIN WITH AND WITHOUT CONTRAST REASON FOR EXAM: Male, 57 years old. Lightheadedness, mental status change RADIATION DOSAGE (If Supplied By Facility): CTDIvol = ( 26.12 ) mGy, DLP = ( 1206.60 ) mGycm TECHNIQUE: Transaxial CT imaging of the brain was performed pre and post contrast administration. The examination was performed with intravenous administration of IV 100mL Isovue-370. Individualized dose optimization techniques were used for this CT. COMPARISON: None. FINDINGS: Normal soft tissue structures. Normal calvarium. Normal size ventricles and extra-axial spaces for the patient''s age. Normal white matter tracts of the cerebral hemispheres. Normal basal ganglia and thalami. Normal brainstem. Normal cerebellum. There is no intracranial hemorrhage. There are no findings of an acute ischemic infarction. Normal visualized paranasal sinuses. No suspicious enhancing lesion after contrast administration CT/CTA Head W/WO Contrast IMPRESSION: Normal unenhanced and enhanced CT scan of the brain. Electronically Signed: Nilesh Castano MD at 8:31 EST ,
[2023-06-12 19:12] LABS: CREATININE FINGERSTICK < 1.0 mg/dL (0.70-1.30); EGFR FINGERSTICK > 60.0000 mL/min (>60)
== END | disposition home or self-care (01) ==
LOC: CT 18:43
PROVIDERS: PCP Internal Medicine; Visit Provider Internal Medicine
DX: R42 Dizziness and giddiness (principal); I73.9 Peripheral vascular disease, unspecified; I25.10 Atherosclerotic heart disease of native coronary artery without angina pectoris; I10 Essential (primary) hypertension; F17.200 Nicotine dependence, unspecified, uncomplicated
CPT/HCPCS: 70496; Q9967

== ENCOUNTER 2023-08-16 07:22 | Day surgery (SDC) | payer OTHER, SELFPAY ==
--- NOTE | 2023-08-14 14:40 | RAD_ITS ---
INDICATION: DAWN EXAMINATION/TECHNIQUE: X-RAY - XR Chest 2 Views COMPARISON: FINDINGS: LINES/DEVICES: None. LUNGS: No consolidation, edema or effusion. No pneumothorax. MEDIASTINUM AND CARDIOVASCULAR STRUCTURES: Cardiac silhouette not enlarged. Central airways and mediastinal contour are unremarkable. BONES AND SOFT TISSUES: No demonstrated acute osseous changes. RAD/Chest PA and Lateral IMPRESSION: No radiographic evidence of acute cardiopulmonary disease. Electronically Signed: Maverick Bland MD at 14:56 EDT ,
[2023-08-14 14:53] LABS: Absolute Lymphocyte Count 3.07 X10^3/uL (0.83-4.51); Absolute Neutrophil Count 7.7 X10^3/uL (2.0-7.7); Basophil# 0.05 X10^3/uL; Basophil% 0.4 % (0-1); Eosinophil# 0.17 X10^3/uL; Eosinophils% 1.4 % (0-5); Hematocrit 43.7 % (40-54); Lymphocyte # 3.07 X10^3/ul (0.83-4.51); Lymphocyte % 25.2 % (19-41); Mean Corpuscular Hgb 28.4 pg (27.0-32.0); Mean Corpuscular Volume 88.6 fL (80-94); Mean Platelet Vol. 10.2 fl (6.2-12.0); Monocyte# 1.13 X10^3/uL; Monocyte% 9.3 % (0-10); NRBC Flagged by Analyzer 0 % (0-5); Neutrophil # 7.69 X10^3/uL (2.7-7.7); Neutrophil % 63.2 % (47-70); Platelet Count 271 K/mm3 (150-450); RBC Distribution Width CV 13.2 % (11.6-14.6); RBC Distribution Width SD 43.2 fl (35.1-43.9); Red Blood Count 4.93 M/mm3 (4.6-6.2); White Blood Count 12.2 K/mm3 (4.4-11.0)
[2023-08-14 15:07] LABS: Prothrombin Time (Protime)PT. 13.6 SECONDS (11.7-14.9)
[2023-08-14 15:44] LABS: AST(SGOT) 31 U/L (15-37); Alanine Aminotransfer ALT/SGPT 67 U/L (16-61); Anion Gap 5 (5-15); BUN 12 mg/dL (7-18); BUN/Creat Ratio 10.3 RATIO (10-20); CPK Total, Creatine Kinase 105 U/L (39-308); Calcium,Total 9.1 mg/dL (8.5-10.1); Chloride 107 mmol/L (98-107); Cholesterol 133 mg/dL (200); Creatinine, Serum 1.16 mg/dL (0.70-1.30); EST Glomerular Filtration Rate 69 mL/min (>60); Est Glom Filt Rate - Afr Amer 83 mL/min (>60); Glucose 108 mg/dL (74-106); High Density Lipoprotein 33 mg/dL; Sodium Level 140 mmol/L (136-145); Triglycerides 247 mg/dL; Very Low Density Lipoprotein 49 mg/dL (5-40)
[2023-08-16 07:28] VITALS: BMI 27.8
--- NOTE | 2023-08-16 10:53 | PCM.OP.BLANK ---
Problems Associated Problem List Diagnoses (1) Peripheral arterial disease: Operative Report Date of Procedure: 08/16/23 Indications: 1. Peripheral arterial disease 2. Left lower extremity claudication Procedures performed: 1. Distal abdominal aortogram 2. Abdominal aortography with bilateral distal runoff 3. Selective placement of catheter in the left common femoral, left external iliac and left common iliac artery. Technique of procedure: Access was obtained through the right radial artery. #6 Ukrainian pigtail catheter was advanced over a J-wire into the distal abdominal aorta under fluoroscopic guidance. A contrast injection was made in the distal abdominal aorta and distal abdominal aortography and bilateral iliac angiography was performed. Another contrast injection was made in the abdominal aorta and this time bilateral distal runoff with digital subtraction angiography was performed to bilateral feet. After reviewing the angiographic films, the pigtail catheter was withdrawn over J-wire. Next 0.18 inch catheter and subsequently a 0.035 inch quick cross catheter was advanced over a 0.014 inch run-through wire into the left superficial femoral artery. This was hooked up to the manifold. The catheter was withdrawn with measurement of pressures in the left common femoral artery, left external iliac artery, left common iliac artery and abdominal aorta. Only a 10 mmHg gradient was noted between the left common iliac artery and abdominal aorta. The 0.035 inch quick cross catheter was withdrawn over a J-wire. Hemostasis secured in the right radial artery using TR band. Angiographic findings: 1. Distal abdominal aorta. The distal abdominal aorta is noted to have mild aneurysmal dilatation. 2. Left iliac angiography with runoff: a. The left ostial common iliac artery has about 60 to 65% stenosis. About 10 mmHg gradient was noted across the lesion. b. The left external iliac artery has about 50% disease in its distal part with no significant gradient across it. c. The left common femoral artery has no significant disease. d. The left superficial femoral artery has mild disease in its distal mid part. e. On the left side, two-vessel runoff is noted below the knee. 3. Right iliac angiography with runoff: a. Previously deployed stents to the right common iliac and right external iliac artery are patent. b. The right ostial superficial femoral artery has about 70 to 80% disease. c. Three-vessel runoff noted below the knee on the right side. Recommendations: 1. Maximize medical therapy. 2. Evaluate for nonvascular causes of left lower extremity discomfort. 3. If claudication symptoms of the right lower extremity, then percutaneous intervention to the right ostial superficial femoral artery.
[2023-08-16 14:23] LABS: ACT Activated Clotting Time 255 sec (74-137)
== END 2023-08-16 13:00 | disposition home or self-care (01) ==
PROVIDERS: PCP Internal Medicine; Referring Provider Internal Medicine Cardiovascular Disease; Visit Provider Internal Medicine Cardiovascular Disease
DX: I70.212 Atherosclerosis of native arteries of extremities with intermittent claudication, left leg (principal); I25.2 Old myocardial infarction; E78.5 Hyperlipidemia, unspecified; I10 Essential (primary) hypertension; N52.9 Male erectile dysfunction, unspecified; Z87.891 Personal history of nicotine dependence; Z95.1 Presence of aortocoronary bypass graft; Z95.5 Presence of coronary angioplasty implant and graft; Z79.899 Other long term (current) drug therapy; Z79.82 Long term (current) use of aspirin
CPT/HCPCS: 36200; 36245; 36246; 36415; 71046; 75625; 75716; 80048; 80061; 82550; 84450; 84460; 85025; 85347; 85610; 99152; 99153; C1769; J7040; Q9967; C1887; C1894

== ENCOUNTER → 2023-08-31 | Outpatient (CLI) | payer OTHER, SELFPAY ==
--- NOTE | 2023-08-31 06:32 | MRI_ITS ---
STUDY: MRI LUMBAR SPINE WITHOUT CONTRAST REASON FOR EXAM: Male, 57 years old. PAIN IN BACK AND LOWER EXTREMITIES TECHNIQUE: Standardized fat and water weighted pulse sequences were obtained in the sagittal and axial planes. COMPARISON: None FINDINGS: T12-L1: Normal endplates. Normal disc height, hydration and morphology. Normal bilateral facet joints. Normal central canal and bilateral lateral recesses. Normal bilateral intervertebral neural foramina. Normal lumbar lordosis. There is no substantial scoliosis. Normal conus medullaris that terminates at T12-L1 L1-2: Normal endplates. Normal disc height, hydration and tiny left posterolateral disc protrusion Normal bilateral facet joints. Normal central canal and bilateral lateral recesses. Normal bilateral intervertebral neural foramina. L2-3: Normal endplates. Normal disc height, hydration and morphology. Normal bilateral facet joints. Normal central canal and bilateral lateral recesses. Normal bilateral intervertebral neural foramina. L3-4: Normal endplates. Normal disc height, hydration and morphology. Normal bilateral facet joints. Normal central canal and bilateral lateral recesses. Normal bilateral intervertebral neural foramina. L4-5: Normal endplates. Normal disc height, desiccation and small left foraminal disc protrusion. Minor facet arthropathy.. Normal central canal and bilateral lateral recesses. Moderate left neural foraminal stenosis L5-S1: Normal endplates. Normal disc height, desiccation and minimal annular bulge with small right foraminal disc protrusion.. Mild facet arthropathy. Normal central canal and bilateral lateral recesses. Moderate to severe right neural foraminal stenosis. Normal visualized sacral ala. Normal visualized paraspinous soft tissue structures. MRI/Spine Lumbar (Routine) IMPRESSION: No acute fracture or other significant bone pathology.. Neuroforaminal stenosis at L4-5 on the left and L5-S1 on the right secondary to disc disease and bony hypertrophy Other findings as above Electronically Signed: Jose Manuel Barroso MD at 16:07 EDT ,
== END | disposition home or self-care (01) ==
LOC: MRI 06:16
PROVIDERS: PCP Internal Medicine; Referring Provider Internal Medicine Cardiovascular Disease; Visit Provider Internal Medicine Cardiovascular Disease
DX: M54.50 Low back pain, unspecified (principal); I73.9 Peripheral vascular disease, unspecified; I25.10 Atherosclerotic heart disease of native coronary artery without angina pectoris; E78.5 Hyperlipidemia, unspecified; Z95.5 Presence of coronary angioplasty implant and graft
CPT/HCPCS: 72148

== ENCOUNTER → 2023-09-22 | Outpatient (CLI) | payer OTHER, SELFPAY ==
--- NOTE | 2023-09-22 13:49 | CDU_ITS ---
Reason For Study: LIGHTHEADEDNESS, DIZZINESS Rt. Velocities/BP Lt. Velocities/BP Prox CCA 164.9/29.8 cm/sec. Prox CCA 149.0/34.0 cm/sec. Mid CCA 113.7/20.4 cm/sec. Mid CCA 161.8/30.3 cm/sec. Dist CCA 121.6/30.3 cm/sec. Dist CCA 123.5/32.1 cm/sec. Prox ICA 98.1/37.9 cm/sec. Prox ICA 99.7/32.1 cm/sec. Mid ICA 118.5/32.7 cm/sec. Mid ICA 101.6/ cm/sec. Dist ICA 120.4/29.0 cm/sec. Dist ICA 97.9/30.3 cm/sec. Rt. ICA/CCA = 120.4/113.7=1.1. Lt. ICA/CCA = 101.6/161.8=0.6. Prox ECA 132.6/26.7 cm/sec. Prox ECA 158.2/19.4 cm/sec. Rt. Vert. 52.8/11.2 cm/sec. Lt. Vert. 63.9/18.5 cm/sec. Right Extracranial There is intimal thickening but no significant atherosclerotic plaque noted in the right common carotid artery. There is heterogeneous, irregular atherosclerotic plaque noted in the right internal carotid artery. There is intimal thickening but no significant atherosclerotic plaque noted in the right external carotid artery. Antegrade flow is noted in the right vertebral artery. Left Extracranial There is intimal thickening but no significant atherosclerotic plaque noted in the left common carotid artery. There is heterogeneous, irregular atherosclerotic plaque noted in the left internal carotid artery. There is no significant atherosclerotic plaque noted in the left external carotid artery. Antegrade flow is noted in the left vertebral artery. Procedure Carotid Duplex [id number]. This is a Carotid Duplex examination using B-mode, color flow and specral Doppler. Exam performed in department. VL/Carotid Duplex Ultrasound Interpretation Summary Mild (<50%) stenosis right extracranial internal carotid. Mild (<50%) stenosis left extracranial internal carotid. Patent and antegrade vertebrals bilaterally. Ordering Physician: Oswaldo Quintana Referring Physician: Faina Celeste Performed By: Adri Do, BRANDI, RVT
== END | disposition home or self-care (01) ==
LOC: CVS 13:46
PROVIDERS: PCP Internal Medicine; Referring Provider Internal Medicine Cardiovascular Disease; Visit Provider Internal Medicine Cardiovascular Disease
DX: I73.9 Peripheral vascular disease, unspecified (principal); E78.5 Hyperlipidemia, unspecified; R42 Dizziness and giddiness; F17.200 Nicotine dependence, unspecified, uncomplicated
CPT/HCPCS: 93880

== ENCOUNTER → 2024-03-14 | Outpatient (CLI) | payer OTHER, SELFPAY ==
[2024-03-14 14:07] LABS: Absolute Lymphocyte Count 3.27 X10^3/uL (0.83-4.51); Absolute Neutrophil Count 8.5 X10^3/uL (2.0-7.7); Basophil# 0.07 X10^3/uL; Basophil% 0.5 % (0-1); Eosinophil# 0.16 X10^3/uL; Eosinophils% 1.2 % (0-5); Hematocrit 48.6 % (40-54); Hemoglobin 15.1 g/dL (13.0-16.5); Lymphocyte # 3.27 X10^3/ul (0.83-4.51); Lymphocyte % 24.7 % (19-41); Mean Corp Hgb Conc 31.1 g/dL (32-36); Mean Corpuscular Hgb 27.9 pg (27.0-32.0); Mean Corpuscular Volume 89.7 fL (80-94); Mean Platelet Vol. 10.1 fl (6.2-12.0); Monocyte# 1.07 X10^3/uL; Monocyte% 8.1 % (0-10); NRBC Flagged by Analyzer 0 % (0-5); Neutrophil # 8.54 X10^3/uL (2.7-7.7); Neutrophil % 64.7 % (47-70); Platelet Count 276 K/mm3 (150-450); RBC Distribution Width CV 13.7 % (11.6-14.6); RBC Distribution Width SD 44.3 fl (35.1-43.9); Red Blood Count 5.42 M/mm3 (4.6-6.2); White Blood Count 13.2 K/mm3 (4.4-11.0)
[2024-03-14 14:30] LABS: Vitamin D,25 Hydroxy 35.6 ng/mL
[2024-03-14 14:38] LABS: Hemoglobin A1c 6.1 % (3.8-5.6)
[2024-03-14 14:39] LABS: ALB/GLOB Ratio 0.9 RATIO (0.9-2.4); AST(SGOT) 53 U/L (15-37); Alanine Aminotransfer ALT/SGPT 119 U/L (16-61); Albumin, Serum 3.6 g/dL (3.2-5.0); Alkaline Phosphatase 110 U/L (45-117); Anion Gap 4 (5-15); BUN 11 mg/dL (7-18); BUN/Creat Ratio 9.6 RATIO (10-20); Calcium,Total 9.8 mg/dL (8.5-10.1); Chloride 107 mmol/L (98-107); Cholesterol 140 mg/dL (200); Creatinine, Serum 1.14 mg/dL (0.70-1.30); EST Glomerular Filtration Rate 70 mL/min (>60); Est Glom Filt Rate - Afr Amer 85 mL/min (>60); Globulin 3.8 g/dL (2.2-4.2); Glucose 105 mg/dL (74-106); High Density Lipoprotein 46 mg/dL; Magnesium 2.1 mg/dL (1.6-2.6); PSA,Total - Annual Screen 1.44 ng/mL (0.00-4.00); Potassium 5.1 mmol/L (3.5-5.1); Protein, Total 7.4 g/dL (6.4-8.2); Sodium Level 140 mmol/L (136-145); Triglycerides 120 mg/dL; Very Low Density Lipoprotein 24 mg/dL (5-40)
== END | disposition home or self-care (01) ==
LOC: LAB 13:35
PROVIDERS: PCP Internal Medicine; Referring Provider Internal Medicine; Visit Provider Internal Medicine
DX: I10 Essential (primary) hypertension (principal); I25.2 Old myocardial infarction; E78.5 Hyperlipidemia, unspecified; I73.9 Peripheral vascular disease, unspecified; Z12.5 Encounter for screening for malignant neoplasm of prostate; Z13.220 Encounter for screening for lipoid disorders; E55.9 Vitamin D deficiency, unspecified; R73.9 Hyperglycemia, unspecified
CPT/HCPCS: 36415; 80053; 80061; 82306; 83036; 83735; 84153; 84443; 85025; G0103

== ENCOUNTER → 2024-04-01 | Outpatient (CLI) | payer OTHER, SELFPAY ==
--- NOTE | 2024-04-01 09:28 | US_ITS ---
EXAM: US ABDOMEN LIMITED, RIGHT UPPER QUADRANT CLINICAL INDICATION: Elevated LFTs TECHNIQUE: Real-time ultrasound of the right upper quadrant with image documentation. COMPARISON: No relevant prior studies available. FINDINGS: LIVER: The liver is increased in echogenicity. The liver measures 17.8 cm in length. No intrahepatic biliary ductal dilation. GALLBLADDER: There is an echogenic focus in the gallbladder compatible with tiny gallstone. The gallbladder wall measures 3 mm. No pericholecystic fluid. Negative sonographic Cortés''s sign. COMMON BILE DUCT: The common bile duct measures 7 mm. The proximal common bile duct is within normal limits for the patient''s age. PANCREAS: Pancreas is partially obscuring overlying bowel gas. No pancreatic ductal dilatation. RIGHT KIDNEY: Unremarkable. There is no hydronephrosis. No shadowing calculus. No focal lesion or perinephric collection is demonstrated. The right kidney measures 12.1 x 5.4 x 5.8 cm. US/Liver IMPRESSION: Cholelithiasis with no sonographic evidence of cholecystitis. There is fatty infiltration of the liver. Electronically Signed: Jacek Rick MD at 22:58 EST ,
== END | disposition home or self-care (01) ==
LOC: US 09:24
PROVIDERS: PCP Internal Medicine; Referring Provider Internal Medicine; Visit Provider Internal Medicine
DX: R94.5 Abnormal results of liver function studies (principal)
CPT/HCPCS: 76705

== ENCOUNTER → 2025-03-06 | Outpatient (CLI) | payer OTHER, SELFPAY ==
[2025-03-06 15:26] LABS: Hematocrit 43.9 % (40-54); Hemoglobin 14.2 g/dL (13.0-16.5); Immature Granulocytes Count 0.070 X10^3/uL (0.0-0.0); Mean Corp Hgb Conc 32.3 g/dL (32-36); Mean Corpuscular Volume 86.2 fL (80-94); Mean Platelet Vol. 10.4 fl (6.2-12.0); NRBC Flagged by Analyzer 0 % (0-5); Platelet Count 267 K/mm3 (150-450); RBC Distribution Width CV 14.4 % (11.6-14.6); RBC Distribution Width SD 45.2 fl (35.1-43.9); Red Blood Count 5.09 M/mm3 (4.6-6.2); White Blood Count 13.4 K/mm3 (4.4-11.0)
[2025-03-06 15:48] LABS: AST(SGOT) 51 U/L (<=37); Alanine Aminotransfer ALT/SGPT 76 U/L (<=46); Albumin, Serum 4.3 g/dL (3.4-4.8); Alkaline Phosphatase 116 U/L (40-129); Anion Gap 10 (5-15); BUN 16 mg/dL (4-19); BUN/Creat Ratio 14.0 RATIO (10-20); Calcium,Total 9.9 mg/dL (7.6-11.0); Carbon Dioxide 26.8 mmol/L (21.0-32.0); Chloride 102 mmol/L (98-108); Cholesterol 154 mg/dL (<=200); Globulin 3.5 g/dL (2.2-4.2); Glucose 94 mg/dL (70-99); Low Density Lipoprotein Calc. 86 mg/dL; Potassium 4.7 mmol/L (3.3-5.1); Triglycerides 137 mg/dL; Very Low Density Lipoprotein 27 mg/dL (5-40); cholesterol:hdl ratio screen 3.50
[2025-03-06 16:08] LABS: Magnesium 2.4 mg/dL (1.5-2.2); Vitamin B12 844 pg/mL (180-914); Vitamin D,25 Hydroxy 45.6 ng/mL (30-100)
== END | disposition home or self-care (01) ==
LOC: LAB 14:35
PROVIDERS: Internal Medicine Cardiovascular Disease; PCP Internal Medicine; Referring Provider Internal Medicine; Visit Provider Internal Medicine
DX: R94.5 Abnormal results of liver function studies (principal); I25.10 Atherosclerotic heart disease of native coronary artery without angina pectoris; I10 Essential (primary) hypertension; I73.9 Peripheral vascular disease, unspecified; E78.5 Hyperlipidemia, unspecified; I25.2 Old myocardial infarction; E53.8 Deficiency of other specified B group vitamins; E55.9 Vitamin D deficiency, unspecified; R73.9 Hyperglycemia, unspecified; Z95.5 Presence of coronary angioplasty implant and graft
CPT/HCPCS: 36415; 80053; 80061; 82306; 82607; 83036; 83735; 84443; 85025

== ENCOUNTER → 2025-03-24 | Outpatient (CLI) | payer OTHER, SELFPAY ==
--- NOTE | 2025-03-24 14:55 | ART_ITS ---
Reason For Study Reason For Study: RLE Claudication Procedure A bilateral lower extremity continuous wave Doppler with analog waveform analysis,segmental pressures,and ankle brachial indexes with exercise. Left Segmental Pressures Left brachial= 127mmHg. Left high thigh = 109mmHg. Left low thigh = 119mmHg. Left calf = 116mmHg. Left posterior tibial artery = 113mmHg. Left dorsalis pedis artery = 113mmHg. Left digit = 71 mmHg. The left posterior tibial artery waveforms are biphasic. The left dorsalis pedis waveforms are biphasic. Right Segmental Pressures Right brachial= 124mmHg. Right low thigh = 124mmHg. Right calf = 104mmHg. Right posterior tibial artery = 110mmHg. Right dorsalis pedis artery = 91mmHg. Right digit = 82 mmHg. The right posterior tibial artery waveforms are biphasic. The right dorsalis pedis waveforms are biphasic. Indices The right ankle brachial index by the posterior tibial artery is 0.87. The right ankle brachial index by the dorsalis pedis is 0.72. The right digital-brachial index is 0.65. The right post exercise ankle brachial index is 0.48. The left ankle brachial index by the posterior tibial artery is 0.89. The left ankle brachial index by the dorsalis pedis is 0.89. The left digital-brachial index is 0.56. The left post exercise ankle brachial index is 0.81. VL/Lower Ext Art Exam w/ Exercise Interpretation Summary Right ESSIE 0.87, moderate arterial insufficiency. Doppler/PVR waveforms and segm ental pressures reveal distal SFA/popliteal disease. Right lower extremity with abnormal response to exercise and post exercise ESSIE in the severe category. Left ESSIE 0.89, moderate arterial insufficiency. Doppler/PVR waveforms and segme ntal pressures reveal aorto-iliac disease. Left lower extremity exhibits no change in response to exercise. Ordering Physician: Oswaldo Quintana Referring Physician: Faina Celeste Performed By: Leo Coffman RVT and Student
== END | disposition home or self-care (01) ==
LOC: CVS 14:52
PROVIDERS: PCP Internal Medicine; Referring Provider Internal Medicine Cardiovascular Disease; Visit Provider Internal Medicine Cardiovascular Disease
DX: I73.9 Peripheral vascular disease, unspecified (principal); I25.10 Atherosclerotic heart disease of native coronary artery without angina pectoris
CPT/HCPCS: 93924